=== PATIENT | female | born 1970 | race Two or more races ===

== ENCOUNTER 2020-08-09 08:29 | Outpatient (RCR) | payer OTHER, SELFPAY | END 2020-09-16 13:02 | disposition home or self-care (01) | LOC: HO.WCC 08:29 | PROVIDERS: PCP Internal Medicine; Visit Provider Plastic Surgery | DX: S21.001D Unspecified open wound of right breast, subsequent encounter (principal); I16.0 Hypertensive urgency | CPT/HCPCS: 11042; 99212 ==

== ENCOUNTER 2024-01-09 14:13 | Outpatient (AMB) | payer OTHER, SELFPAY ==
[2024-01-09 14:16] VITALS: BP 138/80; PULSE 103; O2SAT 97; BMI 31.9
--- NOTE | 2024-01-09 14:16 | HO.NEPHOV_ITS ---
HPI HPI Comments History of Present Illness Details Kimmy is a middle aged woman with SLE Recently hospitalized Currently on tapering dose of Prednisone BP is well controlled Off Spironolatone Metoprolol has been added PFSH Family History Mother Diabetes Father Diabetes Hypertension Social History Patient Tobacco Use Status: Never used Tobacco Vital Signs 01/09/24 14:16 Height 5 ft 4 in Weight 186 lb BMI 31.9 BP 138/80 Blood Pressure Location Lt brachial Position Sitting Pulse 103 H Pulse Source Pulse Oximeter Pulse Oximetry (%) 97 Oxygen Delivery Method Room Air Physical Exam Vital Signs: Last Vital Signs Pulse 103 H 01/09/24 14:16 BP 138/80 01/09/24 14:16 Pulse Ox 97 01/09/24 14:16 Oxygen Delivery Method Room Air 01/09/24 14:16 BMI result Body Mass Index 31.9 Const General: comfortable Nutritional Appearance: well nourished Orientation/consciousness: patient oriented x3 HEENT Head: No normal to inspection Mouth: moist mucous membranes Neck Neck: Yes supple and Yes no JVD Resp Auscultation: clear to auscultation bilaterally, no rales and rub present Cardio Jugular venous distension: no JVD Palpation: no palpable S3 and no palpable S4 Heart sounds: no rubs GI Palpation (GI): Soft to palpation and nontender Percussion: No Fluid wave present General: Yes no CVA tenderness Back/Spine/Pelvis Back: no CVA tenderness Skin General skin exam: no rashes or lesions noted Neuro General: patient oriented x3 Extrem General: Yes no pedal edema and No clubbing Assessment & Plan Assessment & Plan (1) SLE (systemic lupus erythematosus related syndrome): Code(s): M32.9 - Systemic lupus erythematosus, unspecified (2) CKD (chronic kidney disease): Code(s): N18.9 - Chronic kidney disease, unspecified (3) HTN (hypertension): Code(s): I10 - Essential (primary) hypertension (4) Albuminuria: Code(s): R80.9 - Proteinuria, unspecified Plan 53-year-old woman with a history of lupus nephritis and hypertension. At present renal function stable with a serum creatinine of 0.8 mg/dL. This is her baseline. We will continue to monitor urinary protein excretion. Blood pressure is better controlled For now we will continue with spironolactone. No changes were made to her antihypertensive medications. SLE. Currently being managed by a office clinician and she is on mycophenolate. Hydroxychloroquine and prednisone. Orders: Orders Basic Metabolic Panel 4 Months N18.9 - Chronic kidney disease, unspecified, M32.9 - Systemic lupus erythematosus, unspecified Creatinine Urine 4 Months N05.9 - Unspecified nephritic syndrome with unspecified morphologic changes, N18.9 - Chronic kidney disease, unspecified, M32.9 - Systemic lupus erythematosus, unspecified Total Protein Urine Random 4 Months N18.9 - Chronic kidney disease, unspecified, M32.9 - Systemic lupus erythematosus, unspecified UA and rflx microscopic 4 Months N18.9 - Chronic kidney disease, unspecified, M32.9 - Systemic lupus erythematosus, unspecified Coding Level of Care Code Est Pt Level 4 (35008) Diagnoses SLE (systemic lupus erythematosus related syndrome) M32.9 CKD (chronic kidney disease) N18.9 HTN (hypertension) I10 Albuminuria R80.9 Results Reviewed Results Reviewed: 01/04/24 Cr 0.7 HgB 9.8 UA: aib 1+ RBC 8 Nephrology Results: No Data to Display
== END 2024-01-09 14:56 | disposition home or self-care (01) ==
PROVIDERS: PCP Internal Medicine; Visit Provider Internal Medicine Hypertension Specialist
DX: M32.9 Systemic lupus erythematosus, unspecified (principal); I12.9 Hypertensive chronic kidney disease with stage 1 through stage 4 chronic kidney disease, or unspecified chronic kidney disease; N18.9 Chronic kidney disease, unspecified; R80.9 Proteinuria, unspecified
CPT/HCPCS: 99214

== ENCOUNTER → 2024-01-09 14:13 | Outpatient (BNVA) | payer OTHER, SELFPAY | PROVIDERS: PCP Internal Medicine; Visit Provider Internal Medicine Hypertension Specialist ==

== ENCOUNTER 2024-05-28 13:52 | Outpatient (AMB) | payer OTHER, SELFPAY ==
[2024-05-28 14:05] VITALS: BP 140/82; PULSE 122; O2SAT 98; BMI 31.8
--- NOTE | 2024-05-28 14:05 | HO.NEPHOV ---
Vital Signs 05/28/24 14:05 Height 5 ft 4 in Weight 185 lb BMI 31.8 BP 140/82 H Blood Pressure Location Lt brachial Position Sitting Pulse 122 H Pulse Source Pulse Oximeter Pulse Oximetry (%) 98 Oxygen Delivery Method Room Air Intake Visit Reasons: May follow up/ Conf Sheriff Required: No Accompanied by: Self / Same As Patient Allergies acetaminophen Allergy (Mild, Verified 05/28/24 14:07) Unknown codeine Allergy (Mild, Verified 05/28/24 14:07) Unknown sulfamethoxazole [From Sulfamethoxazole-Trimethoprim] Allergy (Mild, Verified 05/28/24 14:07) Unknown trimethoprim [From Sulfamethoxazole-Trimethoprim] Allergy (Mild, Verified 05/28/24 14:07) Unknown HPI Comments Details: Kimmy is a middle aged woman with SLE Recently hospitalized Currently on tapering dose of Prednisone BP is well controlled Off Spironolatone Metoprolol has been added 05/28/24 DEveloped anemia Had rectal bleed- s/p colonoscopy s/p transfusion Following with Dr. Andrea [facility] Family History Mother Diabetes Father Diabetes Hypertension Social History Patient Tobacco Use Status: Never used Tobacco Physical Exam Vital Signs: Last Vital Signs Pulse 122 H 05/28/24 14:05 BP 140/82 H 05/28/24 14:05 Pulse Ox 98 05/28/24 14:05 Oxygen Delivery Method Room Air 05/28/24 14:05 BMI result Body Mass Index 31.8 Results Reviewed Results Reviewed: 01/04/24 Cr 0.7 HgB 9.8 UA: aib 1+ RBC 8 Nephrology Results: No Data to Display Assessment & Plan Assessment & Plan (1) SLE (systemic lupus erythematosus related syndrome): Code(s): M32.9 - Systemic lupus erythematosus, unspecified Category: Medical (2) CKD (chronic kidney disease): Code(s): N18.9 - Chronic kidney disease, unspecified Category: Medical (3) HTN (hypertension): Code(s): I10 - Essential (primary) hypertension Category: Medical (4) Albuminuria: Code(s): R80.9 - Proteinuria, unspecified Category: Medical Plan 53-year-old woman with a history of lupus nephritis and hypertension. At present renal function stable with a serum creatinine of 0.8 mg/dL. This is her baseline. We will continue to monitor urinary protein excretion. Blood pressure is better controlled For now we will continue with spironolactone. No changes were made to her antihypertensive medications. SLE. Currently being managed by a night patrol inspector and she is on mycophenolate. Hydroxychloroquine and prednisone. Anemia secondary to blood loss. h/o HEmorrhoids work up in progress Orders: Orders Basic Metabolic Panel 1 Week I10 - Essential (primary) hypertension, M32.9 - Systemic lupus erythematosus, unspecified, N18.9 - Chronic kidney disease, unspecified Complete Blood Count Auto Diff 1 Week I10 - Essential (primary) hypertension, M32.9 - Systemic lupus erythematosus, unspecified, N18.9 - Chronic kidney disease, unspecified Coding Level of Care Code Est Pt Level 4 (91268) Diagnoses SLE (systemic lupus erythematosus related syndrome) M32.9 CKD (chronic kidney disease) N18.9 HTN (hypertension) I10 Albuminuria R80.9
== END 2024-05-28 14:23 | disposition home or self-care (01) ==
PROVIDERS: PCP Internal Medicine; Visit Provider Internal Medicine Hypertension Specialist
DX: M32.9 Systemic lupus erythematosus, unspecified (principal); I12.9 Hypertensive chronic kidney disease with stage 1 through stage 4 chronic kidney disease, or unspecified chronic kidney disease; N18.9 Chronic kidney disease, unspecified; R80.9 Proteinuria, unspecified
CPT/HCPCS: 99214

== ENCOUNTER → 2024-05-28 13:52 | Outpatient (BNVA) | payer OTHER, SELFPAY | PROVIDERS: PCP Internal Medicine; Visit Provider Internal Medicine Hypertension Specialist ==

== ENCOUNTER 2024-08-13 08:53 | Outpatient (AMB) | payer OTHER, SELFPAY ==
--- NOTE | 2024-08-13 08:51 | HO.NEPHOV_ITS ---
Vital Signs 08/13/24 08:53 Height 5 ft 4 in Weight 195 lb BMI 33.5 BP 115/80 Blood Pressure Location Rt brachial Position Sitting Pulse 82 Pulse Source Pulse Oximeter Pulse Oximetry (%) 96 Oxygen Delivery Method Room Air Intake Visit Reasons: 3 mon follow up/ Conf Biomedical Engineering Supervisor Required: No Accompanied by: Self / Same As Patient Allergies acetaminophen Allergy (Mild, Verified 08/13/24 08:55) Unknown codeine Allergy (Mild, Verified 08/13/24 08:55) Unknown sulfamethoxazole [From Sulfamethoxazole-Trimethoprim] Allergy (Mild, Verified 1 08:55) Unknown trimethoprim [From Sulfamethoxazole-Trimethoprim] Allergy (Mild, Verified 08/13/24 08:55) Unknown Medication List - Last Reconciled 08/13/24 by James eLe MD albuterol sulfate 90 mcg/actuation inhalation amlodipine 10 mg PO DAILY aspirin 81 mg PO DAILY atorvastatin 20 mg PO DAILY budesonide-formoterol 160-4.5 mcg/actuation (Symbicort) inhalation carvedilol 25 mg PO BID cetirizine 10 mg PO DAILY cyanocobalamin (vitamin B-12) 1,000 mcg sublingual DAILY cyclobenzaprine 10 mg PO BEDTIME doxycycline monohydrate 100 mg PO DAILY PRN hydrochlorothiazide 25 mg PO DAILY hydroxychloroquine 200 mg PO BID levothyroxine 200 mcg PO DAILY magnesium oxide 400 mg PO DAILY metformin 1,000 mg PO DAILY methylprednisolone 0 mg PO mycophenolate mofetil (CellCept) 500 mg PO ONCE omeprazole 20 mg PO DAILY prednisone 10 mg PO DAILY tiotropium bromide 2.5 mcg/actuation (Spiriva Respimat) 2 puffs inhalation DAILY HPI Comments Details: Kimmy is a middle aged woman with SLE Recently hospitalized Currently on tapering dose of Prednisone BP is well controlled Off Spironolatone Metoprolol has been added 05/28/24 DEveloped anemia Had rectal bleed- s/p colonoscopy s/p transfusion Following with Dr. Andrea [facility] Family History Mother Diabetes Father Diabetes Hypertension Social History Patient Tobacco Use Status: Never used Tobacco Physical Exam Vital Signs: Last Vital Signs Pulse 82 08/13/24 08:53 BP 115/80 08/13/24 08:53 Pulse Ox 96 08/13/24 08:53 Oxygen Delivery Method Room Air 08/13/24 08:53 BMI result Body Mass Index 33.5 Const General: comfortable; No acute distress Orientation/consciousness: patient oriented x3 Eyes General: appearance normal, both eyes and all related structures Visual Hercules: normal visual hercules by confrontation Neck Neck: Yes supple and Yes no JVD Resp Effort & Inspection: normal respiratory effort and respiratory effort not decreased Auscultation: rhonchi Cardio Palpation: no palpable S3 and no palpable S4 Heart sounds: no rubs GI Inspection: Yes normal to inspection Palpation (GI): Soft to palpation Percussion: Yes normal to percussion Auscultation: normal bowel sounds General: Yes no CVA tenderness Back/Spine/Pelvis Back: no CVA tenderness Skin General skin exam: no petechiae and no purpura Neuro General: patient oriented x3 and no focal motor deficits Extrem General: No clubbing and No edema Results Reviewed Nephrology Results: No Data to Display Assessment & Plan Assessment & Plan (1) SLE (systemic lupus erythematosus related syndrome): Code(s): M32.9 - Systemic lupus erythematosus, unspecified Category: Medical (2) CKD (chronic kidney disease): Code(s): N18.9 - Chronic kidney disease, unspecified Category: Medical (3) HTN (hypertension): Code(s): I10 - Essential (primary) hypertension Category: Medical (4) Albuminuria: Code(s): R80.9 - Proteinuria, unspecified Category: Medical Plan 53-year-old woman with a history of lupus nephritis and hypertension. At present renal function stable with a serum creatinine of 0.8 mg/dL. This is her baseline. We will continue to monitor urinary protein excretion. Blood pressure is better controlled Off spironolactone. Now on Amlodipine/Coreg/HCTZ No changes were made to her antihypertensive medications. SLE. Currently being managed by a deaf/hard of hearing specialist and she is on mycophenolate. Hydroxychloroquine and prednisone. Anemia secondary to blood loss. h/o Hemorrhoids s/p Transfusion HgB up to 9.8 NO further bleeding Coding Level of Care Code Est Pt Level 4 (76596) Diagnoses SLE (systemic lupus erythematosus related syndrome) M32.9 CKD (chronic kidney disease) N18.9 HTN (hypertension) I10 Albuminuria R80.9
[2024-08-13 08:53] VITALS: BP 115/80; PULSE 82; O2SAT 96; BMI 33.5
== END 2024-08-13 09:09 | disposition home or self-care (01) ==
PROVIDERS: PCP Internal Medicine; Visit Provider Internal Medicine Hypertension Specialist
DX: M32.9 Systemic lupus erythematosus, unspecified (principal); I12.9 Hypertensive chronic kidney disease with stage 1 through stage 4 chronic kidney disease, or unspecified chronic kidney disease; N18.9 Chronic kidney disease, unspecified; R80.9 Proteinuria, unspecified
CPT/HCPCS: 99213

== ENCOUNTER → 2024-08-13 08:53 | Outpatient (BNVA) | payer OTHER, SELFPAY | PROVIDERS: PCP Internal Medicine; Visit Provider Internal Medicine Hypertension Specialist ==

== ENCOUNTER 2024-12-24 10:31 | Outpatient (AMB) | payer OTHER, SELFPAY ==
[2024-12-24 10:34] VITALS: BP 112/78; PULSE 87; O2SAT 95; BMI 35.2
--- NOTE | 2024-12-24 10:34 | HO.NEPHOV ---
Vital Signs 12/24/24 10:34 Height 5 ft 4 in Weight 205 lb BMI 35.2 BP 112/78 Blood Pressure Location Lt brachial Position Sitting Pulse 87 Pulse Source Pulse Oximeter Pulse Oximetry (%) 95 Oxygen Delivery Method Room Air Intake Visit Reasons: 4m follow up/ Conf Space Controller Required: No Accompanied by: Self / Same As Patient Allergies acetaminophen Allergy (Mild, Verified 12/24/24 10:36) Unknown codeine Allergy (Mild, Verified 12/24/24 10:36) Unknown sulfamethoxazole [From Sulfamethoxazole-Trimethoprim] Allergy (Mild, Verified 12/24/24 10:36) Unknown trimethoprim [From Sulfamethoxazole-Trimethoprim] Allergy (Mild, Verified 12/24/24 10:36) Unknown Medication List - Last Reconciled 12/24/24 by James Lee MD albuterol sulfate 90 mcg/actuation inhalation amlodipine 10 mg PO DAILY aspirin 81 mg PO DAILY atorvastatin 20 mg PO DAILY budesonide-formoterol 160-4.5 mcg/actuation (Symbicort) inhalation carvedilol 25 mg PO BID cetirizine 10 mg PO DAILY clonidine HCl 0.2 mg PO DAILY cyanocobalamin (vitamin B-12) 1,000 mcg sublingual DAILY cyclobenzaprine 10 mg PO BEDTIME PRN doxycycline monohydrate 100 mg PO DAILY PRN hydrochlorothiazide 25 mg PO DAILY hydroxychloroquine 200 mg PO BID ibuprofen 600 mg PO PRN levothyroxine 200 mcg PO DAILY magnesium oxide 400 mg PO DAILY metformin 500 mg PO TID methylprednisolone 4 mg PO PRN mycophenolate mofetil (CellCept) 500 mg PO ONCE omeprazole 20 mg PO DAILY prednisone 10 mg PO DAILY tiotropium bromide 2.5 mcg/actuation (Spiriva Respimat) 2 puffs inhalation DAILY HPI Comments Details: Kimmy is a middle aged woman with SLE Recently hospitalized Currently on tapering dose of Prednisone; BP is well controlled ; Off Spironolatone Metoprolol has been added 05/28/24 DEveloped anemia; Had rectal bleed- s/p colonoscopy; s/p transfusion ;Following with Dr. Andrea 12/24/24 Doing better. No new issues today. PFSH Family History Mother Diabetes Father Diabetes Hypertension Social History Patient Tobacco Use Status: Never used Tobacco Physical Exam Vital Signs: Last Vital Signs Pulse 87 12/24/24 10:34 BP 112/78 12/24/24 10:34 Pulse Ox 95 12/24/24 10:34 Oxygen Delivery Method Room Air 12/24/24 10:34 BMI result Body Mass Index 35.2 Const General: comfortable; No acute distress Orientation/consciousness: patient oriented x3 Eyes General: appearance normal, both eyes and all related structures Visual Hercules: normal visual hercules by confrontation Neck Neck: Yes supple and Yes no JVD Resp Effort & Inspection: normal respiratory effort and respiratory effort not decreased Auscultation: rhonchi Cardio Palpation: no palpable S3 and no palpable S4 Heart sounds: no rubs GI Inspection: Yes normal to inspection Palpation (GI): Soft to palpation Percussion: Yes normal to percussion Auscultation: normal bowel sounds General: Yes no CVA tenderness Back/Spine/Pelvis Back: no CVA tenderness Skin General skin exam: no petechiae and no purpura Neuro General: patient oriented x3 and no focal motor deficits Extrem General: No clubbing and No edema Results Reviewed Nephrology Results: No Data to Display Assessment & Plan Assessment & Plan (1) SLE (systemic lupus erythematosus related syndrome): Code(s): M32.9 - Systemic lupus erythematosus, unspecified Category: Medical (2) CKD (chronic kidney disease): Code(s): N18.9 - Chronic kidney disease, unspecified Category: Medical (3) HTN (hypertension): Code(s): I10 - Essential (primary) hypertension Category: Medical (4) Albuminuria: Code(s): R80.9 - Proteinuria, unspecified Category: Medical Plan 53-year-old woman with a history of lupus nephritis and hypertension. At present renal function stable with a serum creatinine of 0.8 mg/dL. This is her baseline. We will continue to monitor urinary protein excretion. Blood pressure is better controlled Off spironolactone. Now on Amlodipine/Coreg/HCTZ ; No changes were made to her antihypertensive medications. SLE. Currently being managed by a anthropology professor and she is on mycophenolate. Hydroxychloroquine and prednisone. Anemia secondary to blood loss. h/o Hemorrhoids; s/p Transfusion ; HgB up to 9.8 ;NO further bleeding Orders: Orders Basic Metabolic Panel 5 Months N18.9 - Chronic kidney disease, unspecified, I10 - Essential (primary) hypertension, M32.9 - Systemic lupus erythematosus, unspecified Total Protein Urine Random 5 Months N18.9 - Chronic kidney disease, unspecified, I10 - Essential (primary) hypertension, M32.9 - Systemic lupus erythematosus, unspecified Creatinine Urine 5 Months N18.9 - Chronic kidney disease, unspecified, I10 - Essential (primary) hypertension, M32.9 - Systemic lupus erythematosus, unspecified UA and rflx microscopic 5 Months N18.9 - Chronic kidney disease, unspecified, I10 - Essential (primary) hypertension, M32.9 - Systemic lupus erythematosus, unspecified Coding Level of Care Code Est Pt Level 4 (58128) Diagnoses SLE (systemic lupus erythematosus related syndrome) M32.9 CKD (chronic kidney disease) N18.9 HTN (hypertension) I10 Albuminuria R80.9
--- OUTSIDE RECORDS SUMMARY | 2024-12-24 11:10 | XMS_ITS | Clinical Summary ---
Author Organization [facility] Address [address] [place] [address] Phone Care Team Providers Care Academic Vice President Name Role Phone Jamir Rubi MD Primary Care Provider Allergies Active Allergy Reactions Criticality Noted Date Comments Acetaminophen-Codeine 01/20/2021 Codeine Other (see comments) 01/20/2021 Sulfamethoxazole-Trimethoprim Other (see comments) 01/20/2021 Medications fluticasone-salm eterol (ADVAIR DISKUS) 100-50 MCG/DOSE diskus inhaler Advair Diskus 100 mcg-50 mcg/dose powder for inhalation Active Cobalamin Combinations (Vitamin D75-Hjfsi Acid) 500-400 MCG tablet Take 1 tablet by mouth 1 (one) time each day Active Albuterol Sulfate (ProAir RespiClick) 108 (90 Base) MCG/ACT aerosol powder Active Vitamin A 3 MG (45867 UT) capsule Take 1 capsule by mouth 1 (one) time each day 10/30/20 20 Active valACYclovir (VALTREX) 1 g tablet valacyclovir 1 gram tablet Active triamcinolone (KENALOG) 0.1 % cream triamcinolone acetonide 0.1 % topical cream Active traMADol (ULTRAM) 50 MG tablet Take 1 tablet by mouth Active predniSONE (DELTASONE) 5 MG tablet Take 1.5 tablets by mouth 1 (one) time each day Active omeprazole (PriLOSEC) [address] capsule Take 1 capsule by mouth in the morning and 1 capsule in the evening. Active mycophenolate (CELLCEPT) 500 MG tablet Take 1 tablet by mouth 1 (one) time each day Active metFORMIN (GLUCOPHAGE) 500 MG tablet Take 2 tablets by mouth 1 (one) time each day Active lidocaine (LIDODERM) 5 % patch lidocaine 5 % topical patch Active levothyroxine (SYNTHROID, LEVOTHROID) 200 MCG tablet Take 2 tablets by mouth every other day Active hyoscyamine (LEVBID) 0.375 MG 12 hr tablet Take 375 mcg by mouth 12/30/19 21 Active hydroxychloroqui ne (PLAQUENIL) 200 MG tablet Take 2 tablets by mouth 1 (one) time each day Active doxycycline (ADOXA) 100 MG tablet Take 100 mg by mouth 12/29/19 21 Active cyclobenzaprine (FLEXERIL) 10 MG tablet cyclobenzaprine 10 mg tablet Active cholecalciferol (VITAMIN D-3) 25 MCG (1000 UT) capsule Take 2 capsules by mouth 2 (two) times a day Active cetirizine (ZyrTEC) 10 MG tablet Take 10 mg by mouth 1 (one) time each day 12/20/19 21 Active Calcium Carbonate-Vitami n D (calcium-vitamin D) 500-200 MG-UNIT tablet Take 1 tablet by mouth 1 (one) time each day Active Symbicort 160-4.5 MCG/ACT inhaler INHALE 2 PUFFS BY MOUTH TWICE A DAY 10/30/20 20 Active aspirin (ST NBA) 81 MG EC tablet Take 1 tablet by mouth 1 (one) time each day Active labetalol (NORMODYNE) 100 MG tablet Take 200 mg by mouth 04/05/20 21 Active amLODIPine (NORVASC) 10 MG tablet Take 10 mg by mouth 1 (one) time each day 10/06/20 22 Active methylPREDNISolo ne (MEDROL DOSPAK) 4 MG tablet Take 4 mg by mouth 08/09/20 22 Active Banophen 25 MG capsule Take 25 mg by mouth 1 (one) time each day 10/05/20 22 Active Incruse Ellipta 62.5 MCG/ACT aerosol powder INHALE 1 PUFF BY INHALATION ROUTE EVERY DAY AT THE SAME TIME EACH DAY 10/04/20 22 Active spironolactone-h ydroCHLOROthiazi de (Aldactazide) 25-25 MG per tablet Take 0.5 tablets by mouth 1 (one) time each day 30 tablet 3 01/25/20 23 Active Active Problems Problem Noted Date Diagnosed Date Prediabetes 01/24/2023 Obese class II 01/24/2023 Chest pain 01/24/2023 Asthma 01/24/2023 Contact dermatitis 01/20/2021 Rheumatoid arthritis 01/20/2021 Proteinuria 01/20/2021 Chronic kidney disease stage 1 01/20/2021 Essential hypertension 01/20/2021 Systemic lupus erythematosus 01/20/2021 Pain in both feet 07/25/2017 Plantar fasciitis 07/25/2017 Immunizations Name Administration Dates Next Due Influenza, Quadrivalent, With Preservative 10/10 Family History Medical History Relation Comments Diabetes Father Hypertension Father Diabetes Mother Heart disease Sibling sister, heart mu rmus Relation Status Comments Father Alive Mother Alive Sibling Social History Tobacco Use Types Packs/Day Years Used Date Smoking Tobacco: Never Smokeless Tobacco: Never Tobacco Cessation:Counseling Given: Not Answered Alcohol Use Standard Drinks/Week Comments No 0 (1 standard drink = 0.6 oz pur e alcohol) Comments Unknown Sex and Gender Information Value Date Recorded Sex Assigned at Not on file Legal Sex Female 4:50 PM EST Gender Identity Not on file Sexual Orientation Not on file Last Filed Vital Signs Vital Sign Reading Time Taken Comments Blood Pressure 144/90 01/24/2023 1:40 PM EDT Pulse 81 01/24/2023 1:40 PM EDT Temperature - - Respiratory Rate - - Oxygen Saturation 99% 01/24/2023 1:40 PM EDT Inhaled Oxygen Concentration - - Weight 96.4 kg (212 lb 9.6 oz) 01/24/2023 1:40 P M EDT Height 162.6 cm (5' 4 ) 10/13/2019 12:00 PM EST Body Mass Index 36.49 10/13/2019 12:00 PM EST Plan of Treatment Health Maintenance Due Date Last Done Comments Breast Cancer Screening 1972 Pneumococcal Vaccine: Pediat rics (0 to 5 Years) and At-Risk Patients (6 to 64 Years) (1 of 2 - PCV) 1978 Hepatitis B Vaccine (1 of 3 - 19+ 3-dose series) 10/18 Colorectal Cancer Screening: Annual FOBT 2021 Colorectal Cancer Screening: Colonoscopy 2021 Colorectal Cancer Screening: Sigmoidoscopy 2021 Influenza Vaccine (#1) 2024 10/10/[address] [place] [address] [place] [address] [facility] Care Teams Academic Vice President Relationship Specialty Start Date End Date Jamir Rubi MD [address] [place] [address] [place] [address] PCP - General 11/15/20
--- OUTSIDE RECORDS SUMMARY | 2024-12-24 11:10 | XMS_ITS | Clinical Summary ---
Author Organization [facility] Address [address] [place] [address] Care Team Providers Care Application Technician Name Role Phone Jamir Rubi MD Primary Care Provider [phone] Allergies Active Allergy Reactions Criticality Noted Date Comments Sulfamethoxazole-Trimethoprim 2023 Azathioprine 12/11/2023 Menthol 12/11/2023 Acetaminophen-Codeine 12/11/2023 Valsartan Anaphylaxis High 12/11/2023 Medications Medication Sig Dispensed Refills Start Date End Date Status acetaminophen (Tylenol 8 Hour Arthritis Pain) 650 MG CR tablet Take 1 tablet (650 mg total) by mouth every 8 (eight) hours as needed for pain. 0 Active predniSONE (DELTASONE) 5 mg tablet Take 2 tablets (10 mg total) by mouth. 0 Active albuterol 108 (90 Base) MCG/ACT inhaler Inhale 2 puffs into the lungs every 6 (six) hours as needed for wheezing. 0 Active albuterol (PROVENTIL) (2.5 MG/3ML) 0.083% nebulizer solution Take 3 mL (2.5 mg total) by nebulization every 6 (six) hours as needed for wheezing. 0 Active Umeclidinium [place] (Incruse Ellipta) 62.5 MCG/ACT AEPB Inhale into the lungs. 0 Active budesonide-formotero l (Symbicort) 160-4.5 MCG/ACT inhaler Inhale 2 inhalations into the lungs 2 (two) times a day. 0 Active EPINEPHrine 0.3 MG/0.3ML SOSY Inject as directed. 0 Ac tive cetirizine (ZyrTEC) 10 MG tablet Take 1 tablet (10 mg total) by mouth daily. 0 Active diphenhydrAMINE (Banophen) 25 mg capsule Take 1 capsule (25 mg total) by mouth every 6 (six) hours as needed for itching. 0 Active aspirin EC 81 MG tablet Take 1 tablet (81 mg total) by mouth daily. 0 Active mycophenolate (CELLCEPT) 500 MG tablet Take by mouth 2 (two) times a day. 0 Active hydroxychloroquine (PLAQUENIL) 200 MG tablet Take by mouth daily. 0 Acti ve Multiple Vitamins-Minerals (MULTI FOR HER 50+ PO) Take by mouth. 0 Active zinc sulfate (ZINCATE) 220 (50 Zn) MG capsule Take 1 capsule (220 mg total) by mouth daily. 0 Active magnesium oxide 400 (240 Mg) MG TABS tablet Take 1 tablet (400 mg total) by mouth 2 (two) times a day. 0 Active vitamin B-12 (CYANOCOBALAMIN) 500 MCG tablet Take 2 tablets (1,000 mcg total) by mouth daily. 0 Active vitamin A 3 MG (76205 UT) CAPS capsule Take 1 capsule (3 mg total) by mouth daily. 0 Active Turmeric-Angie 150-25 MG CHEW Chew by mouth. 0 Active Calcium Carbonate-Vit D-Min (GNP Calcium Plus 600 +D) 600-200 MG-UNIT TABS Take by mouth. 0 Active vitamin D3 (cholecalciferol) 25 MCG (1000 UT) tablet Take 1 tablet (25 mcg total) by mouth daily. 0 Active aspirin-sod bicarb-citric acid ([place]) 325 MG TBEF Take 325 mg by mouth every 6 (six) hours as needed. 0 Active omeprazole (PriLOSEC) 20 MG capsule Take 1 capsule (20 mg total) by mouth daily. 0 Active desonide (DESOWEN) 0.05 % ointment Apply topically 2 (two) times a day. 0 Active mupirocin (BACTROBAN) 2 % ointment Apply topically 3 (three) times a day. 0 Active clobetasol (TEMOVATE) 0.05 % external solution Apply topically 2 (two) times a day. 0 Active amLODIPine (NORVASC) tablet 10 mg Take 1 tablet (10 mg total) by mouth daily. 0 Active levothyroxine (SYNTHROID) tablet 200 mcg Take 1 tablet (200 mcg total) by mouth every morning on an empty stomach. 0 Active Tiotropium [place] Monohydrate (Spiriva Respimat) 2.5 MCG/ACT AERS Inhale into the lungs. 0 Active hydroCHLOROthiazide (HYDRODIURIL) tablet 25 mg Take 1 tablet (25 mg total) by mouth. 0 07/21/2015 Active Active Problems Problem Noted Date Diagnosed Date Gastrointestinal hemorrhage 05/15/2024 Social History Tobacco Use Types Packs/Day Years Used Date Smoking Tobacco: Never Smokeless Tobacco: Never Tobacco Cessation:Counseling Given: Not Answered Alcohol Use Standard Drinks/Week Comments Yes 0 (1 standard drink = 0.6 oz pur e alcohol) wine occ Sex and Gender Information Value Date Recorded Sex Assigned at Female 11/22/2023 10:04 AM EST Gender Identity Not on file Sexual Orientation Not on file Job Start Date Occupation Industry Not on file Not on file Not on file Last Filed Vital Signs Vital Sign Reading Time Taken Comments Blood Pressure 125/82 07/29/2024 1:08 PM EDT Pulse 74 07/29/2024 1:08 PM EDT Temperature 36.2 ??C (97.2 ??F) 07/29/2024 1:08 PM ED T Respiratory Rate 18 06/04/2024 1:39 PM EDT Oxygen Saturation 98% 07/29/2024 1:08 PM EDT Inhaled Oxygen Concentration - - Weight 88.9 kg (196 lb) 07/29/2024 1:08 PM EDT Height - - Body Mass Index - - Plan of Treatment Health Maintenance Due Date Last Done Comments Hepatitis B Vaccines (1 of 3 - 3-dose series) 1972 Hepatitis C Screening 1972 Pneumococcal Vaccine (1 of 2 - PCV) 1978 Depression Screening 1984 Preventative Health Evaluation 1990 Shingrix-Zoster Vaccine (1 o f 2) 1991 Cervical Cancer Screening (Pap Smear) 1993 Colon Cancer Screening (Colonoscopy) 2017 Breast Cancer Screening (Mammogram) 2022 DTap / Tdap / Td (1 - Tdap) 02/08/2024 02/07/2024 COVID-19 Vaccine (4 - 2023-2 5 season) 2024 09/30/2021, 02/12/2021, 01/22/2021 Influenza Vaccine (#1) 2024 3, 10/10/2016 RSV Ped < 20 months Aged Out No longe r eligible based on patient's age to complete this topic Care Teams Application Technician Relationship Specialty Start Date End Date Jamir Rubi MD [address] [address] PCP - General Internal Medicine 11/22/23
--- OUTSIDE RECORDS SUMMARY | 2024-12-24 11:10 | XMS_ITS | Encounter Summary ---
Author Organization [employer] Address [address] [place] [address] Care Team Providers Care Electronic Coils Supervisor Name Role Phone Jamir Rubi MD Primary Care Provider Encounter Details Date Type Department Care Team (Late st Contact Info) Description 11/03/2024 Lab Requisition [facility] - Main Lab [address] [place] [phone] Anthony Olmstead MD [address] [phone] Atypical squamous cells of undetermined significance on cytologic smear of cervix (ASC-US) Social History Tobacco Use Types Packs/Day Years Used Date Smoking Tobacco: Never Smokeless Tobacco: Never Alcohol Use Standard Drinks/Week Comments Yes 0 (1 standard drink = 0.6 oz pur e alcohol) Comments Unknown Sex and Gender Information Value Date Recorded Sex Assigned at Female 11/24/2024 3:37 PM EST Legal Sex Female 1:55 PM EST Gender Identity Female 11/24/2024 3:37 PM EST Sexual Orientation Straight 11/24/2024 3: 37 PM EST documented as of this encounter Plan of Treatment Upcoming Encounters Date Type Department Care Team (Late Contact Info) Description 01/07/2025 12:45 PM EST Appointment [facility] Pulmonary [address] [place] [address] documented as of this encounter Procedures Procedure Name Priority Date/Time Associated Diagnosis Comments PAP SMEAR Routine 10/31/2024 12:00 AM EST Atypical squamous cells of undetermined significance on cytologic smear of cervix (ASC-US) documented in this encounter Results * Pap smear (10/31/2024 12:00 AM EST) Interpretation Negative for intraepithelial lesion or malignancy 11/04/2024 2:31 PM [facility] Clinical Information lsil 11/04/2024 2:31 PM [facility] General Categorization Negative 11/04/2024 2:31 PM [facility] Specimen Adequacy Satisfactory for evaluation, endocervical/casarez sformation zone component present 11/04/2024 2:31 PM [facility] Pap Methodology Liquid Based Pap Test 11/04/2024 2:31 PM [facility] Disclaimer The Pap test is a screening test which carries an inherent false negative rate. These test results should be correlated with the patient's clinical findings and history. This Pap test was processed using an automated screening system. Technical cytopathology services provided by [facility], at [address] [place] [id number] (CLIA # [id number]/Kristen Cormier MD, Second Grade Teacher.) 11/04/2024 2:31 PM [facility] Console Pap Interpretation Reported 11/04/2024 2:31 PM [facility] Brushing/Spatula Cervix uteri structure / Unknown 10/31/2024 11/03/2024 8:14 AM EST us Anthony Olmstead MD LAB CYTOLOGY ORDERABLES Final Result [facility] [address] [place] [address], documented in this encounter Visit Diagnoses Diagnosis Atypical squamous cells of undetermined significance on cytologic smear of cervix (ASC-US) documented in this encounter Care Teams Electronic Coils Supervisor Relationship Specialty Start Date End Date Jamir Rubi MD [address] [place] [address] PCP - General Internal Medicine 11/25/24 documented as of this encounter
--- OUTSIDE RECORDS SUMMARY | 2024-12-24 11:10 | XMS_ITS | Clinical Summary ---
Author Organization [employer] [address] [place] [address] Address [address] [place] [address] Phone Care Team Providers Care Advertising Operations Coordinator Name Role Phone Jamir Longoria MD Primary Care Provider [phone] Encounters Date Type Department Care Team Description 11/24/2024 2:37 PM EST - 11/24/2024 11:59 PM EST Hospital Encounter [facility] Xray [address] [place] [phone] Acute cough Discharge Disposition: Home or Self Care 11/03/2024 Lab Requisition [facility] [address] [place] [phone] Anthony Olmstead MD Mild cervical dysplasia 11/03/2024 Lab Requisition [facility] [address] [place] [phone] Anthony Olmstead MD Atypical squamous cells of undetermined significance on cytologic smear of cervix (ASC-US) from Last 3 Months Immunizations Name Administration Dates Next Due Pfizer SARS-CoV-2 COVID-19, mRNA, LNP-S, preservative free 09/30/2021,02/12/2021,01/22/2021 Social History Tobacco Use Types Packs/Day Years [...] Orientation Straight 11/24/2024 3: 37 PM EST Obstetrics History Last Filed Vital Signs Vital Sign Reading Time Taken Comments Blood Pressure 125/82 07/29/2024 1:08 PM EDT Sit ting Left arm Pulse 74 07/29/2024 1:08 PM EDT Temperature - - Respiratory Rate - - Oxygen Saturation - - Inhaled Oxygen Concentration - - Weight 88.9 kg (196 lb) 07/29/2024 1:08 PM EDT Height 162.6 cm (5' 4 ) 09/14/2022 11:2 7 AM EST Body Mass Index 33.64 09/14/2022 11:27 AM EST Plan of Treatment Upcoming Encounters Date Type Department Care Team (Late st Contact Info) Description 01/07/2025 12:45 PM EST Appointment [facility] Pulmonary [address] [place] [phone] Health Maintenance Due Date Last Done Comments Diabetes: Annual Foot Exam 1982 Diabetes: Annual Retina Eye Exam 1982 Hepatitis B Vaccines (1 of 3 - 19+ 3-dose series) 1991 Pneumococcal Vaccine: 50+ Years (1 of 2 - PCV) 1991 Pneumococcal Vaccine: Pediatrics (0 to 5 Years) and At-Risk Patients (6 to 64 Years) (1 of 2 - PCV) 1991 Zoster Vaccines (1 of 2) 1991 Cholesterol Screening (Lipid Panel) 10/14/2022 Colorectal Cancer Screening: Colonoscopy 10/14/2022 Depression Screening 10/14/2022 HIV Screening 10/14/2022 Hepatitis C Screening 10/14/2022 Social Influencers of Health Screening 10/14/2022 Diabetes: Annual Urine Albumin-Creatinine Ratio (uACR) 10/21/2022 Diabetes: Blood Sugar Control Test (HGBA1C) 10/21/2022 COVID-19 Vaccine () 07/06/2024 12/06/2022, 09/30/2021, 02/12/2021, Additional history exists Diabetes: Annual GFR (Glomerular Filtration Rate) 11/18/2025 11/18/2024, 09/10/2024, 10/09/2023 Hypertension/CHF/CAD Annual BMP Blood Test 11/18/2025 11/18/2024, 09/10/2024, 10/09/2023 Breast Cancer Screening 01/15/2026 01/16/20 24, 10/11/2020, 11/23/2018 Cervical Cancer Screening: Pap Smear 10/31/2027 10/31/2024 DTaP,Tdap,and Td Vaccines (3 - Td or Tdap) 02/06/2034 02/07/2024, 05/29/2023 Influenza Vaccine Completed 08/12/2024, , 10/10/2016 HIB Vaccines Aged Out No longer eligi ble based on patient's age to complete this topic HPV Vaccines Aged Out No longer eligi ble based on patient's age to complete this topic Hepatitis A Vaccines Aged Out No long er eligible based on patient's age to complete this topic IPV Vaccines Aged Out No longer eligi ble based on patient's age to complete this topic MMR Vaccines Aged Out No longer eligi ble based on patient's age to complete this topic Meningococcal ACWY Vaccine Aged Out N o longer eligible based on patient's age to complete this topic Meningococcal B Vacine Aged Out No lo nger eligible based on patient's age to complete this topic RSV Immunization Patients Under 20 months Aged Out No longer eligible based on patient's age to complete this topic Varicella Vaccines Aged Out No longer eligible based on patient's age to complete this topic Procedures Procedure Name Priority Date/Time Associated Diagnosis Comments XR CHEST 2 VIEWS Routine 11/24/2024 2:49 PM EST Acute cough TISSUE EXAM Routine 10/31/2024 Mild cervical dysplasia PAP SMEAR Routine 10/31/2024 12:00 AM EST Atypical squamous cells of undetermined significance on cytologic smear of cervix (ASC-US) [facility] SCREENING DIGITAL Routine 01/16/2024 10:12 AM EDT Encounter for screening mammogram for malignant neoplasm of breast from Last 3 Months or Most Recently Relevant to Health Maintenance Results * XR Chest 2 Views (11/24/2024 2:49 PM EST) Anatomical Region Laterality Modality Body Radiographic Chayito ging 11/24/2024 2:59 PM EST Impressions 11/24/2024 3:03 PM EST Impression: 1. Poor inspiration. 2. Bibasilar subsegmental atelectasis or scar, without significant change from the most recent studies. Telerad EMELY ([id number]) -------- FINAL REPORT -------- Dictated By: Ayanna Salinas Dictated Date: 11/24/2024 14:59 ET Assigned Physician: Ayanna Salinas Reviewed and Electronically Signed By: Ayanna Salinas Signed Date: 11/24/2024 15:03 ET Workstation ID: [id number] Transcribed By: Self Edit Transcribed Date: 11/24/2024 14:59 ET Narrative 11/24/2024 3:03 PM EST History: Cough and dyspnea. Comparison: 01/29/24, 02/24/21, thoracic CTA 01/23/24 Findings: PA and lateral views. This is a poor inspiration, similar to previous. Right hemidiaphragmatic elevation is unchanged. There are thin curvilinear opacities in both lower lungs, similar to the 2023 studies, consistent with subsegmental atelectasis or scar. No developing airspace consolidation is seen. The costophrenic angles are sharp. Mild enlargement of the cardiac silhouette is unchanged. Hilar contours are stable. The pulmonary vascularity appears normal. The regional skeleton is intact. Procedure Note Ayanna Salinas MD - 11/24/2024 History: Cough and dyspnea. Comparison: 01/29/24, 02/24/21, thoracic CTA 01/23/24 Findings: PA and lateral views. This is a poor inspiration, similar to previous.Right hemidiaphragmatic elevation is unchanged. There are thin curvilinearopacities in both lower lungs, similar to the 2023 studies, consistentwith subsegmental atelectasis or scar. No developing airspaceconsolidation is seen. The costophrenic angles are sharp. Mild enlargement of the cardiac silhouette is unchanged. Hilar contoursare stable. The pulmonary vascularity appears normal. The regional skeleton is intact. IMPRESSION: Impression: 1. Poor inspiration. 2. Bibasilar subsegmental atelectasis or scar, without significant changefrom the most recent studies. Telerad PA ([id number]) -------- FINAL REPORT -------- Dictated By: Ayanna Salinas Dictated Date: 11/24/2024 14:59 ET Assigned Physician: Ayanna Salinas Reviewed and Electronically Signed By: Ayanna Salinas Signed Date: 11/24/2024 15:03 ET Workstation ID: [id number] Transcribed By: Self Edit Transcribed Date: 11/24/2024 14:59 ET Jamir Longoria MD IMG XR PROCEDURES Final Resu lt * Tissue Exam (10/31/2024) Final Diagnosis Endocervical curettings: Chronic endocervicitis Benign squamous epithelium No squamous intraepithelial lesion or glandular neoplasm identified 11/04/2024 9:35 AM [facility] Clinical Information 05/2024 LSIL/JUAN PABLO 1 - ECC 11/04/2024 9:35 AM [facility] Gross Description A. Endocervix, ECC: Labeled with the patient's name and information. Received in formalin is a 0.2 cm aggregate of minute garcia-pink possible soft tissue fragments which is submitted in toto in a mesh bag in one cassette, multiple pieces, x 2. JOEY 11/04/2024 9:35 AM [facility] Disclaimer Unless otherwise specified, all tissue is 10% NB formalin fixed and paraffin embedded. 11/04/2024 9:35 AM [facility] Tissue Endocervical structure / Unknown 10/31/2024 11/03/2024 9:39 AM EST Anthony Olmstead MD LAB PATHOLOGY ORDERABLES Final R esult [facility] [address] [place] [address], [place] [phone] * Pap smear (10/31/2024 12:00 AM EST) Interpretation Negative for intraepithelial lesion or malignancy 11/04/2024 2:31 PM [facility] Clinical Information lsil 11/04/2024 2:31 PM [facility] General Categorization Negative 11/04/2024 2:31 PM [facility] Specimen Adequacy Satisfactory for evaluation, endocervical/casarez sformation zone component present 11/04/2024 2:31 PM [facility] Pap Methodology Liquid Based Pap Test 11/04/2024 2:31 PM [facility] Disclaimer The Pap test is a screening test which carries an inherent false negative rate. These test results should be correlated with the patient's clinical findings and history. This Pap test was processed using an automated screening system. Technical cytopathology services provided by [facility], at [address] [place] [address] (CLIA # [id number]/Kristen Cormier MD, Grinder Operator Automatic.) 11/04/2024 2:31 PM [facility] Console Pap Interpretation Reported 11/04/2024 2:31 PM [facility] Brushing/Spatula Cervix uteri structure / Unknown 10/31/2024 11/03/2024 8:14 AM EST Anthony Olmstead MD LAB CYTOLOGY ORDERABLES Final Result [facility] [address] [place] [address], [place] [phone] * [facility] S[facility] (01/16/2024 10:12 AM EDT) Anatomical Region Laterality Modality Mammography 01/16/2024 8:01 AM EDT Narrative 01/16/2024 10:[address] [facility] Diagnostic Imaging Department [address] [place] [address] Patient: ??COLON,LANI ?/Age/Sex: 1970 - 53 - F Unit#: ??[id number] ? Location/Status: ??SPDIMAM/REG CLI ? Mnemonic/Ordering Site: ??DIGSC/SPMAM Ordering Physician: ??JAMIR LONGORIA MD [facility] Screening Digital - 01/16/24813 Report Status:Signed EXAM: [facility] Screening Digital EXAM DATE AND TIME: 01/16/2024 8:15 AM HISTORY: ??Annual screening COMPARISON: ??05/26/2013 TECHNIQUE: Bilateral digital breast tomosynthesis was performed in the CC and MLO projections. Computer aided detection with [employer] 3D 3.1 was employed. TISSUE DENSITY: b. There are scattered areas of fibroglandular density. FINDINGS: No suspicious masses, grouped microcalcifications, or areas of architectural distortion are seen. The skin and vascularity are unremarkable. IMPRESSION: Stable mammographic appearance of the breasts. ??No evidence of malignancy is seen. A negative mammogram in the presence of a clinically suspicious palpable abnormality does not preclude the possibility of malignancy or alter the indications for biopsy. BI-RADS: ??Category 1: Negative RECOMMENDATION(S): 1: Routine screening mammogram BILATERAL in 1 year. 3341F, 7055F Dictating Physician: ??LENARD BUENO MD Electronically Signed by: ??LENARD BUENO MD Dic Date/Time: ??01/16/24 1008 Sign date/Time: ??01/16/24 1012 Procedure Note Lenard Bueno MD - 06/23/2024 [facility] Diagnostic Imaging Department [address] [place] [id number] Patient: LANI DUENAS /Age/Sex: 1970 - 53 - F Unit#: [id number] [facility] Mnemonic/Ordering Site: [facility] Ordering Physician: JAMIR LONGORIA MD [facility] Screening Digital - 01/16/24 - 0814 Report Status:Signed EXAM: [facility] Screening Digital EXAM DATE AND TIME: 01/16/2024 8:15 AM HISTORY: Annual screening COMPARISON: 05/26/2013 TECHNIQUE: Bilateral digital breast tomosynthesis was performed in the CCand MLO projections. Computer aided detection with [employer] 3D 3.1was employed. TISSUE DENSITY: b. There are scattered areas of fibroglandular density. FINDINGS: No suspicious masses, grouped microcalcifications, or areas ofarchitectural distortion are seen. The skin and vascularity are unremarkable. IMPRESSION: Stable mammographic appearance of the breasts. No evidence of malignancyis seen. A negative mammogram in the presence of a clinically suspicious palpable abnormality does not preclude the possibility of malignancy or alter the indications for biopsy. BI-RADS: Category 1: Negative RECOMMENDATION(S): 1: Routine screening mammogram BILATERAL in 1 year. 3341F, 7025F Dictating Physician: LENARD BUENO MD Electronically Signed by: LENARD BUENO MD Dic Date/Time: 01/16/24 1008 Sign date/Time: 01/16/24 1012 Jamir Longoria MD IMG BI PROCEDURES Final Resu lt from Last 3 Months or Most Recently Relevant to Health Maintenance Insurance [facility] Care Teams Advertising Operations Coordinator Relationship Specialty Start Date End Date Jamir Longoria MD [address] [place] [phone] PCP - General Internal Medicine 11/25/24
--- OUTSIDE RECORDS SUMMARY | 2024-12-24 11:10 | XMS_ITS | Encounter Summary ---
Author Organization [employer] Address [address] [place] [address] Care Team Providers Care Jaw Skinner Name Role Phone Jamir Rubi MD Primary Care Provider Encounter Details Date Type Department Care Team (Late st Contact Info) Description 11/03/2024 Lab Requisition [facility] - Main Lab [address] [place] [address] Anthony Olmstead MD 1 [facility] [address] [place] [address] Mild cervical dysplasia Social History Tobacco Use Types Packs/Day Years [...] Info) Description 01/07/2025 12:45 PM EST Appointment Pulmonary [address] [place] [address] documented as of this encounter Procedures Procedure Name Priority Date/Time Associated Diagnosis Comments TISSUE EXAM Routine 10/31/2024 Mild cervical dysplasia documented in this encounter Results * Tissue Exam (10/31/2024) Final Diagnosis Endocervical curettings: Chronic endocervicitis Benign squamous epithelium No squamous intraepithelial lesion or glandular neoplasm identified 11/04/2024 9:35 AM EST [facility] Clinical Information 05/2024 LSIL/JUAN PABLO 1 - ECC 11/04/2024 9:35 AM [facility] Gross Description A. Endocervix, ECC: Labeled with the patient's name and information. Received in formalin is a 0.2 cm aggregate of minute garcia-pink possible soft tissue fragments which is submitted in toto in a mesh bag in one cassette, multiple pieces, x 2. JOEY 11/04/2024 9:35 AM [facility] Disclaimer Unless otherwise specified, all tissue is 10% NB formalin fixed and paraffin embedded. 11/04/2024 9:35 AM [facility] Tissue Endocervical structure / Unknown 10/31/2024 11/03/2024 9:39 AM EST us Anthony Olmstead MD LAB PATHOLOGY ORDERABLES Final R esult [facility] [address] [place] [address], documented in this encounter Visit Diagnoses Diagnosis Mild cervical dysplasia Mild dysplasia of cervix documented in this encounter Care Teams Jaw Skinner Relationship Specialty Start Date End Date Jamir Rubi MD [address] [place] [phone] PCP - General Internal Medicine 11/25/24 documented as of this encounter
--- OUTSIDE RECORDS SUMMARY | 2024-12-24 11:10 | XMS_ITS | Encounter Summary ---
Author Organization [employer]. Address [address] [place] [address] Care Team Providers Care Bowling Ball Assembler Name Role Phone Jamir Rubi MD Primary Care Provider [phone] Encounter Details Date Type Department Care Team (Latest Contact Info) Description 11/24/2024 2:37 PM EST - 11/24/2024 11:59 PM EST Hospital Encounter [facility] Xray [address] [place] [address] Acute cough Discharge Disposition: Home or Self Care Social History Tobacco Use Types Packs/Day Years [...] PM EST documented as of this encounter Discharge Disposition Disposition Code Departure Means Destination Home or Self Care documented in this encounter Plan of Treatment Upcoming Encounters Date Type Department Care Team (Late st Contact Info) Description 01/07/2025 12:45 PM EST Appointment [facility] Pulmonary [address] [place] [address] documented as of this encounter Procedures Procedure Name Priority Date/Time Associated Diagnosis Comments XR CHEST 2 VIEWS Routine 11/24/2024 2:49 PM EST Acute cough documented in this encounter Results * XR Chest 2 Views (11/24/2024 2:49 PM EST) Anatomical Region Laterality Modality Body Radiographic Chayito ging 11/24/2024 2:59 PM EST Impressions 11/24/2024 3:03 PM EST Impression: 1. Poor inspiration. 2. Bibasilar subsegmental atelectasis or scar, without significant change from the most recent studies. Telerad EMELY ([id number]) -------- FINAL REPORT -------- Dictated By: Ayanna Salinas Dictated Date: 11/24/2024 14:59 ET Assigned Physician: Ayanna Salinas Reviewed and Electronically Signed By: Ayanna Salinas Signed Date: 11/24/2024 15:03 ET Workstation ID: [id number] Transcribed By: Self Edit Transcribed Date: 11/24/2024 [...] changefrom the most recent studies. Telerad PA ([id number]) -------- FINAL REPORT -------- Dictated By: Ayanna Salinas Dictated Date: 11/24/2024 14:59 ET Assigned Physician: Ayanna Salinas Reviewed and Electronically Signed By: Ayanna Salinas Signed Date: 11/24/2024 15:03 ET Workstation ID: [id number] Transcribed By: Self Edit Transcribed Date: 11/24/2024 14:59 ET Jamir Rubi MD IMG XR PROCEDURES Final Resu lt documented in this encounter Visit Diagnoses Diagnosis Acute cough documented in this encounter Care Teams Bowling Ball Assembler Relationship Specialty Start Date End Date Jamir Rubi MD PCP - General Internal Medicine 08/23/12 11/24/24 documented as of this encounter
--- OUTSIDE RECORDS SUMMARY | 2024-12-24 11:11 | XMS_ITS | Data Portability ---
Author Organization [place] - [facility], Allergy Address 100 [facility] 100 [place] [address] Care Team Providers Care Solar Photovoltaic Electrician Name Role Phone JOVITA LONGORIA Primary Care Provider [phone] Assessment Encounter Date Assessment Date Assessment LastModified by Organization Details LastModified Time 03/25/2024 03/25/2024 Audiometric testing shows stable conductive hearing loss on the right, and mixed hearing loss on the left. Patient has no interest in considering further surgery for either ear. Patient remains an excellent candidate for binaural amplification. Her current devices are 15 years old and are unlikely to be providing her enough amplification to match her current level of loss. She would like to learn more about new technology, so we will set her up for a hearing aid evaluation. She is medically cleared for amplification bilaterally. Not available 03/25/2024 15:09:22 Plan of Treatment Reminders Order Date Submit Date Provider Last Modified By Organization Details Last Modified Time Details Appointments None record ed. Lab None record ed. Referral None record ed. Procedures None record ed. Surgeries None record ed. Imaging None record ed. Medication Orders None record ed. Patient TargetsNo targets recorded. Patient InstructionsNo instructions recorded. Reason for Referral None Reported. Results Created Date Observation Date Name Description Value Unit Range Abnormal Flag Note LastModifiedBy Organization Detail LastModifiedTime 06/13/20 24 03/25/2024 audio gram No observ ation record ed. [email or web address] Not Available 2023 12:49:51 06/25/20 24 01/06/2021 imagi ng/di agnos tic resul t No observ ation record ed. [email or web address] Not Available 19:51:32 06/25/20 24 01/06/2021 imagi ng/di agnos tic resul t No observ ation record ed. [email or web address] Not Available 19:51:35 06/25/20 24 03/25/2024 imagi ng/di agnos tic resul t No observ ation record ed. [email or web address] Not Available 19:51:47 06/25/20 24 03/25/2024 imagi ng/di agnos tic resul t No observ ation record ed. [email or web address] Not Available 19:51:50 07/10/2007/10/2024 sabiha charles ow study No observ ation record ed. [facility] Diagnosit Imaging Dept [address] [place] [address], [address], 08/10/2024 17:57:35 07/10/2007/10/2024 chest xr [facility] Diagno stic Imagin g Depart ment [address] [place] [address] ____ Jose Roberto t: LANI AUGUSTE D.O.B. /Age/S ex: 1969 - 53 - F Unit#: [id number] Locati on/Sta tus: SPDIGE N/REG CLI Accoun t#: [id number] Mnemon ic/Ord ering Site: [facility] LOW/SP DI Orderi ng Physic bubba: JOSE ALFREDO MEMBRENO MD ___ CR Barium Kota w - - [phone] Report Status :Phyllis d HISTOR Y: The patien t is a 53-yea r-old female with dyspha josiah and a globus sensat ion. FINDIN GS: Roads Superintendent PA radiog raph of the chest demons trates limite d depth of inspir ation. There are degene rative change s of the thorac ic spine as also seen on the prior study perfor med 024. The cardia c and medias tinal contou rs are within normal limits . Minima l blunti ng of the right costop hrenic angle is unchan ged, consis tent with mild pleura l thicke andressa. Bibasi lar linear scarri ng is again seen. There is no consol idatio n, mass, or pulmon wilman vascul ar conges tion. Roads Superintendent latera l radiog raph of the neck demons trates no prever tebral soft tissue swelli ng. The epiglo ttis and aryepi glotti c folds are of normal appear ance. No soft tissue mass is seen. The includ ed portio n of the airway is widely patent . There are degene rative change s of the cervic al spine at C5-6 level. Efferv escent ruth ls were admini stered orally . Thick and thin barium was then admini stered orally under fluoro scopic contro l. The motili ty of the esopha jer is normal . There is no ulcer, strict ure, or fillin g defect . The mucosa l patter n is normal . There is no hiatal hernia and no gastro esopha geal reflux could be elicit ed. There is no radiog raphic eviden ce of esopha gitis. Rapid sequen ce imagin g of the hypoph arynx during swallo wing demons trates prompt initia tion of swallo wing. Flash laryng eal penetr ation occurr ed, withou t humble aspira tion. There is no residu al in the vallec bob nor in the pirifo rm sinuse s. A 13 mm barium tablet was readil y swallo wed and passed rapidl y down the esopha jer into the stomac h. IMPRES RAE: Flash laryng eal penetr ation, withou t humble aspira tion. Otherw ise, normal double contra st esopha gram. Code 46043 The dose-a obie produc t for this proced ure was 559 uGy*m2 . PQRI CPT II G9500 Dictat ing Physic bubba: KAYKAY WAGNER MD Electr onical ly Signed by: KAYKAY WAGNER MD Dic Date/T delta: 823 Sign date/T delta: 827 [facility] (Central Scheduling Radiology) [address] [place], [address], 08/10/2024 17:57:35 Result Notes None recorded. 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 02:14:18 Sensorine ural hearing loss 04008273 Active 2023 MARIS BUSCH [address] [place] [address], [place], [address] , [facility] - [facility] 4 14:39:29 Mixed conductiv e AND sensorine ural hearing loss 90725432 Active 2023 MARIS BUSCH [address] [place] [address], [place], [address] , [facility] 4 14:40:16 Conductiv e hearing loss of right ear 2364290388 Active 2023 DANNA CORNELL MD [address] [place] [address], [place], [address] , [facility] 4 15:07:10 Mixed conductiv e and sensorine ural hearing loss, bilateral 647087702 Active 2020 Mixed conductiv e and sensorine ural hearing loss, bilateral ; Note: Date Diagnosed : 01/06/2021 5:39 PM (H90.6) Not Available [facility] 4 02:13:36 Gastroeso phageal reflux disease without esophagit is 375995686 Active 2023 Gastro-es ophageal reflux disease without esophagit is; Note: Date Diagnosed : 03/24/2024 9:20 AM (K21.9) Not Available 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 Procedures Surgical History Date Name Laterality Status Provider Name and Address Organization Details Recorded Time 03/25/2024 Comp Audio with Tymps (12159 & 01940) completed YOLANDA HOUSER, [address], [address], [facility] - [facility] 03/25/2024 14:34:29 Imaging Results Imaging Date Name Status LastModified by Organiz ation Details LastModified Time 03/25/2024 audiogram [place] [id number] Information no t available 06/13/2024 12:49:51 01/06/2021 imaging/diagno stic result completed Information not available 06/25/2024 19:51:32 01/06/2021 imaging/diagno stic result completed Information not available 06/25/2024 19:51:35 03/25/2024 imaging/diagno stic result completed Information not available 06/25/2024 19:51:47 03/25/2024 imaging/diagno stic result completed Information not available 06/25/2024 19:51:50 07/10/2024 barium swallow study completed [facility] Imaging Dept [address] [place], [address], 08/10/2024 17:57:35 07/10/2024 chestxr completed [facility] (Central Scheduling Radiology) [address] [place], [address], 08/10/2024 17:57:35 Procedure Notes None recorded. Medical Equipment None Reported. Allergies Allergen ID Allergen Name Allergen Category Reaction Reaction Severity Criticality Documentation Date Start Date Code Code System Note Provider Name and Address Organization Details Recorded Time 342501 codeine medicatio n Not available Not available Not available 03/25/2024 2670 RxNorm Meenakshi batista [place] - [facility] 4 14:44:20 798049 Bactrim medicatio n Not available Not available Not available 03/25/2024 42570 9 RxNorm Meenakshi batista [place] [facility] 4 14:44:26 Medications Name Sig Start Date Stop Date Status Note LastModified by Organization Details LastModified Time amoxicillin 500 mg capsule TAKE 2 CAPSULE BY MOUTH 3 TIMES A DAY FOR 2 DAYS 03/25 completed Not Available Not Available Not Available metformin 500 mg tablet TAKE 1 TABLET BY MOUTH TWICE A DAY FOR 90 DAYS active Not Available Not Available No t Available terconazole 0.4 % vaginal cream INSERT 1 APPLICATO RFUL VAGINALLY AT BEDTIME FOR 7 NIGHTS 06/20 completed Not Available Not Available Not Available BD Alcohol Swabs USE 3 TIMES A DAY 06/20 completed Not Available Not Available Not Available pilocarpine 5 mg tablet TAKE 1 TABLET BY MOUTH 2 TIMES A DAY NEEDED. 03/25 completed Not Available Not Available Not Available carvedilol 25 mg tablet TAKE 1 TABLET BY MOUTH TWICE A DAY WITH FOOD FOR 30 DAYS active Not Available Not Available No t Available clonidine HCl 0.1 mg tablet TAKE 1 TABLET BY MOUTH TWICE A DAY FOR 30 DAYS active Not Available Not Available No t Available prednisone 10 mg tablet TAKE 3 TABLETS BY MOUTH EVERY DAY WITH FOOD FOR 3 DAYS 03/25 completed Not Available Not Available Not Available atorvastati n 20 mg tablet active Not Available Not Available Not Available albuterol sulfate 2.5 mg/3 mL (0.083 %) solution for nebulizatio n INHALE 1 AMP BY NEBULIZAT ION ROUTE 4 TIMES EVERY DAY active Not Available Not Available No t Available cetirizine 10 mg tablet TAKE 1 TABLET BY MOUTH EVERY DAY active Not Available Not Available No t Available atorvastati n 10 mg tablet TAKE 1 TABLET BY MOUTH EVERY DAY FOR 30 DAYS 08/04 completed Not Available Not Available Not Available spironolact one 25 mg-hydrochl orothiazide 25 mg tablet TAKE 1 TABLET BY MOUTH EVERY DAY 06/20 completed Not Available Not Available Not Available prednisone 20 mg tablet TAKE 2 TABLETS BY MOUTH EVERY DAY FOR 2 DAYS, TAKE 1 TABLET EVERY DAY FOR 2 DAYS THEN CONTINUE 10MG HOME DOSE 06/20 completed Not Available Not Available Not Available prednisone 5 mg tablet TAKE 2 TABLETS BY MOUTH DAILY WITH BREAKFAST . active Not Available Not Available No t Available hydrocortis one 2.5 % topical cream with perineal applicator APPLY A SMALL AMOUNT VIA APPLICATO R TWICE A DAY active Not Available Not Available No t Available magnesium oxide 400 mg (241.3 mg magnesium) tablet TAKE 1 TABLET BY MOUTH EVERY DAY active Not Available Not Available No t Available amlodipine 10 mg tablet TAKE 1 TABLET BY MOUTH EVERY DAY FOR 90 DAYS active Not Available Not Available No t Available doxycycline monohydrate 100 mg capsule 08/04 completed Not Available Not Available Not Available cephalexin 500 mg capsule TAKE 1 CAPSULE BY MOUTH EVERY 6 HOURS FOR 7 DAYS 03/25 completed Not Available Not Available Not Available omeprazole 20 mg capsule,del ayed release TAKE 1 CAPSULE BY MOUTH EVERY DAY active Not Available Not Available No t Available Banophen 25 mg capsule PLEASE SEE ATTACHED FOR DETAILED DIRECTION S 03/25 completed Not Available Not Available Not Available levothyroxi ne 200 mcg tablet TAKE 1 TABLET BY MOUTH EVERY DAY FOR 90 DAYS active Not Available Not Available No t Available cyanocobala min (vit B-12) 1,000 mcg sublingual tablet USE 1 TABLET UNDER THE TONGUE AND ALLOW TO DISSOLVE SUBLINGUA L ONCE A DAY 30 DAY(S) active Not Available Not Available No t Available hydrochloro thiazide 25 mg tablet TAKE 1 TABLET BY MOUTH EVERY DAY IN THE MORNING FOR 30 DAYS active Not Available Not Available No t Available metoprolol succinate ER 25 mg tablet,exte nded release 24 hr TAKE 1 TABLET BY MOUTH EVERY DAY 06/20 completed Not Available Not Available Not Available hydroxychlo roquine 200 mg tablet TAKE 2 TABLETS BY MOUTH DAILY FOR 90 DAYS active Not Available Not Available No t Available epinephrine 0.3 mg/0.3 mL injection, auto-inject or INJECT DIRECTED active Not Available Not Available No t Available methylpredn isolone 4 mg tablets in a dose pack TAKE 6 TABLETS ON DAY 1 DIRECTED ON PACKAGE AND DECREASE BY 1 TAB EACH DAY FOR A TOTAL OF 6 DAYS 03/25 completed Not Available Not Available Not Available albuterol sulfate HFA 90 mcg/actuati on aerosol inhaler TAKE 2 PUFFS BY MOUTH EVERY 4 TO 6 HOURS NEEDED active Not Available Not Available No t Available clobetasol 0.05 % scalp solution APPLY TO SCALP DAILY AT NIGHT AFTER SHOWER AND BEFORE BED active Not Available Not Available No t Available amoxicillin 875 mg-potassiu m clavulanate 125 mg tablet TAKE 1 TABLET BY MOUTH EVERY 12 HOURS FOR 5 DAYS 06/20 completed Not Available Not Available Not Available Klor-Con M20 mEq tablet,exte nded release TAKE 1 TABLET BY MOUTH EVERY DAY WITH FOOD FOR 30 DAYS active Not Available Not Available No t Available Symbicort 160 mcg-4.5 mcg/actuati on HFA aerosol inhaler TAKE 2 PUFFS BY MOUTH TWICE A DAY IN THE MORNING AND IN THE EVENING active Not Available Not Available No t Available diflupredna te 0.05 % eye drops PLACE 1 DROP IN RIGHT EYE TWICE DAILY AND IN LEFT EYE 4 TIMES DAILY 03/25 completed Not Available Not Available Not Available GaviLyte-G 236 gram-22.74 gram-6.74 gram-5.86 gram oral solution TAKE 8 OUNCE BY MOUTH DIRECTED FOLLOW INSTRUCTI ONS GIVEN BY PROVIDERS OFFICE 03/25 completed Not Available Not Available Not Available Spiriva Respimat 2.5 mcg/actuati on solution for inhalation INHALE 2 PUFF BY INHALATIO N ROUTE EVERY DAY AT THE SAME TIME EACH DAY active Not Available Not Available No t Available Vitals Date Recorded Body height Body mass index (BMI) Body weight Provider Name and Address Organization Details Last Updated DateTime 03/25/2024 162.56 cm 31.8 kg/m2 38706.59 g Meenakshi Jhaveri [place] - [facility] 03/25/2024 14:43:56 Date Recorded Body height Body mass index (BMI) Body weight Provider Name and Address Organization Details Last Updated DateTime 06/20/2024 162.56 cm 32.3 kg/m2 17743.37 bar Monik Oreilly [place] - [facility] 06/20/2024 13:23:30 Date Recorded Body height Body mass index (BMI) Body weight Provider Name and Address Organization Details Last Updated DateTime 08/04/2024 162.56 cm 33.6 kg/m2 68859.1 bar Monik Oreilly [place] - [facility] 08/04/2024 13:02:55 Social History None recorded. Functional Status None recorded. Mental Status None recorded. Family History Nothing Reported. Medical History Condition Response Hypertension Y Asthma Y GERD/Reflux Y High Cholesterol Y Gynecological HistoryNo gynecological history recorded. Obstetrics History GPAL:G 0 P 0 0 0 0 Past Encounters Encounter ID Performer Location Encounter Start Date Encounter Closed Date Diagnosis/Indication Diagnosis SNOMED-CT Code Diagnosis ICD10 Code Diagnosis Note [id number] DANNA CORNELL MD [facility] [address] [address] 03/25/2024 14:11:49 03/25/2024 15:14:22 Mixed conductive AND sensorineural hearing loss 62610080 H90.A32 Audiologic al evaluation results:Ri ght ear:{{Norm al auditory thresholds Normal sloping at Mild#} } {{ SNHL CH L* MHL }} with {{excellen t* good fa ir poor no t measurable }} speech discrimina tion.Left ear:{{Norm al auditory thresholds Normal sloping at Mild to severe#}} {{ SNHL CH L MHL* }} with {{excellen t* good fa ir poor no t measurable }} speech discrimina tion. Tympanomet ry:Right Ear:{{Type A* Type As Type Ad Type C Type C, shallow & rounded Ty pe B Type B with large volume Cou ld not maintain a hermetic seal}}Left Ear:{{Type A* Type As Type Ad Type C Type C, shallow & rounded Ty pe B Type B with large volume Cou ld not maintain a hermetic seal}} Nonobliter ative otosclerosis involving oval window 08868635 H80.03 Conductive hearing loss of right ear 9303303828 H90.A11 [id number] MAR[facility] BUSCH [place] [facility] [place] [facility] [place] [address] 06/13/2024 12:50:36 06/16/2024 07:14:39 Mixed conductive and sensorineural hearing loss, bilateral 655804040 H90.6 [id number] ANA BAILON MD [facility] [address] [facility] [address] 08/04/2024 12:44:18 08/04/2024 16:11:45 Dysphagia 52047673 R13.14 53-year-ol d female presents today for follow-up after a swallow study. This did show flash laryngeal penetratio n, no evidence of reflux. Overall results reassuring . She has also had endoscopy. I recommende d taking the omeprazole in the morning. I recommende d continuing salt water gargles, nasal rinses, and Zyrtec. She may follow-up as needed. Gastroesop hageal reflux disease without esophagitis 469945406 K21.9 Health Concerns Section Related Observation LastModified by Organization Detai ls LastModified Time None Recorded Concern Status LastModified by Organization Details LastModified Time None Recorded Advance Directives Directive None Recorded Payers Encounter Date Sequence Insurance Name Policy Number Policy Burger Covered Member ID Burger Member ID Guarantor Name 03/25/2024 1 [facility] [id number] Lani Colon Baptiste [id number] Lani Colon 06/13/2024 1 [facility] [id number] Lani Colon Baptiste [id number] Lani Colon 08/04/2024 1 [facility] [id number] Lani Colon Baptiste [id number] Lani Colon Notes Date Note Type Note Provider Name and Address Organization Details Recorded Time 03/25/2024 text/html 53-year-old fema maximo with history of otosclerosis. She's had bilateral stapes surgery in the past at an outside institution in 2008. I did a revision stapes surgery on the left with good postoperative hearing results. Last audiogram back in 2020 showed recurrence of left-sided conductive hearing loss, likely due to erosion of the incus. We discussed options of revision stapes surgery versus amplification, and the patient elected to continue with amplification back at [facility]. She comes back today for 3-year interval audiogram. Patient's current hearing aids are over 15 years old and she does not feel like they are working very well for her. DANNA CORNELL MD [address], [address], [place] - [facility] 03/25/2024 15:10:36 06/13/2024 text/html Pt is {{a an*}} {{new experienced*}} user of hearing aids. 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 She is interested in phonak due to the waterproof option. Type of phone: {{iphone android (galaxy) android (off brand) no smart phone did not ask. She was not to thrilled about the bluetooth option.#}} She is looking into [facility] and seeing which level of technology she is going to be able to get. Is hoping for the premium. Ordering: {{Oticon phonak* Widex} } {{ in chestnut brown#}}. Civil Engineering Drafter: {{ 1M#}} Domes: {{ closed small#}} Other: {{}} Paid today: {{}} Due at fitting {{}} Total: {{}} MARIS BUSCH [address] [facility] [address], [place], [address], [facility] - [facility] 06/13/2024 13:19:36 08/04/2024 text/html Continues omepra zole once a day. Taking at night. Still some HB symptoms. BaS no reflux. Flash laryngeal penetration. PV: 53 year old presents for solid dysphagia and globus for 3 months. Sometimes coughs after eating as well. No issues with liquids.Has multiple medical problems including SLE, hypothyroidism and reflux. Takes 20mg omeprazole BID for reflux. 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 Most recent EGD and colonoscopy in October was overall normal perpatient report, 1 colon polyp was removed.Did have pneumonia last fall. Has not had recent swallow study. ANA BAILON MD [address] [place] [address], [place], [address], [place] - [facility] 08/06/2024 08:57:30 OBGyn Episode No OBEpisode recorded.
== END 2024-12-24 10:58 | disposition home or self-care (01) ==
PROVIDERS: PCP Internal Medicine; Visit Provider Internal Medicine Hypertension Specialist
DX: M32.9 Systemic lupus erythematosus, unspecified (principal); I12.9 Hypertensive chronic kidney disease with stage 1 through stage 4 chronic kidney disease, or unspecified chronic kidney disease; N18.9 Chronic kidney disease, unspecified; R80.9 Proteinuria, unspecified
CPT/HCPCS: 99214

== ENCOUNTER 2025-06-03 10:59 | Outpatient (REF) | payer OTHER, SELFPAY ==
--- OUTSIDE RECORDS SUMMARY | 2025-06-03 12:07 | XMS_ITS | Clinical Summary ---
Author Organization [facility] Address [address] [address] Phone Care Team Providers Care Palm And Back Forger Name Role Phone Jamir Rubi MD Primary Care Provider Allergies Active Allergy Reactions Criticality Noted Date Comments Acetaminophen-Codeine 01/20/2021 Adalimumab 01/17/2024 Sulfamethoxazole-Trimethoprim 2022 Codeine Nausea and/or Vomiting 01/20/2021 Azathioprine 10/09/2023 Losartan 01/17/2024 Menthol 12/11/2023 Acetaminophen Nausea and/or Vomiting 10/09/2023 Valsartan Anaphylaxis High 10/09/2023 Medications omeprazole (PRILOSEC) 20 MG capsule Take 1 capsule by mouth every morning. 07/08/20 23 Active hydroxychloroquine (PLAQUENIL) 200 mg tablet TAKE 2 TABLETS BY MOUTH DAILY FOR 90 DAYS 09/14/20 23 Active clobetasol (TEMOVATE) 0.05 % external solution as needed. 09/13/20 23 Active cetirizine (ZYRTEC) 10 MG tablet Take 1 tablet by mouth every morning. 07/25/20 23 Active SYMBICORT 160-4.5 mcg/actuation inhaler 23 Active aspirin 81 MG EC tablet Take 1 tablet by mouth. Active MAGNESIUM OXIDE ORAL Take 400 mg by mouth. 05/30/20 23 Active levothyroxine (SYNTHROID, LEVOTHROID) 200 MCG tablet Take 200 mcg by mouth daily. Active lidocaine (LIDODERM) 5 % as needed. Active albuterol sulfate (PROAIR RESPICLICK) 90 mcg/actuation AePB as needed. Active albuterol 2.5 mg /3 mL (0.083 %) nebulizer solution Inhale 2.5 mg into the lungs as needed. 09/27/20 23 Active metFORMIN (GLUCOPHAGE) 500 MG tablet Take by mouth. 2 in the morning 1 at night 05/25/20 22 Active amLODIPine (NORVASC) 10 MG tablet Take 10 mg by mouth. 10/05/20 22 Active mycophenolate mofetil (CELLCEPT) 500 mg tablet Take 1 tablet by mouth. Active diphenhydrAMINE (BANOPHEN) 25 mg capsule Take 25 mg by mouth. 10/05/20 Active cholecalciferol, vitamin D3, 25 mcg (1,000 unit) capsule Take 2 capsules by mouth 2 (two) times a day. Active desonide (DESOWEN) 0.05 % ointment Apply topically 2 (two) times a day. Active mupirocin (BACTROBAN) 2 % ointment Apply topically 3 (three) times a day. Active pilocarpine (SALAGEN) 5 MG tabletIndications:Sjogr en's syndrome with keratoconjunctivitis sicca Take 1 tablet (5 mg total) by mouth 2 (two) times a day as needed. 60 tablet 4 10/09/20 23 Active atorvastatin (LIPITOR) 10 MG tablet Take 20 mg by mouth every morning. 12/25/19 24 Active cyanocobalamin, vitamin B-12, 500 MCG tablet Take 1,000 mcg by mouth. Active cyclobenzaprine (FLEXERIL) 10 MG tablet Take 10 mg by mouth. Active EPINEPHrine 0.3 mg/0.3 mL auto-injector Inject 0.3 mg into the muscle as needed. 10/23/20 23 Active hydroCHLOROthiazide (HYDRODIURIL) 25 MG tablet Take 25 mg by mouth daily. 12/25/19 24 Active SPIRIVA RESPIMAT 2.5 mcg/actuation mist for inhalation Inhale 2 puffs into the lungs. 12/20/19 24 Active valACYclovir (VALTREX) 1000 MG tablet Take 1,000 mg by mouth. Active zinc sulfate (ZINCATE) 50 mg zinc (220 mg) capsule Take 1 capsule by mouth daily. Active traMADoL (ULTRAM) 50 mg tablet Take 50 mg by mouth as needed for pain (specific location in comments). Active CALCIUM ORAL Take by mouth daily. Active VITAMIN A ORAL Take by mouth daily. Active acetaminophen (TYLENOL) 500 MG tablet Take 500 mg by mouth every 6 (six) hours as needed for pain (specific location in comments). Active carvedilol (COREG) 25 MG tablet Take 25 mg by mouth 2 (two) times a day with meals. Active cloNIDine HCL (CATAPRES) 0.1 MG tablet Take 0.1 mg by mouth 2 (two) times a day. 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 90 tablet 1 04/09/20 25 Active gabapentin (NEURONTIN) 300 MG capsuleIndications:Neur opathic pain TAKE 1 CAPSULE BY MOUTH NIGHTLY AT BEDTIME. 90 capsule 1 05/04/20 25 Active Active Problems Problem Noted Date Diagnosed Date Rotator cuff tendinitis, right 03/24/2025 Right groin pain 03/24/2025 Bilateral low back pain with right-sided sciatic a 03/24/2025 Assessment & Plan (03/24/2025 5:36 PM EDT): Baseline plain films today. Current pattern and distribution of neuropathic pain involving bilateral toes and low back and groin pain favors lumbar spine origin rather than directly secondary to systemic lupus. She is amenable to trial of gabapentin, low-dose 300 mg nightly to start. Can uptitrate pending efficacy and tolerability. 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 On mycophenolate mofetil therapy 12/23/2024 Overview (12/23/2024): Outside labs 08/2024 quant TB neg HBsAg neg HCV Ab neg Systemic lupus erythematosus 10/09/2023 Overview (03/24/2025): SLE / LN class II No belimumab hx Assessment & Plan (03/24/2025 5:35 PM EDT): She is compliant with low-dose mycophenolate plus hydroxychloroquine. I have reviewed most recent labs available from [facility] hospitalization for asthma exacerbation earlier this month, which was complicated by GI bleed requiring transfusion of 1 unit PRBCs. I am not convinced that her current symptoms are secondary to active systemic lupus. I have requested add on of dsDNA and sed rate to this morning's labs. Potential benefit of increased mycophenolate dose pending clinical course and review of this morning's labs. Assessment & Plan (12/23/2024 6:10 AM EST): Hospitalized 10/2024 for SLE flare per patient though [facility] discharge summary is not available for my review during today's visit. I suspect that recent increase in pain in generalized pain is a consequence of completing the recently rx'd prednisone taper rather than persistence or recurrence of active SLE; there is no physical exam evidence concerning for active SLE today. Will obtain updated labs; prefer to avoid repeat prednisone taper w/o serologic e/o active SLE. She will continue current regimen of hydroxychloroquine and mycophenolate pending lab review. 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 Continue with CellCept 1 tablet daily, Plaquenil and prednisone 10 mg each morning. She has no active SLE symptoms. She does not require labs today. Assessment & Plan (02/19/2024 4:58 PM EDT): SLE with class II nephritis and stable renal function. She has no active symptoms currently. Continue with CellCept 1 tablet daily Plaquenil 2 tabs daily. Increase prednisone to 10 mg for 1 month and then decrease dose down to 7.5 mg until next appointment. She does not need labs today. Assessment & Plan (11/05/2023 6:33 PM EST): 2 lupus nephritis well-controlled on CellCept 1 tablet, Plaquenil and prednisone. She will slowly wean down on her prednisone dose. She has developed cushingoid features since she has been on 20 mg for so long. She has no active symptoms suggestive of active lupus. Prolonged sun exposure to prevent the development of discoid skin lesions which she has had in the past. Sjogren's syndrome with keratoconjunctivitis sic ca 10/09/2023 Assessment & Plan (07/01/2024 10:08 AM EDT): Sjogren's syndrome with continued sicca symptoms. Continue with pilocarpine as needed. Assessment & Plan (02/19/2024 4:57 PM EDT): Sjogren syndrome with stable sicca complaints on pilocarpine 2 times daily. Assessment & Plan (11/05/2023 6:33 PM EST): Stable Sjogren syndrome with stable sicca symptoms. She uses rewetting eyedrops and Biotene as needed. Primary osteoarthritis involving multiple joints 10/09/2023 Assessment & Plan (07/01/2024 10:08 AM EDT): Osteoarthritis of multiple joints most bothersome in her lower back hips and knees. She can continue with Tylenol 650 mg as needed. Assessment & Plan (02/19/2024 4:55 PM EDT): Osteoarthritis in multiple joints with some stiffness but no swelling. Assessment & Plan (11/05/2023 6:34 PM EST): Osteoarthritis in multiple joints with some stiffness but no swelling. She can take Tylenol 650 mg as needed. Encounters Date Type Department Care Team Description 05/09/2025 Telephone [facility] Rheumatology [address] [place] [address] [place] [address] Mylene Quintanilla MD 05/03/2025 Refill [facility] Rheumatology [address] [place] [address] [place] [address] Aurelia Mondragon MD, MPH Medication Refill 04/13/2025 Orders Only [facility] Info [facility] Virtual Department [address] [place] [id number] Ariel Arboleda MD 04/09/2025 Refill [facility] Rheumatology [address] [place] [address] [place] [address] Aurelia Mondragon MD, MPH Med Change Request 04/07/[address] [place] [address] Raulito Kwok MD Medication Refill 03/27/2025 Orders Only [address] [place] [address] Aurelia Mondragon MD, MPH 03/24/2025 10:33 AM EDT - 03/24/2025 11:59 PM EDT Hospital Encounter [facility], X-Ray - [address] [place] [address] Aurelia Mondragon MD, MPH Discharge Disposition: Home or Self Care 03/24/2025 10:33 AM EDT - 03/24/2025 11:59 PM EDT Hospital Encounter [facility] X-Ray - [address] [place] [address] Aurelia Mondragon MD, MPH Discharge Disposition: Home or Self Care 03/24/2025 9:40 AM EDT Office Visit [address] [place] [address] Aurelia Mondragon MD, MPH Neuropathic pain (Primary Dx); Bilateral low back pain with right-sided sciatica, unspecified chronicity; Right groin pain; Acute bursitis of right shoulder; Systemic lupus erythematosus, unspecified SLE type, unspecified organ involvement status; Rotator cuff tendinitis, right 03/24/2025 Telephone [facility] Rheumatology [address] [place] [address] [place] [address] Aurelia Mondragon MD, MPH Labs 03/13/2025 Orders Only [facility] Health Info Management Virtual Department [address] [place] [address] ProviderAriel MD from Last 3 Months Family History Medical History Relation Comments Diabetes Father Hypertension Father Arthritis Mother Diabetes Mother Relation Status Comments Father Alive Mother Alive Social History Tobacco Use Types Packs/Day Years Used Date Smoking Tobacco: Never Smokeless Tobacco: Never Tobacco Cessation:Counseling Given: Not Answered Alcohol Use Standard Drinks/Week Comments Not Currently 0 (1 standard drink = 0.6 oz pur e alcohol) rarely Education Answer Date Recorded Are you interested in more education? Not on manoj e 06/19/2023 Are you concerned about learning? Not on file 06/19/2023 No 06/19/2023 No 06/19/2023 Digital Access Answer Date Recorded No 06/19/2023 No 06/19/2023 Reliable internet access at home? Not on file 06/19/2023 Device with a working camera? Not on file Comments Unknown Sex and Gender Information Value Date Recorded Sex Assigned at Not on file Legal Sex Female 11:01 AM EDT Gender Identity Not on file Sexual Orientation Not on file Last Filed Vital Signs Vital Sign Reading Time Taken Comments Blood Pressure 170/98 03/24/2025 9:36 AM EDT Pulse 99 03/24/2025 9:36 AM EDT Temperature - - Respiratory Rate - - Oxygen Saturation 99% 03/24/2025 9:36 AM EDT Inhaled Oxygen Concentration - - Weight 93.9 kg (207 lb) 03/24/2025 9:36 AM EDT Height 162.6 cm (5' 4.02 ) 11/18/2024 10:[address] Body Mass Index 35.51 11/18/2024 10:46 AM EST Plan of Treatment Upcoming Encounters Date Type Department Care Team (Late st Contact Info) Description 07/30/2025 11:40 AM EDT Office Visit [facility] Rheumatology [address] [place] [address] [place] [address] Aurelia Mondragon MD, MPH [address] [place] [address], [address] [place] [address] [email or web address] Health Maintenance Due Date Last Done Comments LIPID PANEL 1972 TSH LEVEL 1972 DEPRESSION SCREENING 1984 HEPATITIS C SCREENING 1990 HIV ONE-TIME SCREENING (18-65 YEARS) 1990 PNEUMOCOCCAL VACCINES (50+ years) (1 of 2 - PCV) 1991 ZOSTER VACCINES (1 of 2) 1991 PAP SMEAR 1993 MAMMOGRAM 2012 COLOGUARD 2017 COLONOSCOPY 2017 COLORECTAL CANCER SCREENING 2017 FIT TEST 2017 FOBT 2017 SIGMOIDOSCOPY 2017 VIRTUAL COLONOSCOPY 2017 COVID-19 VACCINE ( season) 2024 12/06/2022, 09/30/2021, 02/12/2021, Additional history exists CREATININE LEVEL 11/18/2025 11/18/2024, , 09/10/2024, Additional history exists POTASSIUM LEVEL 11/18/2025 11/18/2024, 10/05, 09/10/2024, Additional history exists SCREENING FOR DIABETES 09/10/2027 09/10/2024 Adult Td,Tdap Booster 02/06/2034 02/07/2024, 023 SMOKING STATUS SCREENING (Once After 26 Yrs) Completed 03/24/2025 HEPATITIS A VACCINES Aged Out No long er eligible based on patient's age to complete this topic HIB VACCINES Aged Out No longer eligi ble based on patient's age to complete this topic MENINGOCOCCAL VACCINES (ACWY) Aged Out No longer eligible based on patient's age to complete this topic MENINGOCOCCAL VACCINES (B) Aged Out N o longer eligible based on patient's age to complete this topic Medical Devices Not on file Procedures Procedure Name Priority Date/Time Associated Diagnosis Comments OUTSIDE LAB 04/03/2025 XR LUMBOSACRAL SPINE 2-3 VIEWS Routine 03/24/2025 11:14 AM EDT Bilateral low back pain with right-sided sciatica, unspecified chronicity Right groin pain XR HIPS 2+ VW EA BILAT PLUS PELVIS Routine 03/24/2025 11:14 AM EDT Bilateral low back pain with right-sided sciatica, unspecified chronicity Right groin pain DOUBLE STRANDED DNA ANTIBODIES Routine 03/24/2025 9:55 AM EDT OUTSIDE IMAGING Routine 03/06/2025 2:01 PM EDT COMPREHENSIVE METABOLIC PANEL Routine 11/18/2024 12:09 PM EST Systemic lupus erythematosus, unspecified SLE type, unspecified organ involvement status On mycophenolate mofetil therapy from Last 3 Months or Most Recently Relevant to Health Maintenance Results * Outside Lab (04/03/2025) us Scanning Interface Provider LAB BLOOD ORDERABLES Final Result * XR LUMBOSACRAL SPINE 2-3 VIEWS (03/24/2025 11:14 AM EDT) Anatomical Region Laterality Modality L-spine Computed Radiogr aphy 03/24/2025 3:20 PM EDT Impressions 03/24/2025 3:22 PM EDT No evidence of acute fracture or malalignment. Mild lower lumbar facet arthropathy Narrative 03/24/2025 3:22 PM EDT XR LUMBOSACRAL SPINE 2-3 VIEWS 03/24/2025 10:58 AM Referring clinician's provided indication for this examination in Epic: Pain COMPARISON: None FINDINGS: There is no evidence of acute fracture or malalignment. There is minimal anterior degenerative endplate marginal osteophytosis. The disc space heights are preserved. There is mild degenerative change of the lower lumbar facet joints. The sacroiliac joints are congruent. There is an IUD projecting over the pelvis. Procedure Note Aruna Padilla MD - 03/24/2025 XR LUMBOSACRAL SPINE 2-3 VIEWS 03/24/2025 10:58 AM Referring clinician's provided indication for this examination in Epic:Pain COMPARISON: None FINDINGS: There is no evidence of acute fracture or malalignment. There is minimalanterior degenerative endplate marginal osteophytosis. The disc spaceheights are preserved. There is mild degenerative change of the lowerlumbar facet joints. The sacroiliac joints are congruent. There is an IUDprojecting over the pelvis. IMPRESSION: No evidence of acute fracture or malalignment. Mild lower lumbar facetarthropathy us Aurelia Mondragon MD, MPH IMG XR SPINE Final Re sult * XR HIPS 2+ VW EA BILAT PLUS PELVIS (03/24/2025 11:14 AM EDT) Anatomical Region Laterality Modality Hip, Pelvis Computed Radiogr aphy 03/24/2025 3:11 PM EDT Impressions 03/24/2025 3:15 PM EDT FINDINGS/IMPRESSION: There is no evidence of acute fracture, subluxation, or dislocation. The hip joint space is preserved. There is focal subchondral cystic change of the superior lateral acetabulum on the right. There is osteophytosis of the superior lateral acetabulum on the left. The sacroiliac joints and symphysis pubis are congruent. There is incompletely evaluated degenerative change of the lower lumbar spine. There is an IUD projecting over the pelvis. Narrative 03/24/2025 3:15 PM EDT XR HIPS 2+ VW EA BILAT PLUS PELVIS 03/24/2025 10:58 AM Referring clinician's provided indication for this examination in [facility]: Pain COMPARISON: None Procedure Note Aruna Padilla MD - 03/24/2025 XR HIPS 2+ VW EA BILAT PLUS PELVIS 03/24/2025 10:58 AM Referring clinician's provided indication for this examination in [facility]:Pain COMPARISON: None IMPRESSION: FINDINGS/IMPRESSION: There is no evidence of acute fracture, subluxation, or dislocation. Thehip joint space is preserved. There is focal subchondral cystic change ofthe superior lateral acetabulum on the right. There is osteophytosis ofthe superior lateral acetabulum on the left. The sacroiliac joints andsymphysis pubis are congruent. There is incompletely evaluateddegenerative change of the lower lumbar spine. There is an IUD projectingover the pelvis. us Aurelia Mondragon MD, MPH IMG XR PELVIS Final Re sult * (ABNORMAL) Double stranded DNA antibodies (03/24/2025 9:55 AM EDT) us Aurelia Mondragon MD, MPH LAB BLOOD ORDERABLES Fin al Result EXTERNAL NON-INTERFACED REF LAB * Outside Imaging Report Only (03/06/2025 2:01 PM EDT) Historical Provider IMGideon XR CHEST Final Res ult * (ABNORMAL) Comprehensive metabolic panel (11/18/2024 12:09 PM EST) SODIUM 140 133 - 146 mmol/L [facility] POTASSIUM 3.8 3.3 - 5.1 mmol/L [facility] CHLORIDE 101 96 - 108 mmol/L [facility] CO2 29 21 - 35 mmol/L [facility] BUN 18 6 - 19 mg/dL [facility] CREATININE 0.70 0.5 - 1.5 mg/dL [facility] GLUCOSE 179(H) 70 - 99 mg/dL [facility] ALBUMIN 3.8(L) 3.9 - 4.8 g/dL [facility] TOTAL PROTEIN 8.4(H) 6.5 - 8.0 g/dL [facility] CALCIUM 9.2 8.4 - 10.3 mg/dL [facility] ALKALINE PHOSPHATASE 98 39 - 117 U/L [facility] TOTAL BILIRUBIN 0.3 0.0 - 1.2 mg/dL [facility] AST 39(H) 0 - 37 U/L [facility] ALT 44(H) 0 - 40 U/L [facility] GLOBULIN 4.6 1 - 4.8 g/dL [facility] EGFR 104 >59 mL/min/1.7 3m2 [facility] Comment:Estimated glomerular filtration rate calculated using the CKD-EPI refit equation. ANION GAP 14 10 - 20 mmol/L [facility] Blood 11/18/2024 12:0 9 PM EST 11/18/2024 12:12 PM EST Aurelia Mondragon MD, MPH LAB BLOOD ORDERABLES Fin al Result Performing Organization Address City/[facility]/ZIP Co de Phone Number [facility] [address] [place] [address] from Last 3 Months or Most Recently Relevant to Health Maintenance [facility] [address] [place] [address]O [facility] [employer] Care Teams Palm And Back Forger Relationship Specialty Start Date End Date Jamir Rubi MD [address] [place] [address] PCP - General Internal Medicine 06/19/23 Additional Source Comments The information contained in this document represents components of the legal health record. It is not the complete legal health record.[facility]
--- OUTSIDE RECORDS SUMMARY | 2025-06-03 12:07 | XMS_ITS | Clinical Summary ---
Author Organization [facility] Address [address] [place] [address] Care Team Providers Care Patient Transition Specialist Name Role Phone Jamir Rubi MD Primary Care Provider + [phone] Allergies Active Allergy Reactions Criticality Noted Date [...] as needed for wheezing. 0 Active Umeclidinium [place] (Incruse Ellipta) 62.5 MCG/ACT AEPB Inhale into [...] daily. 0 Active vitamin A 3 MG (12286 UT) CAPS capsule Take 1 capsule (3 mg total) by mouth daily. 0 Active Turmeric-Angie 150-25 MG CHEW Chew by mouth. 0 Active Calcium Carbonate-Vit D-Min (GNP Calcium Plus 600 +D) 600-200 MG-UNIT TABS Take by mouth. 0 Active vitamin D3 (cholecalciferol) 25 MCG (1000 UT) tablet Take 1 tablet (25 mcg total) by mouth daily. 0 Active aspirin-sod bicarb-citric acid (Heather-Somers) 325 MG TBEF Take 325 mg by [...] on an empty stomach. 0 Active Tiotropium [place] Monohydrate (Spiriva Respimat) 2.5 MCG/ACT AERS Inhale [...] 74 07/29/2024 1:08 PM EDT Temperature 36.2 C (97.2 F) 07/29/2024 1:08 PM EDT Respiratory Rate 18 06/04/2024 1:39 PM EDT [...] 2024 09/30/2021, 02/12/2021, 01/22/2021 Influenza Vaccine (#1) 2025 3, 10/10/2016 RSV Ped < 20 months Aged Out No longe r eligible based on patient's age to complete this topic Care Teams Patient Transition Specialist Relationship Specialty Start Date End Date Jamir Rubi MD [address] [address] PCP - General Internal Medicine 11/22/23
--- OUTSIDE RECORDS SUMMARY | 2025-06-03 12:07 | XMS_ITS | Encounter Summary ---
Author Organization [facility] Address [address] [place] [address] Care Team Providers Care Sole Leveling Machine Operator Name Role Phone Jamir Rubi MD Primary Care Provider Encounter Details Date Type Department Care Team (Late Contact Info) Description 11/03/[address] [facility] - Main Lab [address] [facility] [place] [address] Anthony Olmstead MD [address] [place] [phone] Mild cervical dysplasia Social History Tobacco [...] Department Care Team (Late Contact Info) Description 06/03/2025 2:40 PM EDT Office Visit Gastroenterology - [address] [facility] [address] [place] [phone] José Miguel Zhou MD [address] [address] 06/05/2025 11:00 AM EDT Office Visit [facility] Hematology Oncology [address] [place] [phone] Virginia Andrea MD [address] [place] [address] 06/26/2025 10:00 AM EDT Office Visit Gastroenterology - 299 [facility] [address] [phone] Matteo Carpenter PA [address] [address] 07/22/2025 1:00 PM EDT Office Visit Pulmonolgy - [place] [address] [phone] Jeramie Posada MD [address] [address] documented as of this encounter Procedures Procedure Name Priority Date/Time Associated Diagnosis Comments TISSUE EXAM Routine 10/31/2024 Mild cervical dysplasia documented in this encounter Results * Tissue Exam (10/31/2024) Final Diagnosis Endocervical curettings: Chronic endocervicitis Benign squamous epithelium No squamous intraepithelial lesion or glandular neoplasm identified 11/04/2024 9:35 AM [facility]) [facility] Clinical Information 05/2024 LSIL/JUAN PABLO 1 - ECC 11/04/2024 9:35 AM [facility]) [facility] Gross Description A. Endocervix, ECC: Labeled with the patient's name and information. Received in formalin is a 0.2 cm aggregate of minute garcia-pink possible soft tissue fragments which is submitted in toto in a mesh bag in one cassette, multiple pieces, x 2. JOEY 11/04/2024 9:35 AM EST [facility] Disclaimer Unless otherwise specified, all tissue is 10% NB formalin fixed and paraffin embedded. 11/04/2024 9:35 AM EST [facility] Tissue Endocervical structure / Unknown 10/31/2024 11/03/2024 9:39 AM EST us Anthony Olmstead MD LAB PATHOLOGY ORDERABLES Final R esult [facility]) [facility] [address] [place] [address], documented in this encounter Visit Diagnoses Diagnosis Mild cervical dysplasia Mild dysplasia of cervix documented in this encounter Care Teams Sole Leveling Machine Operator Relationship Specialty Start Date End Date Jamir Rubi MD [address] [place] [address] PCP - General Internal Medicine 11/25/24 documented as of this encounter
--- OUTSIDE RECORDS SUMMARY | 2025-06-03 12:07 | XMS_ITS | Clinical Summary ---
Author Organization [facility] Address [address] [place] [address] Phone Care Team Providers Care Supervisor Finishing Department Name Role Phone Jamir Rubi MD Primary Care Provider Allergies Active Allergy Reactions Criticality Noted Date Comments Acetaminophen-Codeine 01/20/2021 Codeine Other (see comments) 01/20/2021 Sulfamethoxazole-Trimethoprim Other (see comments) 01/20/2021 Medications fluticasone-salm eterol (ADVAIR DISKUS) 100-50 MCG/DOSE diskus inhaler Advair Diskus 100 mcg-50 mcg/dose powder for inhalation Active Cobalamin Combinations (Vitamin B79-Rvrgu Acid) 500-400 MCG tablet Take 1 tablet by mouth 1 (one) time each day Active Albuterol Sulfate (ProAir RespiClick) 108 (90 Base) MCG/ACT aerosol powder Active Vitamin A 3 MG (61828 UT) capsule Take 1 capsule by mouth [...] both feet 07/25/2017 Plantar fasciitis 07/25/2017 Immunizations Immunization Administration Dates Next Due Influenza, Quadrivalent, With [...] Last Done Comments Breast Cancer Screening 1970 Hepatitis B Vaccine (1 of 3 - 19+ 3-dose series) 10/18 Pneumococcal Vaccine: 50+ Years (1 of 2 - PCV) 991 Colorectal Cancer Screening: Annual FOBT 2021 Colorectal Cancer Screening: Colonoscopy 2021 Colorectal Cancer Screening: Sigmoidoscopy 2021 Influenza Vaccine (#1) 2025 10/10/2016 Insurance [facility] Care Teams Supervisor Finishing Department Relationship Specialty Start Date End Date Jamir Rubi MD [address] [place] [address] PCP - General 11/15/20
[2025-06-03 17:57] LABS: Appearance Urine Clear; Glucose Urine UA Negative (Negative); PH 7.0 (5.0-9.0); Specific Gravity - Urine 1.015 (1.005-1.025); UMIC TRIGGER UA YES
[2025-06-03 18:25] LABS: Anion Gap 11 (12-20); Blood Urea Nitrogen 24 mg/dL (9-16); Calcium 8.3 mg/dL (8.4-10.2); Carbon Dioxide 28 mmol/L (22-29); Chloride 104 mmol/L (96-108); Estimated Glomerular Filt Rate > 60; Potassium 4.3 mmol/L (3.3-5.1); Sodium 139 mmol/L (135-145)
[2025-06-03 18:40] LABS: Total Protein Urine Random 48 mg/dL (<12)
== END 2025-06-03 11:00 | disposition home or self-care (01) ==
LOC: HO.HKASLDS 10:59
PROVIDERS: Visit Provider Internal Medicine Hypertension Specialist
DX: I12.9 Hypertensive chronic kidney disease with stage 1 through stage 4 chronic kidney disease, or unspecified chronic kidney disease (principal); N18.9 Chronic kidney disease, unspecified; M32.9 Systemic lupus erythematosus, unspecified
CPT/HCPCS: 36415; 80048; 81001; 82570; 84156

== ENCOUNTER 2025-06-24 09:37 | Outpatient (AMB) | payer OTHER, SELFPAY ==
[2025-06-24 09:48] VITALS: BP 140/80; PULSE 98; O2SAT 99; BMI 36.9
--- NOTE | 2025-06-24 09:48 | HO.NEPHOV_ITS ---
Vital Signs 06/24/25 09:48 Height 5 ft 4 in Weight 215 lb BMI 36.9 BP 140/80 H Blood Pressure Location Lt brachial Position Sitting Pulse 98 Pulse Source Pulse Oximeter Pulse Oximetry (%) 99 Oxygen Delivery Method Room Air Intake Visit Reasons: 5mnth follow up/ Conf Ornamental Metalwork Designer Required: No Accompanied by: Self / Same As Patient Allergies acetaminophen Allergy (Mild, Verified 06/24/25 09:49) Unknown codeine Allergy (Mild, Verified 06/24/25 09:49) Unknown sulfamethoxazole (From Sulfamethoxazole-Trimethoprim) Allergy (Mild, Verified 06/24/25 09:49) Unknown trimethoprim (From Sulfamethoxazole-Trimethoprim) Allergy (Mild, Verified 06/24/25 09:49) Unknown Medication List - Last Reconciled 06/24/25 by James Lee MD albuterol sulfate 90 mcg/actuation inhalation amlodipine 10 mg PO DAILY aspirin 81 mg PO DAILY atorvastatin 20 mg PO DAILY budesonide-formoterol 160-4.5 mcg/actuation (Symbicort) inhalation carvedilol 25 mg PO BID cetirizine 10 mg PO DAILY clonidine HCl 0.2 mg PO DAILY cyanocobalamin (vitamin B-12) 1,000 mcg sublingual DAILY cyclobenzaprine 10 mg PO BEDTIME PRN doxycycline monohydrate 100 mg PO DAILY PRN hydrochlorothiazide 25 mg PO DAILY hydroxychloroquine 200 mg PO BID levothyroxine 200 mcg PO DAILY magnesium oxide 400 mg PO DAILY metformin 500 mg PO TID methylprednisolone 4 mg PO PRN mycophenolate mofetil (CellCept) 500 mg PO ONCE omeprazole 20 mg PO DAILY prednisone 10 mg PO DAILY tiotropium bromide 2.5 mcg/actuation (Spiriva Respimat) 2 puffs inhalation DAILY HPI Comments Details: Kimmy is a middle aged woman with SLE Recently hospitalized Currently on tapering dose of Prednisone; BP is well controlled ; Off Spironolatone Metoprolol has been added 05/28/24 DEveloped anemia; Had rectal bleed- s/p colonoscopy; s/p transfusion ;Following with Dr. Andrea 12/24/24 ;Doing better. No new issues today. 06/24/25 The patient is a 54-year-old female presenting with anemia and lupus. 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 No current iron supplements; received IV iron twice last year. Kidney function stable; anemia persists. Shortness of breath on exertion, relieved by rest. Lupus managed with hydroxychloroquine and prednisone. Lupus symptoms, including rash and joint pain, are controlled. Rheumatology follow-up scheduled for October. MEDICAL HISTORY: - Lupus - Anemia MEDICATIONS: - Hydroxychloroquine for lupus - Prednisone 10 mg for lupus - Tylenol for pain management - Gabapentin for pain management SOCIAL HISTORY: - Currently on vacation, resting well. - Avoids high sodium foods, prefers low sodium options. PFSH Family History Mother Diabetes Father Diabetes Hypertension Social History Patient Tobacco Use Status: Never used Tobacco Physical Exam Vital Signs: Last Vital Signs Pulse 98 06/24/25 09:48 BP 140/80 H 06/24/25 09:48 Pulse Ox 99 06/24/25 09:48 Oxygen Delivery Method Room Air 06/24/25 09:48 BMI result Body Mass Index 36.9 Const General: comfortable; No acute distress Orientation/consciousness: patient oriented x3 Eyes General: appearance normal, both eyes and all related structures Visual Hercules: normal visual hercules by confrontation Neck Neck: Yes supple and Yes no JVD Resp Effort & Inspection: normal respiratory effort and respiratory effort not decreased Auscultation: rhonchi Cardio Palpation: no palpable S3 and no palpable S4 Heart sounds: no rubs GI Inspection: Yes normal to inspection Palpation (GI): Soft to palpation Percussion: Yes normal to percussion Auscultation: normal bowel sounds General: Yes no CVA tenderness Back/Spine/Pelvis Back: no CVA tenderness Skin General skin exam: no petechiae and no purpura Neuro General: patient oriented x3 and no focal motor deficits Extrem General: No clubbing and No edema Results Reviewed Nephrology Results: Sodium, (135-145) 139 mmol/L 06/03/25 Potassium, (3.3-5.1) 4.3 mmol/L 06/03/25 Chloride, (96-108) 104 mmol/L 06/03/25 Carbon Dioxide, (22-29) 28 mmol/L 06/03/25 BUN, (9-16) 24 mg/dL H 06/03/25 Creatinine, (0.5-1.4) 0.84 mg/dL 06/03/25 Calcium, (8.4-10.2) 8.3 mg/dL L 06/03/25 Urine Protein, (Neg-Trace) 100 (2+) mg/dL H 06/03/25 Urine Creatinine 55.40 mg/dL 06/03/25 Assessment & Plan Assessment & Plan (1) SLE (systemic lupus erythematosus related syndrome): Code(s): M32.9 - Systemic lupus erythematosus, unspecified Category: Medical (2) CKD (chronic kidney disease): Code(s): N18.9 - Chronic kidney disease, unspecified Category: Medical (3) HTN (hypertension): Code(s): I10 - Essential (primary) hypertension Category: Medical (4) Albuminuria: Code(s): R80.9 - Proteinuria, unspecified Category: Medical Plan 54-year-old woman with a history of lupus nephritis and hypertension. At present renal function stable at baseline. We will continue to monitor urinary protein excretion. Blood pressure is better controlled Now on Amlodipine/Coreg/HCTZ ; No changes were made to her antihypertensive medications. SLE. Currently being managed by a export freight specialist and she is on mycophenolate. Hydroxychloroquine and prednisone. Anemia secondary to blood loss. h/o Hemorrhoids; s/p Transfusion ; Work up in progress Follow with Orders: Orders UA and rflx microscopic 6 Months I10 - Essential (primary) hypertension, N18.9 - Chronic kidney disease, unspecified, R80.9 - Proteinuria, unspecified Basic Metabolic Panel 6 Months I10 - Essential (primary) hypertension, N18.9 - Chronic kidney disease, unspecified, R80.9 - Proteinuria, unspecified Complete Blood Count no Diff 6 Months I10 - Essential (primary) hypertension, N18.9 - Chronic kidney disease, unspecified, R80.9 - Proteinuria, unspecified Total Protein Urine Random 6 Months I10 - Essential (primary) hypertension, N18.9 - Chronic kidney disease, unspecified, R80.9 - Proteinuria, unspecified Creatinine Urine 6 Months I10 - Essential (primary) hypertension, N18.9 - Chronic kidney disease, unspecified, R80.9 - Proteinuria, unspecified Coding Level of Care Code Est Pt Level 4 (67533) Diagnoses SLE (systemic lupus erythematosus related syndrome) M32.9 CKD (chronic kidney disease) N18.9 HTN (hypertension) I10 Albuminuria R80.9
--- OUTSIDE RECORDS SUMMARY | 2025-06-24 10:25 | XMS_ITS | Encounter Summary ---
Author Organization [facility] Address [address] [place] [address] Care Team Providers Care Alarm Installer Name Role Phone Jamir Rubi MD Primary Care Provider Encounter Details Date Type Department Care Team (Late st Contact Info) Description 11/03/2024 Lab Requisition [facility] - Main Lab [address] [facility] [place] [phone] Anthony Olmstead MD [address] [place] [phone] Mild cervical dysplasia Social History Tobacco [...] Care Team (Late st Contact Info) Description 06/26/2025 10:00 AM EDT Office Visit Gastroenterology - [address] [facility] [address] [place] [phone] Matteo Carpenter PA 299 [facility] 419 [place] [address] 07/14/2025 11:45 AM EDT Office Visit [facility] Hematology Oncology [address] [place] [phone] Virginia Andrea MD [address] [place] [address] 07/27/2025 1:15 PM EDT Office Visit Pulmonolgy - [place] 175 [facility] 200 [place] [phone] Jeramie Posada MD 175 [facility] 200 [place] [address] 08/03/2025 2:00 PM EDT Appointment [facility] Endoscopy [address] [place] [phone] José Miguel Zhou MD [address] [address] documented as of this encounter Procedures Procedure Name Priority Date/Time Associated Diagnosis Comments TISSUE EXAM Routine 10/31/2024 Mild cervical dysplasia documented in this encounter Results * Tissue Exam (10/31/2024) Final Diagnosis Endocervical curettings: Chronic endocervicitis Benign squamous epithelium No squamous intraepithelial lesion or glandular neoplasm identified 11/04/2024 9:35 AM [facility] Clinical Information 05/2024 LSIL/JUAN PABLO 1 - ECC 11/04/2024 9:35 AM [facility] Gross Description A. Endocervix, ECC: Labeled with the patient's name and information. Received in formalin is a 0.2 cm aggregate of minute garcia-pink possible soft tissue fragments which is submitted in toto in a mesh bag in one cassette, multiple pieces, x 2. JOEY 11/04/2024 9:35 AM EST [facility] Disclaimer Unless otherwise specified, all tissue is 10% NB formalin fixed and paraffin embedded. 11/04/2024 9:35 AM EST [facility] Tissue Endocervical structure / Unknown 10/31/2024 11/03/2024 9:39 AM EST us Anthony Olmstead MD LAB PATHOLOGY ORDERABLES Final R esult [facility] [address] [place] [address], documented in this encounter Visit Diagnoses Diagnosis Mild cervical dysplasia Mild dysplasia of cervix documented in this encounter Care Teams Alarm Installer Relationship Specialty Start Date End Date Jamir Rubi MD [address] [place] [address] PCP - General Internal Medicine 11/25/24 documented as of this encounter
--- OUTSIDE RECORDS SUMMARY | 2025-06-24 10:25 | XMS_ITS | Clinical Summary ---
Author Organization [facility] Address [address] [place] [address] Care Team Providers Care Sonoscope Operator Name Role Phone Jamir Rubi MD Primary Care Provider [phone] Allergies Active Allergy Reactions Criticality Noted Date [...] as needed for wheezing. 0 Active Umeclidinium [place] (Incruse Ellipta) 62.5 MCG/ACT AEPB Inhale into [...] daily. 0 Active vitamin A 3 MG (40186 UT) CAPS capsule Take 1 capsule (3 mg total) by mouth daily. 0 Active Turmeric-Angie 150-25 MG CHEW Chew by mouth. 0 Active Calcium Carbonate-Vit D-Min (GNP Calcium Plus 600 +D) 600-200 MG-UNIT TABS Take by mouth. 0 Active vitamin D3 (cholecalciferol) 25 MCG (1000 UT) tablet Take 1 tablet (25 mcg total) by mouth daily. 0 Active aspirin-sod bicarb-citric acid (Heather-[place]) 325 MG TBEF Take 325 mg by [...] on an empty stomach. 0 Active Tiotropium [place] Monohydrate (Spiriva Respimat) 2.5 MCG/ACT AERS Inhale [...] age to complete this topic Care Teams Sonoscope Operator Relationship Specialty Start Date End Date Jamir Rubi MD [address] [address] PCP - General Internal Medicine 11/22/23
--- OUTSIDE RECORDS SUMMARY | 2025-06-24 10:25 | XMS_ITS | Clinical Summary ---
Author Organization [facility] Address [address] [place] [address] Phone Care Team Providers Care Diesel Powerplant Mechanic Name Role Phone Jamir Rubi MD Primary Care Provider [phone] Allergies Active Allergy Reactions Criticality Noted Date Comments Acetaminophen-Codeine 01/20/2021 Codeine Other (see comments) 01/20/2021 Sulfamethoxazole-Trimethoprim Other (see comments) 01/20/2021 Medications fluticasone-salm eterol (ADVAIR DISKUS) 100-50 MCG/DOSE diskus inhaler Advair Diskus 100 mcg-50 mcg/dose powder for inhalation Active Cobalamin Combinations (Vitamin X46-Ttsge Acid) 500-400 MCG tablet Take 1 tablet by mouth 1 (one) time each day Active Albuterol Sulfate (ProAir RespiClick) 108 (90 Base) MCG/ACT aerosol powder Active Vitamin A 3 MG (20052 UT) capsule Take 1 capsule by mouth [...] 2021 Influenza Vaccine (#1) 2025 10/10/2016 Insurance [facility] Care Teams Diesel Powerplant Mechanic Relationship Specialty Start Date End Date Jamir Rubi MD [address] [place] [address] PCP - General 11/15/20
--- OUTSIDE RECORDS SUMMARY | 2025-06-24 10:25 | XMS_ITS | Clinical Summary ---
Author Organization [facility] Address [address] [address] Phone Care Team Providers Care Maintenance Porter Name Role Phone Jamir Rubi MD Primary [...] have reviewed most recent labs available from [facility] hospitalization for asthma exacerbation earlier this [...] 10/2024 for SLE flare per patient though [facility] discharge summary is not available for [...] Type Department Care Team Description 05/09/2025 Telephone [facility] Rheumatology [address] [place] [address] [place] [address] Mylene Quintanilla MD 05/03/2025 Refill [facility] Rheumatology [address] [place] [address] [place] [address] Aurelia Mondragon MD, MPH Medication Refill 04/13/2025 Orders Only [facility] Virtual Department [address] [place] [address] Ariel Arboleda MD 04/09/2025 Refill [facility] Rheumatology [address] [place] [address] [place] [address] Aurelia Mondragon MD, MPH Med Change Request 04/07/[address] [place] [address] Raulito Kwok MD Medication Refill 03/27/2025 Orders Only [address] [place] [address] Aurelia Mondragon MD, MPH 03/24/2025 10:33 AM EDT - 03/24/2025 11:59 PM EDT Hospital Encounter [facility], X-Ray - [address] [place] [address] Aurelia Mondragon MD, MPH Discharge Disposition: Home or Self Care 03/24/2025 10:33 AM EDT - 03/24/2025 11:59 PM EDT Hospital Encounter [facility] X-Ray - [address] [place] [address] Aurelia Mondragon MD, MPH Discharge Disposition: Home or Self Care 03/24/2025 9:40 AM EDT Office Visit [facility] Rheumatology [address] [place] [address] [place] [address] Aurelia Mondragon MD, MPH Neuropathic pain (Primary Dx); Bilateral low back pain with right-sided sciatica, unspecified chronicity; Right groin pain; Acute bursitis of right shoulder; Systemic lupus erythematosus, unspecified SLE type, unspecified organ involvement status; Rotator cuff tendinitis, right 03/24/2025 Telephone [facility] Rheumatology [address] [place] [address] [place] [address] Aurelia Mondragon MD, MPH Labs from Last 3 Months Family History Medical [...] Description 07/30/2025 11:40 AM EDT Office Visit [facility] Rheumatology [address] [place] [address] [place] [address] Aurelia Mondragon MD, MPH [address] [facility], [address] [place] [address] [email or web address] Health Maintenance Due Date Last Done Comments [...] DNA ANTIBODIES Routine 03/24/2025 9:55 AM EDT COMPREHENSIVE METABOLIC PANEL Routine 11/18/2024 12:09 [...] fracture or malalignment. Mild lower lumbar facetarthropathy Aurelia Mondragon MD, MPH IMG XR SPINE [...] clinician's provided indication for this examination in [facility]: Pain COMPARISON: None Procedure Note Aruna Padilla MD - 03/24/2025 XR HIPS 2+ VW EA BILAT PLUS PELVIS 03/24/2025 10:58 AM Referring clinician's provided indication for this examination in Epic:Pain COMPARISON: None IMPRESSION: FINDINGS/IMPRESSION: There is no [...] al Result EXTERNAL NON-INTERFACED REF LAB * (ABNORMAL) Comprehensive metabolic panel (11/18/2024 12:09 PM EST) SODIUM 140 133 - 146 mmol/L [facility] POTASSIUM 3.8 3.3 - 5.1 mmol/L [facility] CHLORIDE 101 96 - 108 mmol/L [facility] CO2 29 21 - 35 mmol/L [facility] BUN 18 6 - 19 mg/dL [facility] CREATININE 0.70 0.5 - 1.5 mg/dL [facility] GLUCOSE 179(H) 70 - 99 mg/dL [facility] ALBUMIN 3.8(L) 3.9 - 4.8 g/dL [facility] TOTAL PROTEIN 8.4(H) 6.5 - 8.0 g/dL [facility] CALCIUM 9.2 8.4 - 10.3 mg/dL [facility] ALKALINE PHOSPHATASE 98 39 - 117 U/L [facility] TOTAL BILIRUBIN 0.3 0.0 - 1.2 mg/dL [facility] AST 39(H) 0 - 37 U/L [facility] ALT 44(H) 0 - 40 U/L [facility] GLOBULIN 4.6 1 - 4.8 g/dL [facility] EGFR 104 >59 mL/min/1.7 3m2 [facility] Comment:Estimated glomerular filtration rate calculated using the CKD-EPI refit equation. ANION GAP 14 10 - 20 mmol/L [facility] Blood 11/18/2024 12:0 9 PM EST 11/18/2024 12:12 PM EST us Aurelia Mondragon MD, MPH LAB BLOOD ORDERABLES Fin al Result Performing Organization Address City/State[facility] Co de Phone Number [address] [address] from Last 3 Months or Most Recently Relevant to Health Maintenance Insurance Member Subscriber Plan / Payer ( fective 2023-Present) Name:Kimmy Duenas Relation to Subscriber:Self Name:Kimmy Duenas Payer ID:Not on file Type:HMO Address: [place] [id number] Care Teams Maintenance Porter Relationship Specialty Start Date End Date Jamir Rubi MD [address] [place] [id number] PCP - General Internal Medicine 06/19/23 Additional Source Comments The information contained in this document represents components of the legal health record. It is not the complete legal health record.[facility]
== END 2025-06-24 10:04 | disposition home or self-care (01) ==
LOC: HO.HKAS 09:38
PROVIDERS: PCP Internal Medicine; Visit Provider Internal Medicine Hypertension Specialist
DX: M32.9 Systemic lupus erythematosus, unspecified (principal); I12.9 Hypertensive chronic kidney disease with stage 1 through stage 4 chronic kidney disease, or unspecified chronic kidney disease; N18.9 Chronic kidney disease, unspecified; R80.9 Proteinuria, unspecified
CPT/HCPCS: 99214

== ENCOUNTER 2025-09-02 09:57 | Outpatient (AMB) | payer OTHER, SELFPAY ==
--- OUTSIDE RECORDS SUMMARY | 2025-08-11 10:30 | XMS_ITS ---
Author Organization [facility] Address [address] [place], [place] [phone] Care Team Providers Care Machine Scallop Cutter Name Role Phone JOVITA LONGORIA Primary Care Provider REASON FOR VISIT 42 6mo F/U Encounters Encounter Location Date Provider Diagnosis [facility] [address] [place] [address] 08/11/2025 JOVITA LONGORIA PLAN OF TREATMENT No Information
--- OUTSIDE RECORDS SUMMARY | 2025-08-11 11:31 | XMS_ITS ---
Author Organization [facility] Address [address] [place], [place] [id number] Care Team Providers Care Surveyor Helper Name Role Phone JOVITA LONGORIA Primary Care Provider [phone] REASON FOR VISIT MRI Results Encounters Encounter Location Date Provider Diagnosis [facility] [address] [place] [address] 08/11/2025 JOVITA LONGORIA PLAN OF TREATMENT No Information
--- OUTSIDE RECORDS SUMMARY | 2025-08-11 13:02 | XMS_ITS ---
Author Organization [facility] Address [address] [place], [place] [phone] Care Team Providers Care Bilingual Manager Name Role Phone JOVITA LONGORIA Primary Care Provider [phone] Encounters Encounter Location Date Provider Diagnosis [facility] [address] [place] [address] 08/11/2025 JOVITA LONGORIA PLAN OF TREATMENT No Information
--- OUTSIDE RECORDS SUMMARY | 2025-08-13 06:44 | XMS_ITS ---
Author Organization [facility] Address [address] [place], [place] [id number] Care Team Providers Care Rat Culturist Name Role Phone JOVITA LONGORIA Primary Care Provider REASON FOR VISIT CM/ ED PARAS Encounters Encounter Location Date Provider Diagnosis [facility] [address] [place] [address] 08/13/2025 JOVITA LONGORIA PLAN OF TREATMENT No Information
--- OUTSIDE RECORDS SUMMARY | 2025-08-20 09:30 | XMS_ITS ---
Author Organization [facility] Address [address] [place], [place] [phone] Care Team Providers Care Surveillance Officer Name Role Phone JOVITA LONGORIA Primary Care Provider REASON FOR VISIT echo Encounters Encounter Location Date Provider Diagnosis [facility] [place] [facility] [address] [place] [address] 08/20/2025 JOVITA LONGORIA PLAN OF TREATMENT No Information
--- OUTSIDE RECORDS SUMMARY | 2025-08-22 05:00 | XMS_ITS ---
Author Organization [facility] Address [address] [place], [place] [phone] Care Team Providers Care Clinical Psychologist Private Practice Name Role Phone JOVITA LONGORIA Primary Care Provider REASON FOR VISIT labs Encounters Encounter Location Date Provider Diagnosis [facility] [address] [place] [address] 08/22/2025 JOVITA LONGORIA PLAN OF TREATMENT No Information
--- OUTSIDE RECORDS SUMMARY | 2025-09-01 09:00 | XMS_ITS ---
Author Organization [facility] Address [address], [place] [id number] Care Team Providers Care Market Research Manager Name Role Phone JOVITA LONGORIA Primary Care Provider ALLERGIES Allergen (clinical drug ingredient) Drug/Non Drug Allergy documented on EMR Reaction Allergy Type Onset Date Status TYLENOL # 3 (uncoded) vomiting Allergy Active sulfamethoxazole / trimethoprim Bactrim Unknown Drug Allergy Active azathioprine Imuran liver tests Drug Allergy Ac tive dextromethorphan / guaifenesin Robitussin Cough+Chest David DM tongue tingling and swelling Drug Allergy Active valsartan Valsartan anaphylaxis Drug Allergy Activ e REASON FOR REFERRAL Reason Consultation Dr. mathew [facility] neurology [place] abnormal brain arm MRI send my last note and the MRI of the brain to her Diagnosis 1 Abnormal brain MRI ( R90.89) [facility] Referring Provider First Name JOVITA Referring Provider Last Name SWATI Referring Provider Speciality Internal edicine Referral Priority Routine Reason Referral to [facility] cardiology Dr. cantu for cardiomyopathy Diagnosis 1 Other cardiomyopathi es (I42.8) [facility] Referring Provider First Name JOVITA Referring Provider Last Name SWATI Referring Provider Speciality Internal edicine Referral Priority Routine REASON FOR VISIT 42 6mo F/U, would like flu vaccine MEDICATIONS Medication SIG (Take, Route, Frequency, Duration) Notes Start Date End Date Status Fiber Adult Gummies 2 GM 3 gummies Orall y once a day Active Senna 8.6 MG 2 tablets at bedtime as needed Orally Once a day for 30 day(s) Active Albuterol Sulfate (2.5 MG/3M L) 0.083% 3 mL as needed Inhalation every 6 hrs Active Albuterol Sulfate 108 (90 Base) MCG/ACT 2 puff as needed Inhalation every 4 hrs prn Active Spiriva Respimat 2.5 MCG/ACT 2 puffs Inh alation Once a day Active Symbicort 160-4.5 MCG/ACT 2 puff(s) inha led 2 times a day Active predniSONE 10 MG 1 tablet with food o r milk Orally Once a day 9 mg 03/10/2025 Active Gabapentin 300 MG 1 capsule Orally Onc e a day for 30 day(s) Active Furosemide 20 MG 1 tablet Orally Once a day 04/24/2025 Active Iron 25 MG as directed Orally qod Active Carvedilol 25 MG 1 tablet with food Orally Twice a day Active Cetirizine HCl 10 MG 1 tablet Orally Twi ce a day Active Levothyroxine Sodium 200 MCG 1 tablet in the morning on an empty stomach Orally Once a day Active amLODIPine Besylate 10 MG 1 tablet Orall y Once a day for 90 days Active cloNIDine HCl 0.1 MG 1 tablet Orally 3 i n the am and 3 in the pm Active Vitamin B-12 1000 MCG 1 tablet under the tongue and allow to dissolve Sublingual Once a day 05/09/2024 Active Magnesium Oxide -Mg Suppleme nt 400 (240 Mg) MG 1 tablet with food Orally Once a day Active [place] [phone] MG 2 tablets dissolved in 4 ounces of water as needed Orally Twice a day Active Aspirin EC 81 MG 1 tab(s) orally once a day Active Atorvastatin Calcium 10 MG 1 tablet Oral ly Once a day 12/25/2023 Active Hydroxychloroquine Sulfate 2 00 MG 2 tablets Orally once a day Active metFORMIN HCl 500 MG 2 tabs AM, 1 tab PM orally twice a day Active Mycophenolate Mofetil 500 MG 1 tablet or ally once daily Active Banophen 25 MG 1 tablet at bedtime as needed Orally Q 6 hrs. prn Active EPINEPHrine 0.3 MG/0.3ML as directed Inj ection as directed 10/23/2023 Active Omeprazole 20 MG 1 capsule 30 minutes before morning meal Orally twice a day Active Tylenol 8 Hour Arthritis Leonela n 650 MG 2 tablets as needed Orally every 8 hrs Active MiraLax 17 GM/SCOOP 1 scoop mixed with 8 ounces of fluid Orally Once a day Active SOCIAL HISTORY Tobacco Use: Social History Observation Description Date Details (start date - stop date) Never Smoker NA - NA Sex Assigned At : Social History Observation Description Sex Assigned At Unknown Smoking Question Answer Notes Are you a: never smoker PROBLEMS Problem Type ICD Code Onset Dates Problem Status W/U Status Risk SNOMED Code Notes Problem Other cardiomyopathies (I42.8) Active confirmed [id number] VITAL SIGNS Height 64 in 09/01/2025 Weight 213 lbs 09/01/2025 Blood pressure systolic 112 mm Hg 09/01/20 25 Blood pressure diastolic 74 mm Hg 025 BMI 36.56 kg/m2 09/01/2025 Encounters Encounter Location Date Provider Diagnosis [facility] [address] [place] [address] 09/01/2025 JOVITA LONGORIA Other cardiomyopathi es I42.8 ; Encounter for screening mammogram for malignant neoplasm of breast Z12.31 ; Systemic lupus erythematosus M32.9 ; Sjogrens syndrome M35.00 ; Essential (primary) hypertension I10 ; Type 2 diabetes mellitus without complications E11.9 ; Obstructive sleep apnea (adult) (pediatric) G47.33 ; Fatty liver K76.0 ; Anemia, unspecified D64.9 and Abnormal brain MRI R90.89 ASSESSMENTS Encounter Date Diagnosis Assessment Notes Treatment Notes Treatment Clinical Notes Section Notes 09/01/2025 Other cardiomyopathies (ICD-10 - I42.8) Consultation [facility] cardiology. Dr. Mayda Rao spoke with after her echo and he said he would get patient in but has not done this to date. Therefore we will put a consult in a call to him fortunately no significant symptoms at the present time to new above medications include diuretics carvedilol etc. 09/01/2025 Encounter for screening mammogram for malignant neoplasm of breast (ICD-10 - Z12.31) Rx given to patient to set up mammogram in the spring. Patient states she did have 1 within the last 6 months therefore we will track down at [facility] 09/01/2025 Systemic lupus erythematosus (ICD-10 - M32.9) Stable follow-up with rheumatology continue mycophenolate continue prednisone and decreasing dosage presently at 9 mg plans to slowly taper over the next 6 months 09/01/2025 Sjogrens syndrome (ICD-10 - M35.00) Stable 09/01/2025 Essential (primary) hypertension (ICD-10 - I10) Stable blood pressure well-controlled no change in therapy 09/01/2025 Type 2 diabetes mellitus without complications (ICD-10 - E11.9) A1c 6.0 recheck every 3 to 4 months. No polyuria polydipsia ophthalmologic symptoms ophthalmology exam q. year continue statin therapy and other meds as above 09/01/2025 Obstructive sleep apnea (adult) (pediatric) (ICD-10 - G47.33) Continue CPAP therapy 09/01/2025 Fatty liver (ICD-10 - K76.0) Stable recheck LFTs patient does not drink on numerous medications that could impact liver. Follow-up [facility] as well 09/01/2025 Anemia, unspecified (ICD-10 - D64.9) Follow-up [facility] hematology check CBC 09/01/2025 Abnormal brain MRI (ICD-10 - R90.89) Set up consultation with neurology at [facility] for abnormal brain MRI. Patient's neurologic exam nonfocal no significant symptoms at the present time PLAN OF TREATMENT Treatment Notes Assessment Notes Other cardiomyopathies Consultation [facility] cardiology. Dr. Mayda Rao spoke with after her echo and he said he would get patient in but has not done this to date. Therefore we will put a consult in a call to him fortunately no significant symptoms at the present time to new above medications include diuretics carvedilol etc. Encounter for screening mamm ogram for malignant neoplasm of breast Rx given to patient to set up mammogram in the spring. Patient states she did have 1 within the last 6 months therefore we will track down at [facility] Systemic lupus erythematosus Stable foll ow-up with rheumatology continue mycophenolate continue prednisone and decreasing dosage presently at 9 mg plans to slowly taper over the next 6 months Sjogrens syndrome Stable Essential (primary) hypertension Stable blood pressure well-controlled no change in therapy Type 2 diabetes mellitus wit hout complications A1c 6.0 recheck every 3 to 4 months. No polyuria polydipsia ophthalmologic symptoms ophthalmology exam q. year continue statin therapy and other meds as above Obstructive sleep apnea (adult) (pediatr ic) Continue CPAP therapy Fatty liver Stable recheck LFTs patient does not drink on numerous medications that could impact liver. Follow-up [facility] as well Anemia, unspecified Follow-up [facility] tology check CBC Abnormal brain MRI Set up consultation with neurology at [facility] for abnormal brain MRI. Patient's neurologic exam nonfocal no significant symptoms at the present time Future Test Test Name Order Date Urinalysis, Complete w/[id number] 025 Albumin/Creatinine Ratio,[id number] Referrals Referral Date Details Consultation Dr. mathew ramirez [place] abnormal brain arm MRI send my last note and the MRI of the brain to her Referral to [facility] cardiology Dr. cantu for cardiomyopathy Next Appt Details Follow Up: Follow-up November or December, Reason: Progress Notes * Examination Category Sub-Category Detail Notes Category Not es General Examination HEENT: Conjunctiva pink anicteric mucous membranes moist oropharynx clear TMs clear sinus clear EACs clear Neck: Supple carotids 2+ n o bruits lymphadenopathy or thyromegaly Heart: RRR, no murmurs, cli cks or rubs Lungs: Bilateral breath trina nds lower lobe crackles one quarter of the way up Abdomen: soft, non tender/non distended, no rebound tenderness, no guarding or rigidity, no masses palpated, no hepatosplenomegaly, normal active bowel sounds Extremities: No significant edema pulses intact equal bilaterally General Appearance Pleasant fe male appearing stated age no apparent distress Neuro alert and oriented x 3, CN 2-12 intact, motor 5/5 bilaterally proximally and distally in all 4 extremities, no focal abnormality History and Physical Notes * HPI (History of Present Illness) Category Sub-Category Detail Notes Category Not es General Follow-up hyper tension. See review of systems below Consultation Request Notes Referral Date Referring Provider Referred Provider Not es 09/01/2025 JOVITA LONGORIA , Consultation Dr. herminia ramirez [place] abnormal brain arm MRI send my last note and the MRI of the brain to her 09/01/2025 JOVITA LONGORIA , Referral to [facility] cardiology Dr. cantu for cardiomyopathy
--- OUTSIDE RECORDS SUMMARY | 2025-09-01 09:43 | XMS_ITS ---
Author Organization [facility] Address [address], [place] [id number] Care Team Providers Care Parts Chaser Name Role Phone JOVITA LONGORIA Primary Care Provider [phone] REASON FOR VISIT need f/u Encounters Encounter Location Date Provider Diagnosis [facility] [address] [place] [address] 09/01/2025 JOVITA LONGORIA PLAN OF TREATMENT No Information
--- OUTSIDE RECORDS SUMMARY | 2025-09-01 09:45 | XMS_ITS ---
Author Organization [facility] Address [address], [place] [id number] Care Team Providers Care Slipman Name Role Phone JOVITA LONGORIA Primary Care Provider [place], NURSING Unavailable [phone] REASON FOR VISIT flu shot IMMUNIZATIONS Vaccine Route Administration Date Status Comme nts Influenza, Flublok IM Intramuscular 09/01/2025 Administere d Encounters Encounter Location Date Provider Diagnosis [facility] [address] [place] [address] 09/01/2025 NURSING [place] Encounter for immunization Z23 ASSESSMENTS Encounter Date Diagnosis Assessment Notes Treatment Notes Treatment Clinical Notes Section Notes 09/01/2025 Encounter for immunization (ICD-10 - Z23) Influenza vaccine administered. Patient counseled and VIS sheet given. PLAN OF TREATMENT Treatment Notes Assessment Notes Encounter for immunization Influenza vac cine administered. Patient counseled and VIS sheet given.
--- OUTSIDE RECORDS SUMMARY | 2025-09-02 04:26 | XMS_ITS ---
Author Organization [facility] Address [address] [place], [place] [id number] Care Team Providers Care Art Museum Docent Name Role Phone JOVITA LONGORIA Primary Care Provider REASON FOR VISIT (W)thyroid Encounters Encounter Location Date Provider Diagnosis [facility] [address] [place] [address] 09/02/2025 JOVITA LONGORIA Hypothyroidism, unspecified E03.9 and Anemia, unspecified D64.9 ASSESSMENTS Encounter Date Diagnosis Assessment Notes Treatment Notes Treatment Clinical Notes Section Notes 09/02/2025 Hypothyroidism, unspecified (ICD-10 - E03.9) 09/02/2025 Anemia, unspecified (ICD-10 - D64.9) PLAN OF TREATMENT Future Test Test Name Order Date T4 Free Direct (Thyroxine)-[id number] 2024 [id number] 09/30/2025 T4 Free Direct (Thyroxine)-[id number] 2024 [id number] 10/14/2025 Thyroid Peroxidase (TPO) [id number] 10/14 T3 Free (Triiodothyronine)-[id number] 2024 CBC, Platelet, w/o Differential-[id number] 1 12/15/2024
--- NOTE | 2025-09-02 10:02 | HO.NEPHOV_ITS ---
Vital Signs 09/02/25 10:03 09/02/25 10:14 Height 5 ft 4 in Weight 212 lb BMI 36.4 BP 130/90 H 120/84 Blood Pressure Location Lt brachial Lt brachial Position Sitting Left Lateral Pulse 94 Pulse Source Pulse Oximeter Pulse Oximetry (%) 98 Oxygen Delivery Method Room Air Intake Visit Reasons: f/u Attendance Officer Required: No Accompanied by: Self / Same As Patient Allergies acetaminophen Allergy (Mild, Verified 09/02/25 10:05) Unknown codeine Allergy (Mild, Verified 09/02/25 10:05) Unknown sulfamethoxazole (From Sulfamethoxazole-Trimethoprim) Allergy (Mild, Verified 09/02/25 10:05) Unknown trimethoprim (From Sulfamethoxazole-Trimethoprim) Allergy (Mild, Verified 09/02/25 10:05) Unknown Medication List - Last Reconciled 09/02/25 by James Lee MD albuterol sulfate 90 mcg/actuation inhalation amlodipine 10 mg PO DAILY aspirin 81 mg PO DAILY atorvastatin 20 mg PO DAILY budesonide-formoterol 160-4.5 mcg/actuation (Symbicort) inhalation carvedilol 25 mg PO BID cetirizine 10 mg PO DAILY clonidine HCl 0.2 mg PO DAILY cyanocobalamin (vitamin B-12) 1,000 mcg sublingual DAILY cyclobenzaprine 10 mg PO BEDTIME PRN doxycycline monohydrate 100 mg PO DAILY PRN furosemide 20 mg PO DAILY gabapentin 300 mg PO BEDTIME hydrochlorothiazide 25 mg PO DAILY hydroxychloroquine 200 mg PO BID levothyroxine 200 mcg PO DAILY magnesium oxide 400 mg PO DAILY metformin 500 mg PO TID methylprednisolone 4 mg PO PRN mycophenolate mofetil (CellCept) 500 mg PO ONCE omeprazole 20 mg PO DAILY prednisone 4 mg PO DAILY prednisone 5 mg PO DAILY tiotropium bromide 2.5 mcg/actuation (Spiriva Respimat) 2 puffs inhalation DAILY tirzepatide (Mounjaro) 2.5 mg subcut QWEEK HPI Comments Details: Kimmy is a middle aged woman with SLE Recently hospitalized Currently on tapering dose of Prednisone; BP is well controlled ; Off Spironolatone Metoprolol has been added 05/28/24 DEveloped anemia; Had rectal bleed- s/p colonoscopy; s/p transfusion ;Following with Dr. Andrea 12/24/24 ;Doing better. No new issues today. 06/24/25 The patient is a 54-year-old female presenting with anemia and lupus. 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 No current iron supplements; received IV iron twice last year. Kidney function stable; anemia persists. Shortness of breath on exertion, relieved by rest. Lupus managed with hydroxychloroquine and prednisone. Lupus symptoms, including rash and joint pain, are controlled. Rheumatology follow-up scheduled for October. MEDICAL HISTORY: - Lupus - Anemia MEDICATIONS: - Hydroxychloroquine for lupus - Prednisone 10 mg for lupus - Tylenol for pain management - Gabapentin for pain management SOCIAL HISTORY: - Currently on vacation, resting well. - Avoids high sodium foods, prefers low sodium options. 09/02/25 ! - The patient is a 54-year-old female presenting with a follow-up for Systemic Lupus Erythematosus (SLE). - Reports ankle and wrist pain, possibly related to lupus. - Prednisone adjusted from 10 mg to [address] Mondragon. - Hemoglobin 10.6 g/dL, indicating anemia, improved from previous levels. - Kidney function stable, creatinine 0.73 mg/dL. - Blood pressure: Top number okay, bottom number 98 mmHg. - Shortness of breath during long-distance walking and stair climbing, improving. - History of sleep apnea, MRI results unsatisfactory. - Allergic to Losartan, causes facial swelling. PFSH Family History Mother Diabetes Father Diabetes Hypertension Social History Patient Tobacco Use Status: Never used Tobacco Physical Exam Vital Signs: Last Vital Signs Pulse 94 09/02/25 10:03 BP 120/84 09/02/25 10:14 Pulse Ox 98 09/02/25 10:03 Oxygen Delivery Method Room Air 09/02/25 10:03 BMI result Body Mass Index 36.4 Const General: comfortable; No acute distress Orientation/consciousness: patient oriented x3 Eyes General: appearance normal, both eyes and all related structures Visual Hercules: normal visual hercules by confrontation Neck Neck: Yes supple and Yes no JVD Resp Effort & Inspection: normal respiratory effort and respiratory effort not decreased Auscultation: rhonchi Cardio Palpation: no palpable S3 and no palpable S4 Heart sounds: no rubs GI Inspection: Yes normal to inspection Palpation (GI): Soft to palpation Percussion: Yes normal to percussion Auscultation: normal bowel sounds General: Yes no CVA tenderness Back/Spine/Pelvis Back: no CVA tenderness Skin General skin exam: no petechiae and no purpura Neuro General: patient oriented x3 and no focal motor deficits Extrem General: No clubbing and No edema Results Reviewed Nephrology Results: Sodium, (135-145) 139 mmol/L 06/03/25 Potassium, (3.3-5.1) 4.3 mmol/L 06/03/25 Chloride, (96-108) 104 mmol/L 06/03/25 Carbon Dioxide, (22-29) 28 mmol/L 06/03/25 BUN, (9-16) 24 mg/dL H 06/03/25 Creatinine, (0.5-1.4) 0.84 mg/dL 06/03/25 Calcium, (8.4-10.2) 8.3 mg/dL L 06/03/25 Urine Protein, (Neg-Trace) 100 (2+) mg/dL H 06/03/25 Urine Creatinine 55.40 mg/dL 06/03/25 Assessment & Plan Assessment & Plan (1) SLE (systemic lupus erythematosus related syndrome): Code(s): M32.9 - Systemic lupus erythematosus, unspecified Category: Medical (2) CKD (chronic kidney disease): Code(s): N18.9 - Chronic kidney disease, unspecified Category: Medical (3) HTN (hypertension): Code(s): I10 - Essential (primary) hypertension Category: Medical (4) Albuminuria: Code(s): R80.9 - Proteinuria, unspecified Category: Medical Plan 54-year-old woman with a history of lupus nephritis and hypertension. At present renal function stable at baseline. We will continue to monitor urinary protein excretion. Blood pressure is better controlled Now on Amlodipine/Coreg/HCTZ ; No changes were made to her antihypertensive medications. SLE. Currently being managed by a electroplating sales representative and she is on mycophenolate. Hydroxychloroquine and prednisone. Anemia secondary to blood loss. h/o Hemorrhoids; s/p Transfusion ; Reason hemoglobin is more than 10 Follow with Orders: Orders Basic Metabolic Panel 4 Months I10 - Essential (primary) hypertension, N18.9 - Chronic kidney disease, unspecified, R80.9 - Proteinuria, unspecified Complete Blood Count no Diff 4 Months I10 - Essential (primary) hypertension, N18.9 - Chronic kidney disease, unspecified, R80.9 - Proteinuria, unspecified Creatinine Urine 4 Months I10 - Essential (primary) hypertension, N18.9 - Chronic kidney disease, unspecified, R80.9 - Proteinuria, unspecified Total Protein Urine Random 4 Months I10 - Essential (primary) hypertension, N18.9 - Chronic kidney disease, unspecified, R80.9 - Proteinuria, unspecified UA and rflx microscopic 4 Months I10 - Essential (primary) hypertension, N18.9 - Chronic kidney disease, unspecified, R80.9 - Proteinuria, unspecified Coding Level of Care Code Est Pt Level 4 (27540) Diagnoses SLE (systemic lupus erythematosus related syndrome) M32.9 CKD (chronic kidney disease) N18.9 HTN (hypertension) I10 Albuminuria R80.9
[2025-09-02 10:03] VITALS: BP 130/90; PULSE 94; O2SAT 98; BMI 36.4
[2025-09-02 10:14] VITALS: BP 120/84
--- OUTSIDE RECORDS SUMMARY | 2025-09-02 11:59 | XMS_ITS | Clinical Summary ---
Author Organization [facility] Address [address] [place] [address] Care Team Providers Care Ethylbenzene Oxidizer Name Role Phone Jamir Rubi MD Primary Care Provider + [phone] Allergies Active Allergy Reactions Criticality Noted Date [...] as needed for wheezing. 0 Active Umeclidinium [place] (Incruse Ellipta) 62.5 MCG/ACT AEPB Inhale into [...] daily. 0 Active vitamin A 3 MG (55215 UT) CAPS capsule Take 1 capsule (3 mg total) by mouth daily. 0 Active Turmeric-Angie 150-25 MG CHEW Chew by mouth. 0 Active Calcium Carbonate-Vit D-Min (GNP Calcium Plus 600 +D) 600-200 MG-UNIT TABS Take by mouth. 0 Active vitamin D3 (cholecalciferol) 25 MCG (1000 UT) tablet Take 1 tablet (25 mcg total) by mouth daily. 0 Active aspirin-sod bicarb-citric acid (Heather-Douglass) 325 MG TBEF Take 325 mg by [...] on an empty stomach. 0 Active Tiotropium [place] Monohydrate (Spiriva Respimat) 2.5 MCG/ACT AERS Inhale [...] Tdap) 02/08/2024 02/07/2024 COVID-19 Vaccine (4 - 2024-2 6 season) 2025 09/30/2021, 02/12/2021, 01/22/2021 Influenza Vaccine (#1) 2025 3, 10/10/2016 RSV Ped < 20 months Aged Out No longe r eligible based on patient's age to complete this topic Care Teams Ethylbenzene Oxidizer Relationship Specialty Start Date End Date Jamir Rubi MD [address] [address] PCP - General Internal Medicine 11/22/23
--- OUTSIDE RECORDS SUMMARY | 2025-09-02 11:59 | XMS_ITS | Encounter Summary ---
Author Organization [employer] Address [address] [place] [address] Care Team Providers Care Import Coordinator Name Role Phone Jamir Rubi MD Primary Care Provider [phone] Encounter Details Date Type Department Care Team (Late Contact Info) Description 06/26/2025 Lab Requisition [facility] - Main Lab 299 [facility]ly [facility] [place] [phone] Anthony Olmstead MD [address] [phone] Atypical squamous cells of undetermined significance on cytologic smear of cervix (ASC-US) Social History Tobacco Use Types Packs/Day Years Used Date Smoking Tobacco: Never Passive Smoke Exposure: Never Smokeless Tobacco: Never Alcohol Use Standard Drinks/Week Comments Yes 0 (1 standard drink = 0.6 oz pur e alcohol) occ Comments Unknown Sex and Gender Information Value Date Recorded Sex Assigned at Female 11/24/2024 3:37 PM EST Legal Sex Female 1:55 PM EST Gender Identity Female 11/24/2024 3:37 PM EST Sexual Orientation Straight 11/24/2024 3: 37 PM EST documented as of this encounter Plan of Treatment Upcoming Encounters Date Type Department Care Team (Late Contact Info) Description 11/10/2025 11:45 AM EST Office Visit [facility] Hematology Oncology [address] [place] [phone] Virginia Andrea MD [address] [place] [address] documented as of this encounter Procedures Procedure Name Priority Date/Time Associated Diagnosis Comments PAP SMEAR Routine 06/25/2025 12:00 AM EDT Atypical squamous cells of undetermined significance on cytologic smear of cervix (ASC-US) documented in this encounter Results * Pap smear (06/25/2025 12:00 AM EDT) Interpretation Negative for intraepithelial lesion or malignancy 07/03/2025 2:04 PM EDT [facility] General Categorization Negative 07/03/2025 2:04 PM EDT [facility] Specimen Adequacy Satisfactory for evaluation, endocervical/casarez sformation zone component absent 07/03/2025 2:04 PM EDT [facility] Pap Methodology Liquid Based Pap Test 07/03/2025 2:04 PM EDT [facility] Disclaimer The Pap test is a screening test which carries an inherent false negative rate. These test results should be correlated with the patient's clinical findings and history. This Pap test was processed using an automated screening system. Technical cytopathology services provided by [facility], at [address] [place] [id number] (CLIA # [id number]/Kristen Cormier MD, Locomotive Engineer.) 07/03/2025 2:04 PM EDT [facility] Console Pap Interpretation Reported 07/03/2025 2:04 PM [facility] Brushing/Spatula Cervix uteri structure / Unknown 06/25/2025 06/26/2025 6:52 AM EDT us Anthony Olmstead MD LAB CYTOLOGY ORDERABLES Final Result [facility] [address] [place] [address], documented in this encounter Visit Diagnoses Diagnosis Atypical squamous cells of undetermined significance on cytologic smear of cervix (ASC-US) documented in this encounter Care Teams Import Coordinator Relationship Specialty Start Date End Date Jamir Rubi MD [address] [place] [address] PCP - General Internal Medicine 11/25/24 documented as of this encounter
--- OUTSIDE RECORDS SUMMARY | 2025-09-02 11:59 | XMS_ITS | Clinical Summary ---
Author Organization [facility] Address [address] [place] [address] Phone Care Team Providers Care Explosive Man Name Role Phone Jamir Rubi MD Primary Care Provider [phone] Allergies Active Allergy Reactions Criticality Noted Date Comments Acetaminophen-Codeine 01/20/2021 Codeine Other (see comments) 01/20/2021 Sulfamethoxazole-Trimethoprim Other (see comments) 01/20/2021 Medications fluticasone-salm eterol (ADVAIR DISKUS) 100-50 MCG/DOSE diskus inhaler Advair Diskus 100 mcg-50 mcg/dose powder for inhalation Active Cobalamin Combinations (Vitamin T62-Jlpgg Acid) 500-400 MCG tablet Take 1 tablet by mouth 1 (one) time each day Active Albuterol Sulfate (ProAir RespiClick) 108 (90 Base) MCG/ACT aerosol powder Active Vitamin A 3 MG (28262 UT) capsule Take 1 capsule by mouth [...] 2021 Influenza Vaccine (#1) 2025 10/10/2016 Insurance [facility] Care Teams Explosive Man Relationship Specialty Start Date End Date Jamir Rubi MD [address] [place] [address] PCP - General 11/15/20
--- OUTSIDE RECORDS SUMMARY | 2025-09-02 11:59 | XMS_ITS | Data Portability ---
Author Organization [place] [facility], Allergy Address 100 [facility] 100 [place] [address] Care Team Providers Care Section Hand Name Role Phone JOVITA LONGORIA Primary Care Provider Assessment Encounter Date Assessment Date Assessment LastModified [...] Abnormal Flag Note LastModifiedBy Organization Detail LastModifiedTime 06/13/2003/25/2024 audio gram No observ ation record ed. [...] ation record ed. [email or web address] Not Available 19:51:50 07/10/20 24 07/10/2024 sabiha vargas study No observ ation record ed. [facility] Diagnosit Imaging Dept [address] [place] [address], [address], 08/10/2024 17:57:35 07/10/20 24 07/10/2024 chest xr [facility] Diagno stic Imagin g Depart ment [address] [place] [address] ____ Jose Roberto t: LANI AUGUSTE D.O.B. /Age/S ex: 1969 - 53 - F Unit#: [id number] Locati on/Sta tus: SPDIGE N/REG CLI Accoun t#: [id number] Mnemon ic/Ord ering Site: [facility] LOW/SP DI Orderi ng Physic bubba: JOSE ALFREDO MEMBRENO MD ___ CR Barium Kota w - - 816 Report Status :Phyllis d HISTOR Y: The patien t is a 53-yea r-old female with dyspha josiah and a globus sensat ion. 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 Bioprocessing Manufacturing Technician latera l radiog raph of the neck [...] normal double contra st esopha gram. Code 75409 The dose-a obie produc t for this proced ure was 559 uGy*m2 . PQRI CPT II G9500 Dictat ing Physic bubba: KAYKAY WAGNER MD Electr onical ly Signed by: KAYKAY WAGNER MD Dic Date/T delta: 823 Sign date/T delta: 827 [facility] (Central Scheduling Radiology) 299 [facility], [place], [address], 08/10/2024 17:57:35 Result Notes None recorded. 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, nonoblite rative, bilateral ; Note: Date Diagnosed : 01/06/2021 5:39 PM (H80.03) Not Available [facility] 02:14:18 Mixed conductiv e and sensorine ural hearing loss, bilateral 792935114 Active 2020 Mixed conductiv e and sensorine ural hearing loss, bilateral ; Note: Date Diagnosed : 01/06/2021 5:39 PM (H90.6) Not Available [facility] 02:13:36 Gastroeso phageal reflux disease without esophagit is 266731738 Active 2023 Gastro-es ophageal reflux disease without esophagit is; Note: Date Diagnosed : 03/24/2024 9:20 AM (K21.9) Not Available [facility] 02:14:19 Dysphagia 49669734 Active 2023 Dysphagia , pharyngoe sophageal phase; Note: Date Diagnosed : 03/24/2024 9:20 AM (R13.14) Not Available [facility] 02:14:33 Somatofor m disorder 66166451 Active 2023 Psychogen ic dysphagia , including 'globus hystericu s'; Note: Date Diagnosed : 03/24/2024 9:20 AM (F45.8) Not Available [facility] 4 02:14:54 Sensorine ural hearing loss 52130028 Active 2023 YOLANDA HOUSER, MARIS 100 [facility],[place] [address], [place], [address] , [place] - [facility] 4 14:39:29 Mixed conductiv e AND sensorine ural hearing loss 11853657 Active 2023 YOLANDA HOUSER, MARIS [address] [facility],[place] [address], [place], [address] , [facility] - [facility] [place] 4 14:40:16 Conductiv e hearing loss of right ear 3750392882 Active 2023 DANNA CORNELL MD 100 [facility],[place] [address], [facility] [place], [address] , [facility] - [facility] 4 15:07:10 Problem Notes None recorded. Procedures Surgical History Date Name Laterality Status Provider Name and Address Organization Details Recorded Time 03/25/2024 Comp Audio with Tymps - 14993 & 53640 completed YOLANDA HOUSER, [facility] 100 [facility],[place] [address], [place], [address], [place] - [facility] 03/25/2024 14:34:29 Imaging Results None recorded. Procedure Notes None recorded. Medical Equipment None Reported. Allergies Allergen ID Allergen Name Allergen Category Reaction Reaction Severity Criticality Documentation Date Start Date Code Code System Note Provider Name and Address Organization Details Recorded Time 654860 codeine medicatio n Not available Not available Not available 03/25/2024 2670 RxNorm Meenakshi batista [facility] 4 14:44:20 177180 Bactrim medicatio n Not available Not available Not available 03/25/2024 14460 9 RxNorm Meenakshi batista [facility] 4 14:44:26 Medications Name Sig Start [...] Updated DateTime 03/25/2024 162.56 cm 31.8 kg/m2 40907.59 g Meenakshi Jhaveri [place] - [facility] 03/25/2024 14:43:56 Date Recorded Body height Body mass index (BMI) Body weight Provider Name and Address Organization Details Last Updated DateTime 06/20/2024 162.56 cm 32.3 kg/m2 62588.37 g Monik Oreilly [place] - [facility] 06/20/2024 13:23:30 Date Recorded Body height Body mass index (BMI) Body weight Provider Name and Address Organization Details Last Updated DateTime 08/04/2024 162.56 cm 33.6 kg/m2 95600.1 g Monik Oreilly [place] [facility] 08/04/2024 13:02:55 Social History None recorded. Functional Status None recorded. Mental Status None recorded. Family History Nothing Reported. Medical History Condition Response Hypertension Y Asthma Y High Cholesterol Y GERD/Reflux Y Gynecological HistoryNo gynecological history recorded. Obstetrics History GPAL:G 0 P 0 0 0 0 Past Encounters Encounter ID Performer Location Encounter Start Date Encounter Closed Date Diagnosis/Indication Diagnosis SNOMED-CT Code Diagnosis ICD10 Code Diagnosis IMO Codes Diagnosis Note [id number] DANNA CORNELL MD [facility] [address] [address] 03/25/2024 14:11:49 03/25/2024 15:14:22 Mixed conductive AND sensorineural hearing loss 62387246 H90.A32 Audiologic al evaluation results:Ri ght ear:Mild CHL with excellent speech discrimina tion.Left ear:Mild to severe MHL with excellent speech discrimina tion. Tympanomet ry:Right Ear:Type ALeft Ear:Type A Nonobliter ative otosclerosis involving oval window 41992674 H80.03 Conductive hearing loss of right ear 3566622128 H90.A11 [id number] MARIS [facility] [place] [address] [place] [address],[place] [address] [place] [address] 06/13/2024 12:50:36 06/16/2024 07:14:39 Mixed conductive and sensorineural hearing loss, bilateral 983404326 H90.6 [id number] ANA BAILON MD [facility] [address] [address] 08/04/2024 12:44:18 08/04/2024 16:11:45 Dysphagia 72889700 R13.14 53-year-ol d female presents today for follow-up after a swallow study. This did show flash laryngeal penetratio n, no evidence of reflux. Overall results reassuring . She has also had endoscopy. I recommende d taking the omeprazole in the morning. I recommende d continuing salt water gargles, nasal rinses, and Zyrtec. She may follow-up as needed. Gastroesop hageal reflux disease without esophagitis 950665796 K21.9 Health Concerns Section Related Observation LastModified by Organization Detai ls LastModified Time None Recorded Concern Status LastModified by Organization Details LastModified Time None Recorded Advance Directives Directive None Recorded Payers Insurance Date Sequence Insurance Name Policy Number Policy Burger Covered Member ID Burger Member ID Guarantor Name 08/06/2024 1 [facility] [id number] Lani Perlales [id number] Lani Auguste Notes Date Note Type Note Provider Name and Address Organization Details Recorded Time 03/25/2024 text/html 53-year-old female with history of otosclerosis. She's had bilateral [...] elected to continue with amplification back at [facility]. She comes back today for 3-year interval audiogram. Patient's current hearing aids are over 15 years old and she does not feel like they are working very well for her. DANNA CORNELL MD 100 [facility],[address], [address], [facility] 03/25/2024 15:10:36 06/13/2024 text/html Pt is an experienced user of hearing aids. The hearing aids she is wearing are about 15 years old Here today due to difficulty in her everyday life. 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 Discussed type, technology levels, and manufacturers of hearing aids. She is interested in phonak due to the waterproof option. Type of phone: did not ask. She was not to thrilled about the bluetooth option. She is looking into [facility] and seeing which level of technology she is going to be able to get. Is hoping for the premium. Ordering: [employer]ak in [place]. Shift Mgr: 1M Domes: closed small Other: Paid today: Due at fitting Total: MARIS BUSCH 100 [facility],[address], [address], [facility] 06/13/2024 13:19:36 08/04/2024 text/html Continues omeprazole once a day. Taking at night. Still some HB symptoms. BaS no reflux. Flash laryngeal penetration. PV: 53 year old presents for solid dysphagia and globus for 3 months. Sometimes coughs after eating as well. No issues with liquids.Has multiple medical problems including SLE, hypothyroidism and reflux. Takes 20mg omeprazole BID for reflux. 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 Most recent EGD and colonoscopy in October was overall normal perpatient report, 1 colon polyp was removed.Did have pneumonia last fall. Has not had recent swallow study. ANA BAILON MD 100 [facility] [address], [place], [address], [facility] - [facility] 08/06/2024 08:57:30 OBGyn Episode No OBEpisode recorded.
--- OUTSIDE RECORDS SUMMARY | 2025-09-02 12:00 | XMS_ITS | Encounter Summary ---
Author Organization [facility] Address [address] [place] [address] Phone Care Team Providers Care Equipment Oiler Name Role Phone Jamir Rubi MD Primary Care Provider [phone] Encounter Details Date Type Department Care Team (Late Contact Info) Description 08/21/2025 Orders Only [facility] Rheumatology [address] [place] [address] Provider, MD Ariel [address] [place], [place] [phone] Social History Tobacco Use Types Packs/Day Years Used Date Smoking Tobacco: Never Smokeless Tobacco: Never Alcohol Use Standard Drinks/Week Comments Not Currently [...] on file Sexual Orientation Not on file documented as of this encounter Plan of Treatment Upcoming Encounters Date Type Department Care Team (Late Contact Info) Description 11/26/2025 11:40 AM EST Office Visit [facility] Rheumatology [address] [place] [address] Aurelia Mondragon MD, MPH 22 [facility], [address] [place] [address] [email or web address] documented as of this encounter Procedures Procedure Name Priority Date/Time Associated Diagnosis Comments OUTSIDE LAB Routine 08/06/2025 3:15 PM EDT documented in this encounter Results * Outside Lab (08/06/2025 3:15 PM EDT) us Historical Provider LAB BLOOD ORDERABLES Maria Esther l Result documented in this encounter Visit Diagnoses Not on filedocumented in this encounter Care Teams Equipment Oiler Relationship Specialty Start Date End Date Jamir Rubi MD [address] [place] [address] PCP - General Internal Medicine 06/19/23 documented as of this encounter Additional Source Comments The information contained in this document represents components of the legal health record. It is not the complete legal health record.[facility]
--- OUTSIDE RECORDS SUMMARY | 2025-09-02 12:01 | XMS_ITS | Encounter Summary ---
Author Organization [employer] Address [address] [place] [address] Care Team Providers Care Tour Actor Name Role Phone Jamir Rubi MD Primary Care Provider [phone] Encounter Details Date Type Department Care Team (Late Contact Info) Description 11/03/[address] [facility] - Main Lab 299 [facility] [employer] [place] [phone] Anthony Olmstead MD [address] [phone] Atypical squamous cells of undetermined significance on [...] Description 11/10/2025 11:45 AM EST Office Visit [facility] Hematology Oncology [address] [place] [phone] Virginia Andrea MD [address] [place] [address] documented as of this encounter Procedures Procedure Name Priority Date/Time Associated Diagnosis Comments PAP SMEAR Routine 10/31/2024 12:00 AM EST Atypical squamous cells of undetermined significance on cytologic smear of cervix (ASC-US) documented in this encounter Results * Pap smear (10/31/2024 12:00 AM EST) Interpretation Negative for intraepithelial lesion or malignancy 11/04/2024 2:31 PM [facility] Clinical Information lsil 11/04/2024 2:31 PM [facility] General Categorization Negative 11/04/2024 2:31 PM [facility] Specimen Adequacy Satisfactory for evaluation, endocervical/casarez sformation zone component present 11/04/2024 2:31 PM [facility] Pap Methodology Liquid Based Pap Test 11/04/2024 2:31 PM [facility] Disclaimer The Pap test is a screening test which carries an inherent false negative rate. These test results should be correlated with the patient's clinical findings and history. This Pap test was processed using an automated screening system. Technical cytopathology services provided by [facility], at [address] [place] [address] (CLIA # [id number]/Kristen Cormier MD, Power Lineworker.) 11/04/2024 2:31 PM [facility] Console Pap Interpretation Reported 11/04/2024 2:31 PM [facility] Brushing/Spatula Cervix uteri structure / Unknown 10/31/2024 11/03/2024 8:14 AM EST us Anthony Olmstead MD LAB CYTOLOGY ORDERABLES Final Result [facility] [address] [place] [address], documented in this encounter Visit Diagnoses Diagnosis Atypical squamous cells of undetermined significance on cytologic smear of cervix (ASC-US) documented in this encounter Care Teams Tour Actor Relationship Specialty Start Date End Date Jamir Rubi MD [address] [place] [address] PCP - General Internal Medicine 11/25/24 documented as of this encounter
--- OUTSIDE RECORDS SUMMARY | 2025-09-02 12:01 | XMS_ITS | Clinical Summary ---
Author Organization [facility] Address [address] [address] Phone Care Team Providers Care Elephant Keeper Name Role Phone Jamir Rubi MD Primary Care Provider Allergies Active Allergy Reactions Criticality Noted Date Comments Acetaminophen-Codeine 01/20/2021 Adalimumab 01/17/2024 Sulfamethoxazole-Trimethoprim 2022 Codeine Nausea and/or Vomiting 01/20/2021 Azathioprine 10/09/2023 Losartan 01/17/2024 Menthol 12/11/2023 Acetaminophen Nausea and/or Vomiting 10/09/2023 Valsartan Anaphylaxis High 10/09/2023 Medications omeprazole (PRILOSEC) 20 MG capsule Take 1 capsule by mouth every morning. 07/08/20 Active clobetasol (TEMOVATE) 0.05 % external solution as needed. 09/13/20 Active cetirizine (ZYRTEC) 10 MG tablet Take 1 tablet by mouth every morning. 07/25/20 Active SYMBICORT 160-4.5 mcg/actuation inhaler Active aspirin 81 MG EC tablet Take 1 tablet by mouth. Active MAGNESIUM OXIDE ORAL Take 400 mg by mouth. 05/30/20 Active levothyroxine (SYNTHROID, LEVOTHROID) 200 MCG tablet [...] tablet Take 10 mg by mouth. 10/05/20 Active diphenhydrAMINE (BANOPHEN) 25 mg capsule Take [...] the muscle as needed. 10/23/20 23 Active SPIRIVA RESPIMAT 2.5 mcg/actuation mist for [...] mouth 2 (two) times a day. Active gabapentin (NEURONTIN) 300 MG capsuleIndications:Neur opathic pain TAKE 1 CAPSULE BY MOUTH NIGHTLY AT BEDTIME. 90 capsule 1 05/04/20 25 Active MOUNJARO 2.5 mg/0.5 mL PnIj subcutaneous pen Inject 2.5 mg under the skin once a week. 06/11/20 25 Active furosemide (LASIX) 20 MG tablet Take 40 mg by mouth daily. 06/01/20 25 Active senna 8.6 mg tablet TAKE 2 TABLETS BY MOUTH EVERY DAY AT BEDTIME NEEDED Active mycophenolate mofetil (CELLCEPT) 500 mg tabletIndications:Syste jaskaran lupus erythematosus, unspecified SLE type, unspecified organ involvement status Take 1 tablet (500 mg total) by mouth daily. 90 tablet 08/21/20 25 Active hydroxychloroquine (PLAQUENIL) 200 mg tabletIndications:Syste jaskaran lupus erythematosus, unspecified SLE type, unspecified organ involvement status Take 1 tablet (200 mg total) by mouth daily. 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 Together with ONE 5 mg tab for total daily dose 9 mg 120 tablet 08/21/20 25 Active hydroxychloroquine (PLAQUENIL) 200 mg tablet TAKE 2 TABLETS BY MOUTH DAILY FOR 90 DAYS 09/14/202024 Disconti nued(Reo rder) mycophenolate mofetil (CELLCEPT) 500 mg tablet Take 1 tablet by mouth. 2024 Disconti nued(Reo rder) hydroCHLOROthiazide (HYDRODIURIL) 25 MG tablet Take 25 mg by mouth daily. 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 60 tablet 07/17/20 25 2024 Jhi orlando(Reo rder) Active Problems Problem Noted Date Diagnosed Date Rotator cuff tendinitis, right 03/24/2025 Assessment & Plan (08/21/2025 9:34 AM EDT): Significantly improved though not completely resolved since 03/2025 steroid injection. Right groin pain 03/24/2025 Bilateral low back [...] in context of lupus Assessment & Plan (08/21/2025 9:30 AM EDT): Significantly mitigated by empiric gabapentin 300 mg nightly. Assessment & Plan (03/24/2025 5:37 PM EDT): Trial empiric gabapentin as above. On mycophenolate mofetil therapy 12/23/2024 Overview (12/23/2024): Outside labs 08/2024 quant TB neg HBsAg neg HCV Ab neg Assessment & Plan (08/21/2025 9:34 AM EDT): Routine monitoring labs are UTD Systemic lupus erythematosus 10/09/2023 Overview (03/24/2025): SLE / LN class II No belimumab hx Assessment & Plan (08/21/2025 9:34 AM EDT): Recent hospital admission detailed above, ? hemorrhagic CVA with plan for neurology evaluation and repeat MRI brain 11/2025. She remains compliant with low dose mycophenolate and hydroxychloroquine. Recent reported pattern of LE edema concerning for progressive renal impairment though most recent relevant labs are not available for my review today. She has renal f/u scheduled for next wk and I will try to coordinate care with her claims analyst moving forward, ? benefit of adding belimumab and/or increasing mycophenolate dose. Trial decrease prednisone from longstanding 10 mg daily to 9 mg daily. Updated labs with next routine lab draw. Assessment & Plan (03/24/2025 5:35 PM EDT): She is compliant with low-dose mycophenolate plus hydroxychloroquine. I have reviewed most recent labs available from [facility] hospitalization for asthma exacerbation earlier this [...] 10/2024 for SLE flare per patient though [facility] discharge summary is not available for [...] keratoconjunctivitis sic ca 10/09/2023 Assessment & Plan (08/21/2025 9:34 AM EDT): Ok to continue pilocarpine as needed. Assessment & Plan (07/01/2024 10:08 AM EDT): [...] Encounters Date Type Department Care Team Description 08/24/2025 Orders Only [facility] [address] [place] [address] [place] [address] Katie Del Cid CMA Systemic lupus erythematosus with glomerular disease, unspecified SLE type; Sjogren's syndrome with keratoconjunctivitis sicca; Systemic lupus erythematosus, unspecified SLE type, unspecified organ involvement status 08/21/2025 8:40 AM EDT Office Visit [facility] [address] [place] [address] [place] [address] Aurelia Mondragon MD, MPH Systemic lupus erythematosus, unspecified SLE type, unspecified organ involvement status (Primary Dx); Sjogren's syndrome with keratoconjunctivitis sicca; Systemic lupus erythematosus with glomerular disease, unspecified SLE type; Neuropathic pain; Rotator cuff tendinitis, right; On mycophenolate mofetil therapy 08/21/2025 Orders Only [facility] [address] [place] [address] [place] [address] ProviderAriel MD 08/21/2025 Telephone [facility] [address] [place] [address] [place] [address] Aurelia Mondragon MD, MPH Labs; Office Note 07/23/2025 Telephone [facility] [address] [place] [address] [place] [address] Aurelia Mondragon MD, MPH Forms & Paperwork 07/16/2025 Refill [facility] [address] [place] [address] [place] [address] Aurelia Mondragon MD, MPH Medication Refill from Last 3 Months Family History Medical [...] Sign Reading Time Taken Comments Blood Pressure 120/78 08/21/2025 8:32 AM EDT Pulse 88 08/21/2025 8:32 AM EDT Temperature - - Respiratory Rate - - Oxygen Saturation 98% 08/21/2025 8:32 AM EDT Inhaled Oxygen Concentration - - Weight 95.7 kg (211 lb) 08/21/2025 8:32 AM EDT w ith shoes Height 162.6 cm (5' 4.02 ) 08/21/2025 8:32 AM ED T Body Mass Index 36.2 08/21/2025 8:32 AM EDT Plan of Treatment Upcoming Encounters Date Type Department Care Team (Late st Contact Info) Description 11/26/2025 11:40 AM EST Office Visit [facility] Rheumat[facility] [address] [place] [address] Aurelia Mondragon MD, MPH [address] [place] [address], [address] [place] [address] [email or web address] Health Maintenance Due Date Last Done Comments [...] FOBT 2017 SIGMOIDOSCOPY 2017 VIRTUAL COLONOSCOPY 2017 RSV VACCINE (1 - Risk 50-74 years 1-dose series) 2022 INFLUENZA VACCINE (#1) 2025 08/12/2024, 2022 COVID-19 VACCINE ( season) 2025 12/06/2022, 09/30/2021, 02/12/2021, Additional history exists CREATININE LEVEL 11/18/2025 11/18/2024, , 09/10/2024, Additional history exists SCREENING FOR DIABETES 09/10/2027 09/10/2024 Adult Td,Tdap Booster 02/06/2034 02/07/2024, 023 SMOKING STATUS SCREENING (Once After 26 Yrs) Completed 08/21/2025 HEPATITIS A VACCINES Aged Out No long [...] Procedure Name Priority Date/Time Associated Diagnosis Comments CPK (CREATINE KINASE) Routine 08/21/2025 11:52 AM EDT Systemic lupus erythematosus with glomerular disease, unspecified SLE type SS-A/SS-B ANTIBODIES Routine 08/21/2025 11:52 AM EDT Sjogren's syndrome with keratoconjunctivitis sicca DOUBLE STRANDED DNA ANTIBODIES Routine 08/21/2025 11:52 AM EDT Systemic lupus erythematosus, unspecified SLE type, unspecified organ involvement status COMPLEMENT C4 Routine 08/21/2025 11:52 AM EDT Systemic lupus erythematosus, unspecified SLE type, unspecified organ involvement status COMPLEMENT C3 Routine 08/21/2025 11:52 AM EDT Systemic lupus erythematosus, unspecified SLE type, unspecified organ involvement status OUTSIDE LAB Routine 08/06/2025 3:15 PM EDT COMPREHENSIVE METABOLIC PANEL Routine 11/18/2024 12:09 PM EST Systemic lupus erythematosus, unspecified SLE type, unspecified organ involvement status On mycophenolate mofetil therapy from Last 3 Months or Most Recently Relevant to Health Maintenance Results * CPK (creatine kinase) (08/21/2025 11:52 AM EDT) Blood us Aurelia Mondragon MD, MPH LAB BLOOD ORDERABLES Fin al Result Performing Organization Address [facility] de Phone Number EXTERNAL NON-INTERFACED REF LAB * SS-A/SS-B antibodies (08/21/2025 11:52 AM EDT) Blood Aurelia Mondragon MD, MPH LAB BLOOD ORDERABLES Fin al Result Performing Organization Address [facility] de Phone Number EXTERNAL NON-INTERFACED REF LAB * Double stranded DNA antibodies (08/21/2025 11:52 AM EDT) Blood Result Eugenie Mondragon MD, MPH LAB BLOOD ORDERABLES Fin al Result Performing Organization Address [facility] de Phone Number EXTERNAL NON-INTERFACED REF LAB * Complement C4 (08/21/2025 11:52 AM EDT) Blood us Aurelia Mondragon MD, MPH LAB BLOOD ORDERABLES Fin al Result Performing Organization Address [facility] de Phone Number EXTERNAL NON-INTERFACED REF LAB * Complement C3 (08/21/2025 11:52 AM EDT) Blood Result Eugenie Mondragon MD, MPH LAB BLOOD ORDERABLES Fin al Result Performing Organization Address [facility]/State/ZIP Co de Phone Number EXTERNAL NON-INTERFACED REF LAB * Outside Lab (08/06/2025 3:15 PM EDT) us Historical Provider LAB BLOOD ORDERABLES Maria Esther l Result * (ABNORMAL) Comprehensive metabolic panel (11/18/2024 12:09 PM EST) SODIUM 140 133 - 146 mmol/L [facility] POTASSIUM 3.8 3.3 - 5.1 mmol/L [facility] CHLORIDE 101 96 - 108 mmol/L [facility] CO2 29 21 - 35 mmol/L [facility] BUN 18 6 - 19 mg/dL [facility] CREATININE 0.70 0.5 - 1.5 mg/dL [facility] GLUCOSE 179(H) 70 - 99 mg/dL [facility] ALBUMIN 3.8(L) 3.9 - 4.8 g/dL [facility] TOTAL PROTEIN 8.4(H) 6.5 - 8.0 g/dL [facility] CALCIUM 9.2 8.4 - 10.3 mg/dL [facility] ALKALINE PHOSPHATASE 98 39 - 117 U/L [facility] TOTAL BILIRUBIN 0.3 0.0 - 1.2 mg/dL [facility] AST 39(H) 0 - 37 U/L [facility] ALT 44(H) 0 - 40 U/L [facility] GLOBULIN 4.6 1 - 4.8 g/dL [facility] EGFR 104 >59 mL/min/1.7 3m2 [facility] Comment:Estimated glomerular filtration rate calculated using the CKD-EPI refit equation. ANION GAP 14 10 - 20 mmol/L [facility] Blood 11/18/2024 12:0 9 PM EST 11/18/2024 12:12 PM EST Aurelia Mondragon MD, MPH LAB BLOOD ORDERABLES Fin al Result [facility] [address] [place] [address] from Last 3 Months or Most Recently Relevant to Health Maintenance Insurance [facility] [address] [place] [id number] [place], [place] [id number] [facility] Care Teams Elephant Keeper Relationship Specialty Start Date End Date Jamir Rubi MD [address] [place] [address] PCP - General Internal Medicine 06/19/23 Additional Source Comments The information contained in this document represents components of the legal health record. It is not the complete legal health record.[facility]
--- OUTSIDE RECORDS SUMMARY | 2025-09-02 12:01 | XMS_ITS | Patient Health Record ---
Author Organization [facility] Address [address] [place], [place] [id number] Care Team Providers Care Neck Band Setter Name Role Phone JOVITA LONGORIA Primary Care Provider BLUE DIAMOND, NURSING Unavailable [phone] SUKUMAR RADFORD Unavailable [phone] TIMOTHY ABBOTT Unavailable [phone] ALLERGIES Allergen (clinical drug ingredient) Drug/Non Drug [...] Allergy Activ e REASON FOR REFERRAL Reason diabetes, hypothyroi dism Referral Organization [facility] Referring Provider First Name JOVITA Referring Provider Last Name SWATI Referring Provider Speciality Internal M edicine Referred Provider SELAM DUNCAN Referred Provider Specialty Endocrinolog y General Notes Michelle NIELSEN Call Ce nter 12/05/2024 02:21:12 PM >Pt asking for a referral as she has not seen this office since 2019, phone [phone]. , Fax unknown. Referral needed prior to appt.[facility]ORALES [facility]ly [facility] 12/10/2024 01:55:08 PM > the patient called in and said that Dr. Duncan's office hasn't received her referral request yet. please fax MORALES ABDALLA Lori P Admin 12/10/2024 02:47:04 PM > faxed medical referral and notes to [facility] at [phone]>also faxed hospital record from last month separately to same number, Kristine NIELSEN [employer]n [employer] 09/01/2025 08:36:00 AM > 06/11/25 note in chart and reviewed by provider. Referral Priority Routine Referral Appointment Date 06/11/2025 Reason Follow-up consultati on referral was sent [facility] for recurrent rectal bleeding Diagnosis 1 Rectal bleeding (K62 .5) Referral Organization [facility] Referring Provider First Name JOVITA Referring Provider Last Name SWATI Referring Provider [facility] Referral Priority Routine Reason Follow-up consultati on Dr. Zully Iglesias hematology sent copy of his last 4 months of labs and my note to him significant anemia and thrombocytopenia Diagnosis 1 Anemia, unspecified (D64.9) Referral Organization [facility] Referring Provider First Name JOVITA Referring Provider Last Name SWATI Referring Provider [facility] Referral Priority Urgent Reason Consultation Dr. mathew blandon neurology [place] abnormal brain arm MRI send my last note and the MRI of the brain to her Diagnosis 1 Abnormal brain MRI ( R90.89) Referral Organization [facility] Referring Provider First Name JOVITA Referring Provider Last Name SWATI Referring Provider [facility] Referral Priority Routine Reason Referral to [facility] cardiology Dr. ohara for cardiomyopathy Diagnosis 1 Other cardiomyopathi es (I42.8) Referral Organization [facility] Referring Provider First Name JOVITA Referring Provider Last Name SWATI Referring Provider [facility] Referral Priority Routine MEDICATIONS Medication SIG (Take, Route, Frequency, Duration) Notes Start Date End Date Status Hydroxychloroquine Sulfate 2 00 MG 2 tablets Orally once a day Active metFORMIN HCl 500 MG 2 tabs AM, 1 tab PM orally twice a day Active Mycophenolate Mofetil 500 MG 1 tablet or ally once daily Active Omeprazole 20 MG 1 capsule 30 minutes before morning meal Orally twice a day Active Tylenol 8 Hour Arthritis Leonela n 650 MG 2 tablets as needed Orally every 8 hrs Active MiraLax 17 GM/SCOOP 1 scoop mixed with 8 ounces of fluid Orally Once a day Active Fiber Adult Gummies 2 GM 3 gummies Orall y once a day Active Senna 8.6 MG 2 tablets at bedtime as needed Orally Once a day for 30 day(s) Active amLODIPine Besylate 10 MG 1 tablet Orall y Once a day for 90 days Active Albuterol Sulfate (2.5 MG/3M L) 0.083% 3 mL as needed Inhalation every 6 hrs Active Albuterol Sulfate 108 (90 Base) MCG/ACT 2 puff as needed Inhalation every 4 hrs prn Active cloNIDine HCl 0.1 MG 1 tablet Orally 3 i n the am and 3 in the pm Active Spiriva Respimat 2.5 MCG/ACT 2 puffs Inh alation Once a day Active Symbicort 160-4.5 MCG/ACT 2 puff(s) inha led 2 times a day Active Carvedilol 25 MG 1 tablet with food Orally Twice a day Active predniSONE 10 MG 1 tablet with food o r milk Orally Once a day 9 mg 03/10/2025 Active Cetirizine HCl 10 MG 1 tablet Orally Twi ce a day Active Gabapentin 300 MG 1 capsule Orally Onc e a day for 30 day(s) Active Furosemide 20 MG 1 tablet Orally Once a day 04/24/2025 Active Levothyroxine Sodium 200 MCG 1 tablet in the morning on an empty stomach Orally Once a day Active Vitamin B-12 1000 MCG 1 tablet under the tongue and allow to dissolve Sublingual Once a day 05/09/2024 Active Magnesium Oxide -Mg Suppleme nt 400 (240 Mg) MG 1 tablet with food Orally Once a day Active Iron 25 MG as directed Orally qod Active Heather-Zalma [phone] MG 2 tablets dissolved in 4 ounces of water as needed Orally Twice a day Active Aspirin EC 81 MG 1 tab(s) orally once a day Active Atorvastatin Calcium 10 MG 1 tablet Oral ly Once a day 12/25/2023 Active Banophen 25 MG 1 tablet at bedtime as needed Orally Q 6 hrs. prn Active EPINEPHrine 0.3 MG/0.3ML as directed Inj ection as directed 10/23/2023 Active IMMUNIZATIONS Vaccine Route Administration Date Status Comme nts FLU- FLUVIRIN, PRE-FILLED SYRINGE 0.5 ml IM Intramuscular 08/01/2013 Administered Influenza IM Intramuscular 10/07/2009 Administered Influenza IM Intramuscular 08/12/2010 Administered Influenza IM Intramuscular 08/31/2011 Administered Influenza IM Intramuscular 08/06/2012 Administered Influenza, Adult non Medicare IM Intramuscular 08/21/2014 Administered Influenza, Adult non Medicare IM Intramuscular 07/27/2015 Administered Influenza, Flublok IM Intramuscular 07/31/2023 Administere d Influenza, Flublok IM Intramuscular 08/12/2024 Administere d Influenza, Flublok IM Intramuscular 09/01/2025 Administere d Influenza, Fluzone QUAD, 3+ yrs, IM Intramuscular 08/28/2018 Administered Td (Tetanus Diphtheria) IM Intramuscular 02/07/2024 Admini stered SOCIAL HISTORY Tobacco Use: Social History Observation Description Date Details (start date - stop date) Never Smoker NA - NA Sex Assigned At : Social History Observation Description Sex Assigned At Unknown Smoking Question Answer Notes Are you a: never smoker Section Notes: ''''''' PROBLEMS Problem Type ICD Code Onset Dates Problem Status W/U Status Risk SNOMED Code Notes Problem Hypertension (401.9) Active confirmed Hypertension (44028111) Problem Asthma (493.90) Active confirmed Asthma (875138540) Problem Joint pain, lower leg or knee (719.46) Active confirmed Problem Paresthesia (782.0) Active confirmed Paresthesia (64407575) Problem Dyspnea (786.09) Active confirmed Dyspn ea (878340275) Problem Hypothyroidism NOS (244.9) Active confirmed Hypothyroidism (75648076) Problem Lymphadenopathy (785.6) Active confirmed Lymphadenopathy (52957916) Problem DERMATITIS NOS (692.9) Active confirmed Dermatitis (207140857) Problem SKIN DISORDER NOS (709.9) Active confirmed Skin disorder (62084375) Problem VACCIN FOR INFLUENZA (V04.81) Active confirmed Needs inf luenza immunization (449772963) Problem 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) Active confirmed Temporomandibul ar pqtgb-fgzb-hykymffc ion syndrome (954082542) Problem 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 Organic insomni a (70733606) Problem Essential (primary) hypertension (I10) Active confirmed Essential hypertension (71145659) Problem Hypothyroidism, unspecified (E03.9) Active confirmed Hypothyroidism (61146958) Problem Medication monitoring encounter (Z51.81) Active confirmed Medicatio n monitoring (913351899) Problem MARCO (obstructive sleep apnea) (G47.33) Active confirmed Obstructive sle ep apnea syndrome (51527523) Problem Anemia, unspecified (D64.9) Active confirmed Anemia (123717877) Problem Asthma (J45.909) Active confirmed Asthm a (493881131) Problem Fatty liver (K76.0) Active confirmed 297458823 Problem COPD exacerbation (J44.1) Active confirmed 356589940 Problem Trochanteric bursitis, right hip (M70.61) Active confirmed 20141417792955319 Problem Disorder of lipoprotein metabolism, unspecified (E78.9) Active confirmed Disorder of lipoprotein storage and metabolism (disorder) (659440083) Problem Hypocalcemia (E83.51) Active confirmed 6962622 Problem Other cardiomyopathies (I42.8) Active confirmed 45273435 Problem Encounter for immunization (Z23) Active confirmed Vaccinati on given (699331112) Problem Encounter for long-term (current) use of other medications (Z79.899) Active confirmed 041825091 Problem 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) Active confirmed 148403329 Problem Moderate persistent asthma with acute exacerbation (J45.41) Active confirmed 627367671 Problem Blood loss anemia (D50.0) Active confirmed 338351347 Problem Sjogrens syndrome (M35.00) Active confirmed 80967320 Problem Trochanteric bursitis of left hip (M70.62) Active confirmed 505921769445567 Problem 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) Active confirmed 683517221 Problem Anemia, chronic disease (D63.8) Active confirmed 891882099 Problem Chronic anemia (D64.9) Active confirmed 099952202 Problem Iron deficiency anemia, unspecified iron deficiency anemia type (D50.9) Active confirmed 38107807 Problem Noncompliance (Z91.19) Active confirmed 2546942 Problem Biological false positive RPR test (R76.8) Active confirmed 170409319 Problem Positive cardiolipin antibodies (R76.8) Active confirmed 651520268 Problem Kienbock's avascular necrosis of lunate, 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) Active confirmed 422321584 Problem Type 2 diabetes mellitus with hyperglycemia, without long-term current use of insulin (E11.65) Active confirmed 14861715 Problem Type 2 diabetes mellitus without complication, without long-term current use of insulin (E11.9) Active confirmed 461081312 Problem Hepatitis, autoimmune (K75.4) Active confirmed 187751983 Problem Systemic lupus erythematosus, unspecified SLE type, unspecified organ involvement status (M32.9) Active confirmed 35843976 Problem Immunosuppressed status (D84.9) Active confirmed 72406611 VITAL SIGNS Blood pressure diastolic 74 mm Hg 09/01/2025 Height 64 in 09/01/2025 Blood pressure systolic 112 mm Hg 09/01/2025 Weight 213 lbs 09/01/2025 BMI 36.56 kg/m2 09/01/2025 Encounters Encounter Location Date Provider Diagnosis [facility] [address] [place] [address] 09/02/2024 NURSING BLUE DIAMOND BP check Z01.30 [facility] [address] [place] [phone] 09/02/2024 JOVITA LONGORIA [facility] [address] [place] [address] 09/10/2024 JOVITA LONGORIA [address] [address] 09/10/2024 JOVITA LONGORIA [place] [id number] 10/22/2024 JOVITA LONGORIA [facility] [address] [place] [address] 10/23/2024 JOVITA LONGORIA Systemic lupus erythematosus M32.9 ; Sjogrens syndrome M35.00 ; Essential (primary) hypertension I10 ; Type 2 diabetes mellitus without complications E11.9 ; Obstructive sleep apnea (adult) (pediatric) G47.33 ; Asthma J45.909 ; Disorder of lipoprotein metabolism, unspecified E78.9 and Night sweats R61 [address] [address] 10/24/2024 JOVITA LONGORIA [facility] [address] [place] [address] 10/24/2024 JOVITA [facility] [address] [place] [address] 11/24/2024 JOVITA [facility] [address] [place] [address] 11/24/2024 JOVITA LONGORIA Essential (primary) hypertension I10 ; Type 2 diabetes mellitus without complications E11.9 ; Obstructive sleep apnea (adult) (pediatric) G47.33 ; Fatty liver K76.0 ; Asthma J45.909 ; Disorder of lipoprotein metabolism, unspecified E78.9 ; Elevated sed rate R70.0 and Acute cough R05.1 [facility] [address] [place] [address] 11/24/2024 JOVITA LONGORIA [facility] [address] [place], [place] [phone] 11/24/2024 JOVITA LONGORIA Systemic lupus erythematosus M32.9 [facility] [address] [place], [place] [phone] 11/25/2024 JOVITA LONGORIA [facility] [address] [place], [place] [id number] 11/28/2024 JOVITA LONGORIA [facility] [address] [place], [place] [address] 12/05/2024 JOVITA LONGORIA [address] 12/10/2024 JOVITA LONGORIA [place] [phone] 12/16/2024 JOVITA LONGORIA [address] 12/16/2024 [facility] Hospital discharge follow-up Z09 ; Systemic lupus erythematosus M32.9 ; Essential (primary) hypertension I10 ; Sjogren's disease 710.2 ; Type 2 diabetes mellitus without complications E11.9 and Pleural effusion J90 [place] [id number] 12/17/2024 JOVITA LONGORIA Anemia, chronic dise ase D63.8 and Chronic anemia D64.9 [place] [id number] 12/17/2024 JOVITA LONGORIA [place] [address] 12/17/2024 JOVITA LONGORIA Hypocalcemia E83.51 [place] [id number] 12/21/2024 JOVITA LONGORIA Low magnesium level R79.0 [place] [id number] 01/20/2025 NURSING BLUE DIAMOND BP check Z01.30 [place] [id number] 01/20/2025 JOVITA LONGORIA [address] [address] 01/21/2025 NURSING [facility] [place] [address] 02/04/2025 NURSING BLUE DIAMOND BP check Z01.30 [place] [id number] 02/11/2025 JOVITA LONGORIA Low magnesium level R79.0 ; Systemic lupus erythematosus M32.9 ; Sjogrens syndrome M35.00 ; Essential (primary) hypertension I10 ; Type 2 diabetes mellitus without complications E11.9 ; Obstructive sleep apnea (adult) (pediatric) G47.33 ; Fatty liver K76.0 ; Asthma J45.909 ; Disorder of lipoprotein metabolism, unspecified E78.9 and Hypothyroidism, unspecified E03.9 [address] 02/19/2025 JOVITA LONGORIA Sjogrens syndrome M3 5.00 ; Raynauds phenomenon without gangrene I73.00 ; Essential (primary) hypertension I10 ; Type 2 diabetes mellitus without complications E11.9 ; Fatty liver K76.0 ; Disorder of lipoprotein metabolism, unspecified E78.9 ; Other proteinuria R80.8 and Rectal bleeding K62.5 [place] [address] 02/19/2025 JOVITA LONGORIA Angioedema, subseque nt encounter T78.3XXD [address] 02/20/2025 JOVITA LONGORIA Anemia, unspecified type D64.9 [address] 02/20/2025 JOVITA LOGNORIA Urinary tract infect ion in female N39.0 [place] [id number] 03/04/2025 SUKUMAR RADFORD [place] [address] 03/04/2025 SUKUMAR RADFORD Left otitis media, unspecified otitis media type H66.92 and Essential (primary) hypertension I10 [address] 03/05/[address] [address] 03/09/2025 JOVITA LONGORIA [place] [id number] 03/09/2025 SUKUMAR RADFORD [place] [id number] 03/10/2025 [facility] discharge follow-up Z09 ; Moderate persistent asthma with acute exacerbation J45.41 ; Parainfluenza B34.8 ; Hematochezia K92.1 ; Chronic constipation K59.09 ; Chronic anemia D64.9 ; Anemia, chronic disease D63.8 ; Systemic lupus erythematosus, unspecified SLE type, unspecified organ involvement status M32.9 ; Type 2 diabetes mellitus with hyperglycemia, without long-term current use of insulin E11.65 ; Essential (primary) hypertension I10 and Left otitis media, unspecified otitis media type H66.92 [place] [address] 03/25/2025 JOVITA LONGORIA Anemia, unspecified D64.9 [place] [id number] 04/24/2025 JOVITA LONGORIA [place] [id number] 04/24/2025 TIMOTHY SCAR Bilateral lower extremity edema R60.0 ; Weight gain R63.5 and Essential (primary) hypertension I10 [address] [address] 04/24/2025 JOVITA LONGORIA [address] 04/27/2025 JOVITA LONGORIA Bilateral lower extremity edema R60.0 ; Systemic lupus erythematosus M32.9 ; Essential (primary) hypertension I10 ; Type 2 diabetes mellitus without complications E11.9 ; Obstructive sleep apnea (adult) (pediatric) G47.33 and Fatty liver K76.[address] [address] 04/27/2025 JOVITA LONGORIA [place] [id number] 04/28/2025 JOVITA LONGORIA Anemia, unspecified D64.9 [place] [id number] 04/29/2025 JOVITA LONGORIA Essential (primary) hypertension I10 and Anemia, unspecified D64.[address] [address] 06/01/2025 JOVITA LONGORIA [facility] [address] [address] 06/03/2025 JOVITA LONGORIA [facility] [address] [address] 06/03/2025 JOVITA LONGORIA [place] [id number] 06/09/2025 [facility] discharge follow-up Z09 ; COPD exacerbation J44.1 ; Symptomatic anemia D64.9 ; Internal hemorrhoids K64.8 ; Other constipation K59.09 ; Blood loss anemia D50.0 and RUQ abdominal pain R10.[address] [address] 07/21/2025 JOVITA LONGORIA [address] [address] 07/30/2025 JOVITA LONGORIA [address] [address] 07/31/2025 JOVITA LONGORIA [address] [address] 08/04/2025 JOVITA LONGORIA Systemic lupus erythematosus M32.9 ; Raynauds phenomenon without gangrene I73.00 ; Essential (primary) hypertension I10 ; Type 2 diabetes mellitus without complications E11.9 ; Obstructive sleep apnea (adult) (pediatric) G47.33 ; Disorder of lipoprotein metabolism, unspecified E78.9 ; Asthma J45.909 ; Hypothyroidism, unspecified E03.[address] R93.[address] [address] 08/05/2025 JOVITA LONGORIA Mild anemia D64.[address] [address] 08/05/2025 JOVITA LONGORIA Hypothyroidism, unspecified E03.[address] [address] 08/07/2025 JOVITA LONGORIA B12 deficiency E53.8 and Chronic anemia D64.9 [facility] [address] [place] [address] 08/07/2025 JOVITA LONGORIA [address] [address] 08/11/2025 JOVITA SWATI [address] [address] 08/11/2025 JOVITA LONGORIA [address] [address] 08/11/2025 JOVITA LONGORIA [address] [address] 08/13/2025 JOVITA SWATI [address] [address] 08/20/2025 JOVITA LONGORIA [address] [address] 08/22/2025 JOVITA LONGORIA [address] [address] 09/01/2025 JOVITA LONGORIA Other cardiomyopathi es I42.8 ; Encounter for screening mammogram for malignant neoplasm of breast Z12.31 ; Systemic lupus erythematosus M32.9 ; Sjogrens syndrome M35.00 ; Essential (primary) hypertension I10 ; Type 2 diabetes mellitus without complications E11.9 ; Obstructive sleep apnea (adult) (pediatric) G47.33 ; Fatty liver K76.0 ; Anemia, unspecified D64.9 and Abnormal brain MRI R90.89 [place] [id number] 09/01/2025 [place] [id number] 09/01/2025 NURSING BLUE DIAMOND Encounter for immunization Z23 [address] [address] 09/02/2025 JOVITA LONGORIA Hypothyroidism, unspecified E03.9 and Anemia, unspecified D64.9 ASSESSMENTS Encounter Date Diagnosis Assessment Notes Treatment Notes Treatment Clinical Notes Section Notes 02/11/2025 Systemic lupus erythematosus (ICD-10 - M32.9) 02/11/2025 Low magnesium level (ICD-10 - R79.0) 09/02/2024 BP check (ICD-10 - Z01.30) Pt denies any adverse effects from medication, takes bp at home. Please see telephone encounter for providers collaboration 10/23/2024 Systemic lupus erythematosus (ICD-10 - M32.9) Continue hydroxychloroquine, mycophenolate, and prednisone taper, then when the taper is done remain on 10 mg a day. Follow-up with Dr. Kwok. 10/23/2024 Sjogrens syndrome (ICD-10 - M35.00) Stable above 11/24/2024 Essential (primary) hypertension (ICD-10 - I10) Blood pressure stable well-controlled no change in therapy. Continue clonidine amlodipine carvedilol and hydrochlorothiazide walk 30 minutes a day no added salt diet 11/24/2024 Systemic lupus erythematosus (ICD-10 - M32.9) 12/16/2024 Systemic lupus erythematosus (ICD-10 - M32.9) Stable continue above medication 12/16/2024 Hospital discharge follow-up (ICD-10 - Z09) Hospital notes and discharge summary reviewed in full. Patient has follow-up with pulmonary in 1 week. Has chronic small pleural effusions. CT angiogram did not reveal pulmonary embolus. She is finished her antibiotic as of today. Recheck CBC check EKG increase fluid intake 12/17/2024 Anemia, chronic disease (ICD-10 - D63.8) 12/17/2024 Chronic anemia (ICD-10 - D64.9) 12/17/2024 Hypocalcemia (ICD-10 - E83.51) 01/20/2025 BP check (ICD-10 - Z01.30) Please see telephone encounter for providers collaboration 12/21/2024 Low magnesium level (ICD-10 - R79.0) 02/04/2025 BP check (ICD-10 - Z01.30) Please see telephone encounter for providers collaboration 02/19/2025 Raynauds phenomenon without gangrene (ICD-10 - I73.00) Stable no active symptoms at the present time 02/19/2025 Sjogrens syndrome (ICD-10 - M35.00) Stable follow-up rheumatology continue present medications check labs 09/01/2025 Other cardiomyopathies (ICD-10 - I42.8) Consultation [facility] cardiology. Dr. Ohara I spoke with after her echo and he [...] months therefore we will track down at [facility] 02/19/2025 Angioedema, subsequent encounter (ICD-10 - T78.3XXD) 02/20/2025 Anemia, unspecified type (ICD-10 - D64.9) 02/20/2025 Urinary tract infection in female (ICD-10 - N39.0) 03/04/2025 Essential (primary) hypertension (ICD-10 - I10) BP remains above goal so will increase dose of clonidine to 0.3 mg both a.m. & p.m. 03/04/2025 Left otitis media, unspecified otitis media type (ICD-10 - H66.92) Risks/benefits of medication reviewed. Can use tylenol as directed pain for pain/fever 03/10/2025 Hospital discharge follow-up (ICD-10 - Z09) Hospital records and data reviewed. Medication reconciliation was completed with facility discharge summary. 03/25/2025 Anemia, unspecified (ICD-10 - D64.9) 04/24/2025 Weight gain (ICD-10 - R63.5) See bilateral lower extremity edema plan. 04/24/2025 Bilateral lower extremity edema (ICD-10 - R60.0) Case discussed with Dr. Crow. Labs ordered. Echocardiogram ordered. Stop hydrochlorothiazide. Start furosemide (Lasix) 20 mg 1 tablet daily in the morning. Continue all other medications as prescribed. Compression stockings daily. Elevate feet is much as possible. Low-salt, low-fat, lean protein, high-fiber diet. Follow-up with Dr. Longoria in 1 week for recheck on blood pressure and edema. Return sooner as needed. Go to ER if develop chest pain, shortness of breath or other worsening symptoms. 04/27/2025 Systemic lupus erythematosus (ICD-10 - M32.9) Stable follow-up rheumatology 04/27/2025 Bilateral lower extremity edema (ICD-10 - R60.0) Resolved edema. Will check cardiac echo check chest x-ray BNP normal Lasix possibly every other day for now 04/28/2025 Anemia, unspecified (ICD-10 - D64.9) 04/29/2025 Essential (primary) hypertension (ICD-10 - I10) 04/29/2025 Anemia, unspecified (ICD-10 - D64.9) 06/09/2025 COPD exacerbation (ICD-10 - J44.1) Currently stable without reexacerbation. Will be following up with pulmonology as scheduled in July. Will be continuing on her inhalers and asthma treatments as prescribed. Will continue to monitor. 06/09/2025 Hospital discharge follow-up (ICD-10 - Z09) Reviewed hospital discharge summary and test results. Reviewed patient's current specialist follow-up scheduled. Hemoglobin at time of discharge was 8.1. It was 6.7 at time of admission. Hematocrit was 28.4. Patient is already seeing hematology and will be following up with them. Medications were reconciled. 08/04/2025 Systemic lupus erythematosus (ICD-10 - M32.9) Stable. Follow-up with rheumatology continue above medication check routine labs 08/04/2025 Raynauds phenomenon without gangrene (ICD-10 - I73.00) Stable secondary to autoimmune phenomenon connective tissue disease. 08/05/2025 Mild anemia (ICD-10 - D64.9) 08/05/2025 Hypothyroidism, unspecified (ICD-10 - E03.9) 08/07/2025 B12 deficiency (ICD-10 - E53.8) 08/07/2025 Chronic anemia (ICD-10 - D64.9) 09/01/2025 Encounter for immunization (ICD-10 - Z23) Influenza vaccine administered. Patient counseled and VIS sheet given. 09/02/2025 Hypothyroidism, unspecified (ICD-10 - E03.9) 09/02/2025 Anemia, unspecified (ICD-10 - D64.9) 02/11/2025 Sjogrens syndrome (ICD-10 - M35.00) 03/10/2025 Moderate persistent asthma with acute exacerbation (ICD-10 - J45.41) She has improved, O2 sat 98% on ra. She is doing nebulizer every 4-6 hrs, will complete prednisone dose, using daily inhalers as prescribed 04/24/2025 Essential (primary) hypertension (ICD-10 - I10) Will continue with current blood pressure medications. Discussed diet and exercise. See bilateral lower extremity plan for further details. Will follow-up with Dr. Longoria in 1 week. 09/01/2025 Systemic lupus erythematosus (ICD-10 - M32.9) Stable follow-up with rheumatology continue mycophenolate continue prednisone and decreasing dosage presently at 9 mg plans to slowly taper over the next 6 months 04/27/2025 Essential (primary) hypertension (ICD-10 - I10) Continue present regimen of medication. Blood pressure well-controlled 02/19/2025 Essential (primary) hypertension (ICD-10 - I10) Increase to 0.3 mg in the a.m. and 0.2 mg in the p.m. of clonidine. Nursing blood pressure check in 2 to 3 weeks. If still not at goal we will increase to 0.3 twice daily continue other meds as ordered check urinalysis check basic metabolic profile check TSH 06/09/2025 Symptomatic anemia (ICD-10 - D64.9) Patient is encouraged to be consistent with her bowel regimen and hemorrhoid treatments. Plenty of liquids. Increase iron in diet. Follow-up with hematology as scheduled. 08/04/2025 Essential (primary) hypertension (ICD-10 - I10) Blood pressure stable no orthostatic changes noted no change in medication continue present therapy 12/16/2024 Essential (primary) hypertension (ICD-10 - I10) Blood pressure well-controlled check EKG normal sinus rhythm no change blood pressure erratic we will check a 24-hour blood pressure monitor to get a better assessment 10/23/2024 Essential (primary) hypertension (ICD-10 - I10) Suboptimal control on 4 different medications. Will increase clonidine to 0.2 mg twice daily monitor blood pressure at home told to call in the next couple weeks if blood pressure systolic is greater than 130/80 11/24/2024 Type 2 diabetes mellitus without complications (ICD-10 - E11.9) Diet exercise weight loss. Ophthalmology q. year. Continue metformin check A1c goal less than 7.5 03/10/2025 Parainfluenza (ICD-10 - B34.8) Resolved 04/27/2025 Type 2 diabetes mellitus without complications (ICD-10 - E11.9) Check A1c goal less than 7.5 ophthalmology q. year other meds as ordered 06/09/2025 Internal hemorrhoids (ICD-10 - K64.8) Encouraged consistency with bowel regimen and to avoid constipation. Make sure to do hemorrhoid treatments as discussed daily until bleeding resolves. Follow-up with GI as scheduled. Stay well-hydrated. 08/04/2025 Type 2 diabetes mellitus without complications (ICD-10 - E11.9) Continue above medication check A1c check blood sugar no polyuria polydipsia no ophthalmologic or neurologic symptoms 02/11/2025 Essential (primary) hypertension (ICD-10 - I10) 10/23/2024 Type 2 diabetes mellitus without complications (ICD-10 - E11.9) Diet exercise weight management continue above medication recheck in 1 month 11/24/2024 Obstructive sleep apnea (adult) (pediatric) (ICD-10 - G47.33) Continue CPAP therapy 12/16/2024 Sjogren's disease (ICD9-CM - 710.2) 09/01/2025 Sjogrens syndrome (ICD-10 - M35.00) Stable 02/19/2025 Type 2 diabetes mellitus without complications (ICD-10 - E11.9) No polyuria polydipsia check A1c goal less than 7.5 diet exercise weight loss recommended 02/19/2025 Fatty liver (ICD-10 - K76.0) Stable recheck in 4 months does not drink. No significant symptoms at the present time 11/24/2024 Fatty liver (ICD-10 - K76.0) No alcohol. Check LFTs history of autoimmune hepatitis followed GI 08/04/2025 Obstructive sleep apnea (adult) (pediatric) (ICD-10 - G47.33) Continue CPAP therapy 04/27/2025 Obstructive sleep apnea (adult) (pediatric) (ICD-10 - G47.33) Continue CPAP 09/01/2025 Essential (primary) hypertension (ICD-10 - I10) Stable blood pressure well-controlled no change in therapy 10/23/2024 Obstructive sleep apnea (adult) (pediatric) (ICD-10 - G47.33) Continue CPAP therapy 12/16/2024 Type 2 diabetes mellitus without complications (ICD-10 - E11.9) Diet weight loss exercise recommended check A1c every 3 to 4 months. Continue above medication metformin 06/09/2025 Other constipation (ICD-10 - K59.09) See internal hemorrhoid plan. 03/10/2025 Hematochezia (ICD-10 - K92.1) 02/11/2025 Type 2 diabetes mellitus without complications (ICD-10 - E11.9) 11/24/2024 Asthma (ICD-10 - J45.909) Stable by physical exam review of systems 09/01/2025 Type 2 diabetes mellitus without complications (ICD-10 - E11.9) A1c 6.0 recheck every 3 to 4 months. No polyuria polydipsia ophthalmologic symptoms ophthalmology exam q. year continue statin therapy and other meds as above 12/16/2024 Pleural effusion (ICD-10 - J90) Will require follow-up with pulmonary and follow-up with either CT or chest x-ray to monitor pleural effusion 10/23/2024 Asthma (ICD-10 - J45.909) Stable physical exam good air movement oxygen level adequate 97% 02/19/2025 Disorder of lipoprotein metabolism, unspecified (ICD-10 - E78.9) Continue statin therapy check lipid profile LDL goal less than 100 08/04/2025 Disorder of lipoprotein metabolism, unspecified (ICD-10 - E78.9) 06/09/2025 Blood loss anemia (ICD-10 - D50.0) See symptomatic anemia plan. 04/27/2025 Fatty liver (ICD-10 - K76.0) Stable check LFTs follow-up with gastroenterology patient does not drink. Has history of autoimmune hepatitis 03/10/2025 Chronic constipation (ICD-10 - K59.09) Discussed constipation mgt, adequate fiber, water, movement and above medications prn. Follow up with Dr. Zhou 02/11/2025 Obstructive sleep apnea (adult) (pediatric) (ICD-10 - G47.33) 06/09/2025 RUQ abdominal pain (ICD-10 - R10.11) Ultrasound ordered. Lab work and hospital showed normal liver studies and bilirubin and alk phos. Further treatment and/or evaluation will be based on test results. 09/01/2025 Obstructive sleep apnea (adult) (pediatric) (ICD-10 - G47.33) Continue CPAP therapy 08/04/2025 Asthma (ICD-10 - J45.909) 02/19/2025 Other proteinuria (ICD-10 - R80.8) Check UA blood pressure control 03/10/2025 Chronic anemia (ICD-10 - D64.9) Will check CBC every 2 weeks for now. She has follow up with Dr. Zhou. Will make sure she also has follow up with hematology 02/11/2025 Fatty liver (ICD-10 - K76.0) 10/23/2024 Disorder of lipoprotein metabolism, unspecified (ICD-10 - E78.9) Continue above medication lipids at goal 11/24/2024 Disorder of lipoprotein metabolism, unspecified (ICD-10 - E78.9) Continue statin therapy check lipid profile LDL goal less than 100 10/23/2024 Night sweats (ICD-10 - R61) Question secondary to lupus. Will check a CBC sed rate basic metabolic urine culture etc. 02/19/2025 Rectal bleeding (ICD-10 - K62.5) Check CBC check 2023 endoscopy colonoscopy reports set up follow-up appointment [facility] GI check iron iron-binding capacity 11/24/2024 Elevated sed rate (ICD-10 - R70.0) No headache no PMR symptoms will recheck sed rate 03/10/2025 Anemia, chronic disease (ICD-10 - D63.8) 02/11/2025 Asthma (ICD-10 - J45.909) 09/01/2025 Fatty liver (ICD-10 - K76.0) Stable recheck LFTs patient does not drink on numerous medications that could impact liver. Follow-up [facility] GI as well 08/04/2025 Hypothyroidism, unspecified (ICD-10 - E03.9) Stable check TSH follow-up in 6 months 08/04/[address] (ICD-10 - R93.0) Neurologically intact because of the head CT from [facility] we will check an MRI 11/24/2024 Acute cough (ICD-10 - R05.1) Check CBC with differential chest chest x-ray Augmentin 875 twice daily 10 days 09/01/2025 Anemia, unspecified (ICD-10 - D64.9) Follow-up [facility] hematology check CBC 03/10/2025 Systemic lupus erythematosus, unspecified SLE type, unspecified organ involvement status (ICD-10 - M32.9) 02/11/2025 Disorder of lipoprotein metabolism, unspecified (ICD-10 - E78.9) 02/11/2025 Hypothyroidism, unspecified (ICD-10 - E03.9) 03/10/2025 Type 2 diabetes mellitus with hyperglycemia, without long-term current use of insulin (ICD-10 - E11.65) 09/01/2025 Abnormal brain MRI (ICD-10 - R90.89) Set up consultation with neurology at [facility] for abnormal brain MRI. Patient's neurologic exam nonfocal no significant symptoms at the present time 03/10/2025 Essential (primary) hypertension (ICD-10 - I10) BP at goal 03/10/2025 Left otitis media, unspecified otitis media type (ICD-10 - H66.92) She is much better with antibx. Will complete entire course 08/04/2025 Other Recheck labs si nce patient is still anemic. Strongly recommend follow-up with the specialist and gastroenterology within the next 7 days. If bleeding becomes more heaviy or she becomes symptomatic with dizziness lightheadedness palpitation she is to go back to the ER 03/10/2025 Other I am seeing the patient under the supervision of the co-signing physician. The physician was available for consultation at the time of the office visit. 03/04/2025 Other I am seeing the patient under the supervision of the co-signing physician. The physician was available for consultation at the time of the office visit. PLAN OF TREATMENT Pending Test Test Name Order Date Stress Echocardiogram 03/18/2024 EKG 11/08/2023 Nuclear Stress Test 02/21/2024 24 hour ambulatory blood pressure monito r 12/16/2024 Echocardiogram 07/31/2023 Echocardiogram 01/14/2024 CXR 04/27/2025 US Abdomen Complete 07/31/2023 US Abdomen Complete 06/09/2025 Magnesium-251181 04/28/2025 AST ( SGOT) 05/27/2021 ALT(DO NOT USE) 05/27/2021 AST ( SGOT) 01/09/2022 ALT(DO NOT USE) 01/09/2022 AST ( SGOT) 05/11/2022 ALT(DO NOT USE) 05/11/2022 FRANK IFA SCREEN W/REFL TO TITER AND VERONIQUE RN, IFA(QUEST) 09/08/2022 HEPATIC FUNCTION PANEL (35292) Future Test Test Name Order Date Overnight Oximetry 10/16/2016 CBC W/ AUTOMATED DIFF 11/29/2017 ALBUMIN 12/03/2019 AST ( SGOT) 12/03/2019 CBC W/ AUTOMATED DIFF 12/03/2019 ALT(DO NOT USE) 12/03/2019 ESR 01/25/2021 ALBUMIN 01/25/2021 AST ( SGOT) 01/25/2021 CREATININE 01/25/2021 CRP 01/25/2021 CBC W/ AUTOMATED DIFF 01/25/2021 Complement 3 01/25/2021 Complement 4 01/25/2021 ALT(DO NOT USE) 01/25/2021 URINALYSIS WITH MICROSCOPIC 01/25/2021 ELECTROLYTES 01/25/2021 DNA ANTIBODY, DOUBLE STRANDED(Anti Nativ e DNA) 01/25/2021 ESR 01/11/2023 ALBUMIN 01/11/2023 AST ( SGOT) 01/11/2023 CREATININE 01/11/2023 CRP 01/11/2023 CBC W/ AUTOMATED DIFF 01/11/2023 Complement 3 01/11/2023 Complement 4 01/11/2023 ALT (SGPT) 01/11/2023 DNA (DOUBLE-STRANDED [place]) ANTIBODY COMPLETE URINALYSIS 11/11/2023 COMPLETE URINALYSIS 11/29/2023 COMPLETE URINALYSIS 12/12/2023 BASIC METABOLIC PANEL 01/11/2024 HEPATIC FUNCTION PANEL 01/11/2024 THYROID PANEL (TSH FT4) 01/11/2024 CBC (COMPLETE BLOOD COUNT) 01/11/2024 HEMOGLOBIN A1C 01/11/2024 LIPID PANEL 02/05/2024 HEPATIC FUNCTION PANEL 02/05/2024 Albumin-144262 12/17/2024 LDH-240637 12/17/2024 AST (SGOT)-800158 12/17/2024 Iron and TIBC-441319 12/17/2024 Magnesium-658924 12/17/2024 Haptoglobin-695081 12/17/2024 Ferritin-522702 12/17/2024 Calcium, Ionized, Serum-172774 Reticulocyte Count-452242 12/17/2024 PTH, Intact-959888 12/17/2024 Albumin-177094 02/02/2025 Magnesium-534868 02/02/2025 TSH-206235 02/02/2025 CBC, Platelet, w/o Differential-764327 0 02/02/2025 Lipid Panel-253704 02/02/2025 BMP8+eGFR-019082 02/02/2025 Iron and TIBC-875942 02/20/2025 Vitamin U83-209289 02/20/2025 Folate (Folic Acid), Serum-068847 2024 Ferritin-552178 02/20/2025 Reticulocyte Count-051303 02/20/2025 CBC With Differential/Platelet-207402 Iron and TIBC-505872 04/28/2025 Ferritin-235197 04/28/2025 CBC With Differential/Platelet-097161 CBC, Platelet, w/o Differential-937616 1 Urinalysis, Complete w/ME-145161 025 Albumin/Creatinine Ratio,Urine-869278 T4 Free Direct (Thyroxine)-587805 2024 TSH-917398 09/30/2025 T4 Free Direct (Thyroxine)-534876 2024 TSH-369702 10/14/2025 Thyroid Peroxidase (TPO) Ab-079969 10/14 T3 Free (Triiodothyronine)-353853 2024 CBC, Platelet, w/o Differential-426626 1 12/15/2024 Insurance Providers Payer Name Payer Address Payer Phone Subscriber Number Group Number Insured Name Patient Relationship to Insured Coverage Start Date Coverage End Date [facility] [address] [place], [place] [id number] [phone] [id number] KALYANI BARKLEY LANI Self - patient is the insured 8 MEDICATIONS ADMINISTERED Medication Instructions Date of Administration Dosage Notes Triamcinolone Acetonide, mul ti-dose vial, 10/03/2021 60 mg Triamcinolone Acetonide, mul ti-dose vial, 09/08/2022 60 mg MEDICAL (GENERAL) HISTORY Medical History History ICD Code systemic lupus erythematosis + FRANK, Anticardiolipin, false + RPR, low C4, leucopenia (2006) ---med faillures imuran-liver renal lupus---biopsy with Dr Valdez 04/11 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 Kwok Vaccination status COVID 4 shots. Flu sh ot q. year. Pneumovax x1. Tdap 2021 Autoimmune hepatitis. Ssis Etl Developer Dr. Zhou Sales Porter Dr. Angel Tapia. Exa m March [address] Delgado DIRECTOR EMERGENCY Dr. Olmstead Nuclear stress test 2021 normal Bone density test March 2021 normal Mammogram 2019 A1c 6.13 December 2022 alopecia Colonoscopy and endoscopy 2023 endoscopy negative colonoscopy serrated polyp BMD Dec 2023 Bone density November 2023 normal Mammogram January 05, [address] of the abdomen January 2024 no acute abnormality hepatic steatosis and splenomegaly. Nonobstructing 5 mm stone right kidney. Bandlike opacity lung bases just with atelectasis Chest x-ray April 07 atelectasis or pneumo marlee and associated effusions Echocardiogram January 2024 le ft ventricle size normal ejection fraction 55 to 65% no regional wall motion abnormalities normal diastolic function no pericardial effusion compared to 2021 small effusion has resolved January 2024 CT angio of the chest no acut e aortic syndrome History of pancytopenia seco ndary to chronic liver disease and medication medical oncologist Dr. Andrea Renal follow-up 2023 24-hour amatory blood pressu re monitor July 2024 elevated blood pressure awake daytime average and nighttime CTA of the chest manage ches t x-ray December 2024 negative for PE small right pleural effusion Chest CT July 2025 negative Cardiac echo August 2025 LVH moderate M R EF decreased to 37% MRI of the brain August right thalamus internal capsule basal ganglia area with question early infarct versus changes related to the lupus Surgical History Surgery Date(Month/Year) hemroid binding 07/28/25 LEEP 01/2024 liver biopsy 11/16/21 Shortened bone in L forearm (Dr. Villarreal) R stapedectomy Hospitalization History Reason Date(Month/Year) [facility]: acute asthma exac, hematochezia 05/06 025 [facility] dx Acute asthma exacerbation ,Volume overload and SOB 07/21/2025 [place] 07[place] [facility] [place]17 [facility] ED Migraine hytension 3 days 02/21/18 pain in the rib cage 06/2020 [facility] 05/2023 [facility]- asthma attack 09/28/23 [facility]: Hypertension, Lupus, Angioedema, Al lergic reaction 10/20/23 [facility]: Chest pain, Dyspnea, Cough 12/07/23 [facility]: Otitis media, lupus fla re, diffuse joint pain, hypoxia, pneumonia 01/02/24 [facility]: acute asthma exacerbati on, acute hypox. Resp. failure, parainfluenza infection, anema/blood loss, hematochezia 03/2025
--- OUTSIDE RECORDS SUMMARY | 2025-09-02 12:01 | XMS_ITS | Clinical Summary ---
Author Organization [address] Address [address] [place] [address] Phone Care Team Providers Care Fire Protection Fabricator Name Role Phone Jamir Longoria MD Primary Care Provider [phone] Allergies Active Allergy Reactions Criticality Noted Date Comments Acetaminophen-Codeine 01/20/2021 Codeine Nausea And Vomiting,Unknown,Other,GI intolerance 01/20/2021 Losartan 01/17/2024 Sulfamethoxazole-Trimethop rim Unknown,Other 01/20/2021 Valsartan Anaphylaxis High 10/09/2023 Medications acetaminophen (TYLENOL) 500 mg tablet Take 1 tablet (500 mg total) by mouth every 6 hours as needed. Active albuterol sulfate (ProAir RespiClick) 90 mcg/actuation aerosol powdr breath activated once daily as needed. Active amLODIPine (NORVASC) 10 mg tablet Take 1 tablet (10 mg total) by mouth 1 (one) time each day. 2 Active aspirin 81 mg EC tablet Take 1 tablet (81 mg total) by mouth. 2 Active atorvastatin (LIPITOR) 20 mg tablet Active budesonide-for moteroL (SYMBICORT) 160-4.5 mcg/actuation inhaler Inhale 2 puffs by mouth 2 (two) times a day. 0 Active carvediloL (COREG) 25 mg tablet TAKE 1 TABLET BY MOUTH TWICE A DAY WITH FOOD FOR 30 DAYS 4 Active cetirizine (ZyrTEC) 10 mg tablet Take 1 tablet (10 mg total) by mouth 1 (one) time each day. 1 Active cholecalcifero l (VITAMIN D-3) 25 mcg (1,000 unit) capsule Take 2 capsules (2,000 Units total) by mouth 2 times daily. Active clobetasoL (TEMOVATE) 0.05 % topical solution APPLY TO SCALP DAILY AT NIGHT AFTER SHOWER AND BEFORE BED 3 Active cloNIDine (CATAPRES) 0.1 mg tablet Take 1 tablet (0.1 mg total) by mouth 2 (two) times a day. Active cyanocobalamin , vitamin B-12, 1,000 mcg tablet, sublingual USE 1 TABLET UNDER THE TONGUE AND ALLOW TO DISSOLVE SUBLINGUAL ONCE A DAY 30 DAY(S) Active cyclobenzaprin e (FLEXERIL) 10 mg tablet Take 1 tablet (10 mg total) by mouth. Active desonide (DESOWEN) 0.05 % ointment Apply topically 2 times daily. Active diphenhydrAMIN E (BENADRYL) 25 mg capsule Take 1 capsule (25 mg total) by mouth if needed. 2 Active EPINEPHrine (EPIPEN) 0.3 mg/0.3 mL injection Inject as directed See administration instructions. 3 Active gabapentin (NEURONTIN) 300 mg capsule Take 1 capsule (300 mg total) by mouth daily. 5 Active hydrocortisone (ANUSOL-HC) 2.5 % rectal cream APPLY A SMALL AMOUNT VIA APPLICATOR TWICE A DAY 4 Active hydroxychloroq uine (PLAQUENIL) 200 mg tablet TAKE 2 TABLETS BY MOUTH DAILY FOR 90 DAYS 0 Active levothyroxine (SYNTHROID, LEVOTHROID) 200 mcg tablet Take 1 tablet (200 mcg total) by mouth 1 (one) time each day. 0 Active lidocaine (LIDODERM) 5 % patch once daily as needed. Active magnesium oxide (MAG-OX) 400 mg (241.3 elemental magnesium) tablet Take 1 tablet (400 mg total) by mouth 1 (one) time each day. 4 Active metFORMIN (GLUCOPHAGE) 500 mg tablet Take 1 tablet (500 mg total) by mouth 2 (two) times a day. 0 Active mycophenolate (CELLCEPT) 500 mg tablet Take 1 tablet (500 mg total) by mouth. 0 Active omeprazole (PriLOSEC) [address] capsule TAKE 1 CAPSULE BY MOUTH EVERY DAY 30 MINUTES BEFORE MORNING MEAL FOR 90 DAYS Active Gavilax 17 gram/dose oral powder MIX 17 GRAMS IN WATER AND DRINK BY MOUTH DAILY X14 DAYS 5 Active KLOR-CON 20 mEq CR tablet TAKE 1 TABLET BY MOUTH EVERY DAY WITH FOOD FOR 30 DAYS Active predniSONE (DELTASONE) 5 mg tablet Take 2 tablets (10 mg total) by mouth. 4 Active senna 8.6 mg tablet TAKE 2 TABLETS BY MOUTH EVERY DAY AT BEDTIME NEEDED Active tiotropium (SPIRIVA RESPIMAT) 2.5 mcg/actuation inhalation spray Inhale 2 puffs by mouth 1 (one) time each day. 4 Active traMADoL (ULTRAM) 50 mg tablet Take 1 tablet (50 mg total) by mouth once daily as needed. Active triamcinolone (KENALOG) 0.1 % cream triamcinolone acetonide 0.1 % topical cream Active valACYclovir (VALTREX) 1 gram tablet Take 1 tablet (1,000 mg total) by mouth. Active zinc sulfate (ZINCATE) 220 mg (50 mg elemental zinc) capsule Take 1 capsule (220 mg total) by mouth daily. Active tirzepatide (Mounjaro) 2.5 mg/0.5 mL injection Inject under the skin. 5 Active bisacodyL (DULCOLAX) 5 mg EC tablet Take 2 tablets by mouth right before beginning bowel prep. See instructions provided by the office 2 tablet 5 Active polyethylene glycol (Golytely) 236-22.74-6.74 -5.86 gram solution Take 4L by mouth once for one dose. May substitue any PEG. Starting at 2PM the day before your procedure drink 1 8oz glasses at your own pace until you complete half of the gallon. Finish 2nd half of the gallon at 8PM. 4000 mL 5 Active Active Problems Problem Noted Date Diagnosed Date Raynaud's syndrome 06/26/2025 Class 1 obesity 06/03/2025 Severe obesity ([facility] V24, [facility] V28) 2024 P[place] [place] [facility] V28) 06/03/20 Hematochezia 06/03/2025 Iron deficiency anemia due to chronic blood loss 06/03/2025 Assessment & Plan (06/26/2025 6:37 PM EDT): Worsening anemia Repeat colonoscopy and upper endoscopy scheduled August 03 Patient also followed by hematology Irritable bowel syndrome with constipation 06/03 Chronic anemia 03/27/2025 Overview (03/27/2025): Unremarkable GI workup 10/27 colon/EGD 05/28 capsule endoscopy Assessment & Plan (03/27/2025 6:08 PM EDT): Transfused while hospitalized for asthma exacerbation Will recheck labs Discussed potential referral to surgeon for hemorrhoids although I feel that she should get the constipation under better control first. Will rediscuss at follow-up and if bleeding persist despite better bowel movements will refer to surgeon. Asthma 03/27/2025 HLD (hyperlipidemia) 03/27/2025 HTN (hypertension) 03/27/2025 GERD (gastroesophageal reflux disease) SLE (systemic lupus erythema tosus) [place] [place] [facility] [place]28) 03/27/2025 Hypothyroid 03/27/2025 Diabetes mellitus [place] [place], [facility] V28) Gastroparesis 03/27/2025 FOWLER (nonalcoholic steatohepatitis) 03/27/2025 Assessment & Plan (06/26/2025 6:37 PM EDT): 04/25/25 Total bilirubin <0.2 Alkaline phosphatase 109 AST 52 ALT 54 Orders: US Abdomen Complete; Future Assessment & Plan (03/27/2025 6:08 PM EDT): Orders: Comprehensive metabolic panel; Future Bilateral low back pain with right-sided sciatic a 03/24/2025 Neuropathic pain 03/24/2025 Overview (06/03/2025): Toes bilaterally, possibly secondary to poorly controlled diabetes > 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 Right groin pain 03/24/2025 Rotator cuff tendinitis, right 03/24/2025 On mycophenolate mofetil therapy 12/23/2024 Overview (06/03/2025): Outside labs 08/2024 quant TB neg HBsAg neg HCV Ab neg Gastrointestinal hemorrhage 05/15/2024 Conductive hearing loss of right ear 03/25/2024 Sensorineural hearing loss 03/25/2024 Dysphagia 03/24/2024 Overview (06/03/2025): Dysphagia, pharyngoesophageal phase; Note: Date Diagnosed: 03/24/2024 9:20 AM (R13.14) 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 At that time there is no fixed or reversible defects and the LVEF was greater than 75% with stress and 70% at rest. I did tell her if she had any chest discomfort lasting over 15- minutes to artem 911. Contact dermatitis 01/20/2021 Rheumatoid arthritis ([facility] V24, [facility] V28) 01/20/2021 Stage 1 chronic kidney disease 01/20/2021 Proteinuria 01/20/2021 Mixed conductive and sensorineural hearing loss, bilateral 01/06/2021 Overview (06/03/2025): Mixed conductive and sensorineural hearing loss, bilateral; Note: Date Diagnosed: 01/06/2021 5:39 PM (H90.6) Nonobliterative otosclerosis involving oval wind ow 01/06/2021 Overview (06/03/2025): Otosclerosis involving oval window, nonobliterative, bilateral; Note: Date Diagnosed: 01/06/2021 5:39 PM (H80.03) Pain in both feet 07/25/2017 Plantar fasciitis 07/25/2017 Encounters Date Type Department Care Team Description 08/07/2025 3:00 PM EDT Office Visit [facility] Hematology Oncology [address] [place] [phone] Virginia Andrea MD Iron deficiency anemia due to chronic blood loss (Primary Dx) 08/07/2025 10:00 AM EDT - 08/07/2025 11:59 PM EDT Hospital Encounter [facility] [address] [place] [phone] Virginia Andrea MD Hematochezia (Primary Dx); Iron deficiency anemia due to chronic blood loss Discharge Disposition: Home or Self Care 08/05/2025 Telephone [facility] Hematology Oncology [address] [place] [phone] Virginia Andrea MD 07/27/2025 Telephone Gastroenterology - [address] [phone] José Miguel Zhou MD 07/20/2025 Telephone Gastroenterology - [address] [phone] José Miguel Zhou MD 07/20/2025 Telephone [facility] Hematology Oncology [address] [place] [phone] Virginia Andrea MD 07/14/2025 11:45 AM EDT Office Visit [facility] Hematology Oncology [address] [place] [phone] Virginia Andrea MD Microcytic anemia (Primary Dx) 06/26/2025 10:00 AM EDT Office Visit Gastroenterology - [address] [phone] Matteo Carpenter PA Chronic anemia (Primary Dx); Iron deficiency anemia due to chronic blood loss; Chronic constipation; Rectal bleeding; Rectal pain; FOWLER (nonalcoholic steatohepatitis) 06/26/2025 Lab Requisition [facility] - Main Lab [address] [facility] [place] [phone] Anthony Olmstead MD Atypical squamous cells of undetermined significance on cytologic smear of cervix (ASC-US) 06/05/2025 11:00 AM EDT Office Visit [facility] Hematology Oncology [address] [place] [phone] Virginia Andrea MD Chronic anemia (Primary Dx) 06/04/2025 Telephone Gastroenterology - [address] [place] [phone] Caroline Alfaro MA 06/03/2025 2:40 PM EDT Office Visit Gastroenterology - [address] [place] [phone] José Miguel Zhou MD Hematochezia (Primary Dx); Iron deficiency anemia due to chronic blood loss; Irritable bowel syndrome with constipation from Last 3 Months Immunizations Immunization Administration Dates Next Due Pfizer SARS-CoV-2 COVID-19, mRNA, LNP-S, preservative free 09/30/2021,02/12/2021,01/22/2021 Surgical History Surgery Date Site/Laterality Comments COLONOSCOPY 10/05/2023 - 11/04/2023 SSA x1 (5 safia ) Dr. Zhou ESOPHAGOGASTRODUODENOSCOPY 10/05/2023 - 11/04/2023 unremarkable OTHER SURGICAL HISTORY 05/05/2024 - 06/04/2024 unremarkable (for iron def anemia) Social History Tobacco Use Types Packs/Day Years Used Date Smoking Tobacco: Never Passive Smoke Exposure: Never Smokeless Tobacco: Never Tobacco Cessation:Counseling Given: [...] Sign Reading Time Taken Comments Blood Pressure 129/84 08/07/2025 4:14 PM EDT Pulse 87 08/07/2025 4:14 PM EDT Temperature 36.3 C (97.4 F) 08/07/2025 4:14 PM EDT Respiratory Rate 18 08/07/2025 4:14 PM EDT Oxygen Saturation 100% 08/07/2025 2:43 PM EDT Inhaled Oxygen Concentration - - Weight 98.9 kg (218 lb) 07/14/2025 11:48 AM EDT Height 162.6 cm (5' 4 ) 06/26/2025 9:57 AM EDT Body Mass Index 37.42 06/26/2025 9:57 AM EDT Plan of Treatment Upcoming Encounters Date Type Department Care Team (Late st Contact Info) Description 11/10/2025 11:45 AM EST Office Visit [facility] Hematology Oncology [address] [place] [phone] Virginia Andrea MD [address] [place] [address] Health Maintenance Due Date Last Done Comments Diabetes: Annual Foot Exam 1982 Diabetes: Annual Retina Eye Exam 1982 Hepatitis B Vaccines (1 of 3 - 19+ 3-dose series) 1991 Pneumococcal Vaccine: 50+ Years (1 of 2 - PCV) 1991 Zoster Vaccines (1 of 2) 1991 Cholesterol Screening (Lipid Panel) 10/14/2022 HIV Screening 10/14/2022 Hepatitis C Screening 10/14/2022 Social Influencers of Health Screening 10/14/2022 RSV Immunization Adult Patients (1 - Risk 50-74 years 1-dose series) 2022 Diabetes: Annual Urine Albumin-Creatinine Ratio (uACR) 10/21/2022 Diabetes: Blood Sugar Control Test (HGBA1C) 10/21/2022 Depression Screening 11/05/2024 COVID-19 Vaccine ( season) 2025 12/06/2022, 09/30/2021, 02/12/2021, Additional history exists Influenza Vaccine (#1) 2025 , 07/31/2023, 10/10/2016 Breast Cancer Screening 01/15/2026 01/16/20 24, 10/11/2020, 11/23/2018 Diabetes: Annual GFR (Glomerular Filtration Rate) 07/14/2026 07/14/2025, 11/18/2024, 09/10/2024, Additional history exists Hypertension/CHF/CAD Annual BMP Blood Test 07/14/2026 07/14/2025, 11/18/2024, 09/10/2024, Additional history exists Colorectal Cancer Screening: Colonoscopy 01/01/2027 01/01/2017 Cervical Cancer Screening: Pap Smear 06/25/2028 06/25/2025, 10/31/2024 DTaP,Tdap,and Td Vaccines (3 - Td or Tdap) 02/06/2034 02/07/2024, 05/29/2023 HIB Vaccines Aged Out No longer eligi [...] age to complete this topic Meningococcal B Vaccine Aged Out No l onger eligible based on patient's age to complete this topic RSV Immunization Patients Under 20 months Aged Out No longer eligible based on patient's age to complete this topic Varicella Vaccines Aged Out No longer eligible based on patient's age to complete this topic Procedures Procedure Name Priority Date/Time Associated Diagnosis Comments CBC WITH AUTO DIFFERENTIAL STAT 08/11/2025 12:03 PM EDT Hematochezia TYPE AND SCREEN STAT 08/11/2025 12:03 PM EDT Hematochezia CBC AND DIFFERENTIAL STAT 08/11/2025 12:03 PM EDT Hematochezia TRANSFUSE RED BLOOD CELLS Routine 08/07/2025 2:23 PM EDT Iron deficiency anemia due to chronic blood loss TRANSFUSE RED BLOOD CELLS Routine 08/07/2025 12:13 PM EDT Iron deficiency anemia due to chronic blood loss PREPARE RBC Routine 08/07/2025 11:33 AM EDT Iron deficiency anemia due to chronic blood loss MANUAL DIFFERENTIAL - SYSMEX WAM STAT 08/07/2025 10:18 AM EDT Hematochezia PATHOLOGIST REVIEW BLOOD SMEAR STAT 08/07/2025 10:18 AM EDT Hematochezia CBC WITH AUTO DIFFERENTIAL STAT 08/07/2025 10:18 AM EDT Hematochezia CBC AND DIFFERENTIAL STAT 08/07/2025 10:18 AM EDT Hematochezia TYPE AND SCREEN STAT 08/07/2025 10:18 AM EDT Hematochezia CBC WITH AUTO DIFFERENTIAL Routine 07/14/2025 12:42 PM EDT Rectal bleeding Rectal pain Anemia, unspecified type COMPREHENSIVE METABOLIC PANEL Routine 07/14/2025 12:42 PM EDT FOWLER (nonalcoholic steatohepatitis) FERRITIN Routine 07/14/2025 12:42 PM EDT Rectal bleeding Rectal pain Anemia, unspecified type IRON AND TIBC Routine 07/14/2025 12:42 PM EDT Rectal bleeding Rectal pain Anemia, unspecified type CBC AND DIFFERENTIAL Routine 07/14/2025 12:42 PM EDT Rectal bleeding Rectal pain Anemia, unspecified type PAP SMEAR Routine 06/25/2025 12:00 AM EDT Atypical squamous cells of undetermined significance on cytologic smear of cervix (ASC-US) CBC WITH AUTO DIFFERENTIAL Routine 06/05/2025 11:38 AM EDT Chronic anemia VITAMIN B12 AND FOLATE Routine 06/05/2025 11:38 AM EDT Chronic anemia IRON AND TIBC Routine 06/05/2025 11:38 AM EDT Chronic anemia FERRITIN Routine 06/05/2025 11:38 AM EDT Chronic anemia CBC AND DIFFERENTIAL Routine 06/05/2025 11:38 AM EDT Chronic anemia HAPTOGLOBIN Routine 06/05/2025 11:38 AM EDT Chronic anemia RETICULOCYTE COUNT Routine 06/05/2025 11 :38 AM EDT Chronic anemia ELSY SCREENING DIGITAL Routine 01/16/2024 10:12 AM EDT Encounter for screening mammogram for malignant neoplasm of breast EXTERNAL COLONOSCOPY REPORT Routine 01/01/2017 8:55 AM EST from Last 3 Months or Most Recently Relevant to Health Maintenance Results * (ABNORMAL) CBC auto differential (08/11/2025 12:03 PM EDT) Only the most recent of4 resultswithin the time period is included. WBC 5.1 4.8 - 10.8 K/mcL LAB HEMETOLOGY METHOD 08/11/2025 12:21 PM EDT [facility] RBC 3.90 3.80 - 4.80 M/mcL LAB HEMETOLOGY METHOD 08/11/2025 12:21 PM EDT [facility] Hemoglobin 10.2(L) 11.5 - 16.0 g/dL LAB HEMETOLOGY METHOD 08/11/2025 12:[address] [facility] Hematocrit 33.0(L) 35.0 - 47.0 % LAB HEMETOLOGY METHOD 08/11/2025 12:[address] [facility] MCV 84.4 79.0 - 98.0 FL LAB HEMETOLOGY METHOD 08/11/2025 12:[address] [facility] MCH 26.1(L) 27.0 - 32.0 pcg LAB HEMETOLOGY METHOD 08/11/2025 12:[address] [facility] MCHC 30.9(L) 32.0 - 37.0 g/dL LAB HEMETOLOGY METHOD 08/11/2025 12:[address] [facility] RDW 20.8(H) 11.0 - 15.0 % LAB HEMETOLOGY METHOD 08/11/2025 12:[address] [facility] Platelets 125(L) 130 - 400 K/mcL LAB HEMETOLOGY METHOD 08/11/2025 12:[address] [facility] MPV 8.9 7.0 - 11.0 FL LAB HEMETOLOGY METHOD 08/11/2025 12:[address] [facility] NRBC 0.0 <1.0 % LAB HEMETOLOGY METHOD 08/11/2025 12:[address] [facility] NRBC Absolute 0.00 <0.10 K/mcL LAB HEMETOLOGY METHOD 08/11/2025 12:[address] [facility] Neutrophils Relative 62.8 % LAB HEMETOLOGY METHOD 08/11/2025 12:[address] [facility] Lymphocytes Relative 30.1 % LAB HEMETOLOGY METHOD 08/11/2025 12:[address] [facility] Monocytes Relative 5.1 % LAB HEMETOLOGY METHOD 08/11/2025 12:[address] [facility] Eosinophils Relative 0.2 % LAB HEMETOLOGY METHOD 08/11/2025 12:21 PM EDT [facility] Basophils Relative 0.2 % LAB HEMETOLOGY METHOD 08/11/2025 12:[address] [facility] Immature Granulocytes Relative 1.6 % LAB HEMETOLOGY METHOD 08/11/2025 12:21 PM EDT [facility] Neutrophils Absolute 3.20 1.50 - 7.00 K/mcL LAB HEMETOLOGY METHOD 08/11/2025 12:21 PM EDT [facility] Lymphocytes Absolute 1.53 1.00 - 5.00 K/mcL LAB HEMETOLOGY [facility] Monocytes Absolute 0.26 0.20 - 1.00 K/mcL LAB HEMETOLOGY METHOD 08/11/2025 12:21 PM EDT [facility] Eosinophils Absolute 0.01 0.00 - 0.50 K/mcL LAB HEMETOLOGY METHOD 08/11/2025 12:21 PM EDT [facility] Basophils Absolute 0.01 0.00 - 0.20 K/mcL LAB HEMETOLOGY METHOD 08/11[facility]25 [facility] Immature Granulocytes Absolute 0.08(H) 0.00 - 0.03 K/mcL LAB HEMETOLOGY METHOD 08/11/2025 12:21 PM EDT [facility] Blood Venous blood specimen / Unknown Venipuncture / Unknown 08/11/2025 12:03 PM EDT 08/11/2025 12:12 PM EDT us Virginia Andrea MD LAB BLOOD ORDERABLES Final R esult [facility] [address] [place] [address], * Type and screen (08/11/2025 12:03 PM EDT) Only the most recent of2 resultswithin the time period is included. ABO Group O 08/11/2025 1:41 PM EDT [facility] Rh Type Positive 08/11/2025 1:41 PM EDT [facility] Antibody Screen Negative 08/11/2025 1:41 PM EDT [facility] Blood Venous blood specimen / Unknown Venipuncture / Unknown 08/11/2025 12:03 PM EDT 08/11/2025 12:12 PM EDT us Virginia Andrea MD LAB BLOOD BANK TEST ORDERABL ES Final Result [facility] [address] [place] [address], * Transfuse RBC (08/07/2025 4:18 PM EDT) Only the most recent of2 resultswithin the time period is included. us Virginia Andrea MD BLOOD TRANSFUSION ORDERABLES Final Result * Prepare RBC: 2 Units (08/07/2025 11:33 AM EDT) Product Code [id number] 08/07/2025 12:16 PM EDT [facility] Unit Number [id number] 08/07/20 12:16 PM EDT [facility] Crossmatch Compatible 08/07/2025 12:03 PM EDT [facility] Dispense Status Transfused 08/07/2025 12:16 PM EDT [facility] Unit ABO Rh ONEG 08/07/2025 12:16 PM EDT [facility] Unit Expiration Date Time [id number] 08/07/2025 12:16 PM EDT [facility] Unit Blood Type 9500 08/07/2025 12:16 PM EDT [facility] Product Code [id number] 08/07/2025 2:25 PM EDT [facility] Unit Number [id number] 08/07/20 2:25 PM EDT [facility] Crossmatch Compatible 08/07/2025 12:03 PM EDT [facility] Dispense Status Transfused 08/07/2025 2:25 PM EDT [facility] Unit ABO Rh ONEG 08/07/2025 2:25 PM EDT [facility] Unit Expiration Date Time [id number] 08/07/2025 2:25 PM EDT [facility] Unit Blood Type 9500 08/07/2025 2:25 PM EDT [facility] Blood Venous blood specimen / Unknown 08/07/2025 11:33 AM EDT 08/07/2025 10:42 AM EDT Virginia Andrea MD BLOOD BANK PRODUCT ORDERABLE S Final Result [facility] [address] [place] [address], * (ABNORMAL) Manual differential (08/07/2025 10:18 AM EDT) Neutrophils % 61.0 % LAB HEMETOLOGY METHOD 08/07/2025 11:30 AM EDT [facility] Lymphocytes % 34.0 % LAB HEMETOLOGY METHOD 08/07/2025 11:30 AM EDT [facility] Monocytes % 5.0 % LAB HEMETOLOGY METHOD 08/07/2025 11:30 AM EDT [facility] Eosinophils % 0.0 % LAB HEMETOLOGY METHOD 08/07/2025 11:30 AM EDT [facility] Basophils % 0.0 % LAB HEMETOLOGY METHOD 08/07/2025 11:30 AM EDT [facility] Neutrophils Absolute Manual 1.53 1.50 - 7.00 K/mcL LAB HEMETOLOGY METHOD 08/07/2025 11:30 AM EDT [facility] Lymphocytes Absolute 0.85(L) 1.00 - 5.00 K/mcL LAB HEMETOLOGY METHOD 08/07/2025 11:30 AM EDT [facility] Monocytes Absolute Manual 0.13(L) 0.20 - 1.00 K/mcL LAB HEMETOLOGY METHOD 08/07/2025 11:30 AM EDT [facility] Eosinophils Absolute Manual 0.00 0.00 - 0.50 K/mcL LAB HEMETOLOGY METHOD 08/07/2025 11:30 AM EDT [facility] Basophils Absolute Manual 0.00 0.00 - 0.20 K/mcL LAB HEMETOLOGY METHOD 08/07/2025 11:30 AM EDT [facility] Rbc Morphology Consistent with indices Consistent with indices, Normal for [place] LAB HEMETOLOGY METHOD 08/07/2025 11:30 AM EDT [facility] Platelet Morphology - WAM Normal Normal LAB HEMETOLOGY METHOD 08/07/2025 11:30 AM EDT [facility] Blood Venous blood specimen / Unknown Venipuncture / Unknown 08/07/2025 10:18 AM EDT 08/07/2025 10:42 AM EDT us Virginia Andrea MD LAB BLOOD ORDERABLES Final R esult [facility] [address] [place] [address], * Pathology review, blood smear (08/07/2025 10:18 AM EDT) [facility] Pathologist Review Blood Smear Microcytic Anemia and neutrophilic leukocytopenia No blasts. Negative for dysplasia Smear not diagnostic of etiology. 08/07/2025 2:25 PM EDT [facility] Blood Venous blood specimen / Unknown Venipuncture / Unknown 08/07/2025 10:18 AM EDT 08/07/2025 10:42 AM EDT Virginia Andrea MD LAB BLOOD ORDERABLES Final R esult [facility] [address] [place] [address], * (ABNORMAL) Iron and TIBC (07/14/2025 12:42 PM EDT) Only the most recent of2 resultswithin the time period is included. [facility] Iron 18(L) 40 - 150 mcg/dL LAB CHEMISTRY METHOD 07/14/2025 4:45 PM EDT [facility] TIBC 428 250 - 450 mcg/dL LAB CHEMISTRY METHOD 07/14/2025 4:45 PM EDT [facility] Iron Saturation 4(L) 15 - 50 % LAB CHEMISTRY METHOD 07/14/2025 4:45 PM EDT [facility] Blood Venous blood specimen / Unknown Venipuncture / Unknown 07/14/2025 12:42 PM EDT 07/14/2025 3:13 PM EDT Matteo HAN LAB BLOOD ORDERABLES Final R esult [facility] [address] [place] [address], [place] [phone] * (ABNORMAL) Ferritin (07/14/2025 12:42 PM EDT) Only the most recent of2 resultswithin the time period is included. [facility] Ferritin 5(L) 8 - 252 ng/mL LAB CHEMISTRY METHOD 07/14/2025 4:[address] [facility] Blood Venous blood specimen / Unknown Venipuncture / Unknown 07/14/2025 12:42 PM EDT 07/14/2025 3:13 PM EDT Matteo HAN LAB BLOOD ORDERABLES Final R esult [facility] [address] [place] [address], [place] [phone] * (ABNORMAL) Comprehensive metabolic panel (07/14/2025 12:42 PM EDT) [facility] Sodium 138 133 - 145 mmol/L LAB CHEMISTRY METHOD 07/14/2025 4:[address] [facility] Potassium 4.5 3.5 - 5.5 mmol/L LAB CHEMISTRY METHOD 07/14/2025 4:[address] [facility] Chloride 108 96 - 110 mmol/L LAB CHEMISTRY METHOD 07/14/2025 4:[address] [facility] CO2 28 21 - 32 mmol/L LAB CHEMISTRY METHOD 07/14/2025 4:[address] [facility] Anion Gap 2(L) 3 - 11 LAB CHEMISTRY METHOD 07/14/2025 4:[address] [facility] Glucose 141(H) 70 - 100 mg/dL LAB CHEMISTRY METHOD 07/14/2025 4:[address] [facility] BUN 19 5 - 25 mg/dL LAB CHEMISTRY METHOD 07/14/2025 4:[address] [facility] Creatinine 0.93 0.50 - 1.10 mg/dL LAB CHEMISTRY METHOD 07/14/2025 4:[address] [facility] eGFR 74 >=60 mL/min/1. 73m2 LAB CHEMISTRY METHOD 07/14/2025 4:50 PM EDT [facility] Comment:Calculation based on the Chronic Kidney Disease Epidemiology Collaboration (CKD-EPI) equation refit without adjustment for race. BUN/Creatinine Ratio 20.4 LAB CHEMISTRY METHOD 07/14/2025 4:50 PM EDT [facility] Calcium 8.4(L) 8.5 - 10.5 mg/dL LAB CHEMISTRY METHOD 07/14/2025 4:50 PM EDT [facility] AST (SGOT) 27 10 - 42 unit/L LAB CHEMISTRY METHOD 07/14/2025 4:[address] [facility] ALT (SGPT) 44 10 - 60 unit/L LAB CHEMISTRY METHOD 07/14/2025 4:[address] [facility] Alkaline Phosphatase 97 42 - 121 unit/L LAB CHEMISTRY METHOD 07/14/2025 4:50 PM T [facility] Total Protein 7.7 6.0 - 8.0 g/dL LAB CHEMISTRY METHOD 07/14/2025 4:[address] [facility] Albumin 3.3 3.2 - 5.0 g/dL LAB CHEMISTRY METHOD 07/14/2025 4:[address] [facility] Total Bilirubin 0.2 0.0 - 1.4 mg/dL LAB CHEMISTRY METHOD 07/14/2025 4:50 PM T [facility] Blood Venous blood specimen / Unknown Venipuncture / Unknown 07/14/2025 12:42 PM EDT 07/14/2025 3:13 PM EDT us Matteo HAN LAB BLOOD ORDERABLES Final R esult [facility] [address] [place] [address], * Pap smear (06/25/2025 12:00 AM EDT) Interpretation Negative for intraepithelial lesion or malignancy 07/03/2025 2:04 PM EDT [facility] General Categorization Negative 07/03/2025 2:04 PM EDT [facility] Specimen Adequacy Satisfactory for evaluation, endocervical/casarez sformation zone component absent 07/03/2025 2:04 PM EDT [facility] Pap Methodology Liquid Based Pap Test 07/03/2025 2:04 PM EDT [facility] Disclaimer The Pap test is a screening test which carries an inherent false negative rate. These test results should be correlated with the patient's clinical findings and history. This Pap test was processed using an automated screening system. Technical cytopathology services provided by [facility], at [address] [place] [address] (CLIA # [id number]/Kristen Cormier MD, Wedding Designer.) 07/03/2025 2:04 PM EDT [facility] Console Pap Interpretation Reported 07/03/2025 2:04 PM EDT [facility] Brushing/Spatula Cervix uteri structure / Unknown 06/25/2025 06/26/2025 6:52 AM EDT Anthony Olmstead MD LAB CYTOLOGY ORDERABLES Final Result [facility] [address] [place] [address], * Vitamin B12 and folate (06/05/2025 11:38 AM EDT) Vitamin B-12 516 250 - 900 pcg/mL LAB CHEMISTRY METHOD 06/05/2025 2:45 PM EDT [facility] Folate 13.2 2.8 - 17.0 ng/ml LAB CHEMISTRY METHOD 06/05/2025 2:45 PM EDT [facility] Blood Venous blood specimen / Unknown Venipuncture / Unknown 06/05/2025 11:38 AM EDT 06/05/2025 1:32 PM EDT us Virginia Andrea MD LAB BLOOD ORDERABLES Final R esult Performing Organization Address City/[facility]/ZIP Co de Phone Number [facility] [address] [place] [address], [place] [phone] * (ABNORMAL) Reticulocyte count (06/05/2025 11:38 AM EDT) Retic Ct Abs 0.050 0.030 - 0.090 M/mcL LAB HEMETOLOGY METHOD 06/05/2025 1:38 PM EDT [facility] Retic Ct Pct 1.3 0.7 - 1.7 % LAB HEMETOLOGY METHOD 06/05/2025 1:38 PM EDT [facility] Immature Retic Fract 18.2(H) 2.3 - 15.9 % LAB HEMETOLOGY METHOD 06/05/2025 1:38 PM EDT [facility] Reticulocyte Hemoglobin 15.7(L) >29.0 pcg LAB HEMETOLOGY METHOD 06/05/2025 1:38 PM EDT [facility] Blood Venous blood specimen / Unknown Venipuncture / Unknown 06/05/2025 11:38 AM EDT 06/05/2025 1:31 PM EDT us Virginia Andrea MD LAB BLOOD ORDERABLES Final R esult Performing Organization Address City/[facility]/ZIP Co de Phone Number [facility] [address] [place] [address], [place] [phone] * Haptoglobin (06/05/2025 11:38 AM EDT) Haptoglobin 171 16 - 200 mg/dL LAB CHEMISTRY METHOD 06/05/2025 2:22 PM EDT [facility] Blood Venous blood specimen / Unknown Venipuncture / Unknown 06/05/2025 11:38 AM EDT 06/05/2025 1:32 PM EDT us Virginia Andrea MD LAB BLOOD ORDERABLES Final R esult [facility] [address] [place] [address], * ELSY SCREENING DIGITAL (01/16/2024 10:12 AM EDT) Anatomical Region Laterality Modality Mammography 01/16/2024 8:01 AM EDT Narrative 01/16/2024 10:12 AM EDT [facility] Diagnostic Imaging Department [address] [place] [address] Patient: KALYANILANI /Age/Sex: 1970 - 53 - F Unit#: [id number] Location/Status: [facility]/REG CLI Mnemonic/Ordering Site: DIGSC/SPMAM Ordering Physician: JAMIR LONGORIA MD Elsy Screening Digital - 01/16/24813 Report Status:Signed EXAM: Elsy Screening Digital EXAM DATE AND TIME: 01/16/2024 8:15 AM HISTORY: Annual screening COMPARISON: 05/26/2013 TECHNIQUE: Bilateral digital breast tomosynthesis was performed in the CC and MLO projections. Computer aided detection with Real Savvy 3D 3.1 was employed. TISSUE DENSITY: b. There are scattered areas of fibroglandular density. FINDINGS: No suspicious masses, grouped microcalcifications, or areas of architectural distortion are seen. The skin and vascularity are unremarkable. IMPRESSION: Stable mammographic appearance of the breasts. No evidence of malignancy is seen. A negative mammogram in the presence of a clinically suspicious palpable abnormality does not preclude the possibility of malignancy or alter the indications for biopsy. BI-RADS: Category 1: Negative RECOMMENDATION(S): 1: Routine screening mammogram BILATERAL in 1 year. 3341F, 7059F Dictating Physician: LENARD BROWN MD Electronically Signed by: LENARD BROWN MD Dic Date/Time: 01/16/24 1008 Sign date/Time: 01/16/24 1012 Procedure Note Lenard Brown MD - 06/23/2024 [facility] Diagnostic Imaging Department [address] [place] [id number] Patient: LANI AUGUSTE /Age/Sex: 1970 - 53 - F Unit#: [id number] [facility] Mn[facility]onic/Ordering Site: [facility] Ordering Physician: JAMIR LONGORIA MD [facility] Screening Digital - 01/16/24 - 0814 Report Status:Signed EXAM: [facility] Screening Digital EXAM DATE AND TIME: 01/16/2024 8:15 AM HISTORY: Annual screening COMPARISON: 05/26/2013 TECHNIQUE: Bilateral digital breast tomosynthesis was performed in the CCand MLO projections. Computer aided detection with Real Savvy 3D 3.1was employed. TISSUE DENSITY: b. There [...] screening mammogram BILATERAL in 1 year. 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
--- OUTSIDE RECORDS SUMMARY | 2025-09-02 12:01 | XMS_ITS | Encounter Summary ---
Author Organization [facility] Address [address] [place] [address] Care Team Providers Care Commodities Trader Name Role Phone Jamir Rubi MD Primary Care Provider Encounter Details Date Type Department Care Team (Late Contact Info) Description 11/03/[address] [facility] Lab [address] [facility] [place] [phone] Anthony Olmstead MD [address] [place] [phone] Mild cervical dysplasia Social History Tobacco [...] Description 11/10/2025 11:45 AM EST Office Visit [facility] Hematology Oncology [address] [place] [phone] Virginia Andrea MD [address] [place] [address] documented as of this encounter Procedures Procedure Name Priority Date/Time Associated Diagnosis Comments TISSUE EXAM Routine 10/31/2024 Mild cervical dysplasia documented in this encounter Results * Tissue Exam (10/31/2024) Final Diagnosis Endocervical curettings: Chronic endocervicitis Benign squamous epithelium No squamous intraepithelial lesion or glandular neoplasm identified 11/04/2024 9:35 AM [facility] Clinical Information 05/2024 LSIL/JUAN PABLO 1 - ECC 11/04/2024 9:35 AM [facility] Gross Description A. Endocervix, ECC: Labeled with the patient's name and information. Received in formalin is a 0.2 cm aggregate of minute garcia-pink possible soft tissue fragments which is submitted in toto in a mesh bag in one cassette, multiple pieces, x 2. JOEY 11/04/2024 9:35 AM [facility] Disclaimer Unless otherwise specified, all tissue is 10% NB formalin fixed and paraffin embedded. 11/04/2024 9:35 AM [facility] Tissue Endocervical structure / Unknown 10/31/2024 11/03/2024 9:39 AM EST Anthony Olmstead MD LAB PATHOLOGY ORDERABLES Final R esult [facility] [address] [place] [address], documented in this encounter Visit Diagnoses Diagnosis Mild cervical dysplasia Mild dysplasia of cervix documented in this encounter Care Teams Commodities Trader Relationship Specialty Start Date End Date Jamir Rubi MD [address] [place] [address] PCP - General Internal Medicine 11/25/24 documented as of this encounter
== END 2025-09-02 10:23 | disposition home or self-care (01) ==
LOC: HO.HKAS 09:57
PROVIDERS: PCP Internal Medicine; Visit Provider Internal Medicine Hypertension Specialist
DX: M32.9 Systemic lupus erythematosus, unspecified (principal); I12.9 Hypertensive chronic kidney disease with stage 1 through stage 4 chronic kidney disease, or unspecified chronic kidney disease; N18.9 Chronic kidney disease, unspecified; R80.9 Proteinuria, unspecified
CPT/HCPCS: 99214